=== PATIENT | male | born 1935 | race Caucasian/White ===

== ENCOUNTER → 2016-11-24 | Outpatient (CLI) | payer MEDICARE, OTHER ==
[2016-11-24 12:36] LABS: MEAN CORPUSCULAR HEMOGLOBIN 31.9 pg (27.0-33.0); PLATELET COUNT, AUTOMATED 213 k/mm3 (150-450); RED CELL DISTRIBUTION WIDTH 13.9 % (11.5-14.5); WHITE BLOOD COUNT 7.6 K/mm3 (4.0-10.0)
[2016-11-24 13:13] LABS: ALBUMIN 3.6 GM/DL (3.2-5.2); ALKALINE PHOSPHATASE 105 U/L (45-117); ALT/SGPT 24 U/L (12-78); ANION GAP 8 MEQ/L (8-16); AST/SGOT 23 U/L (15-37); BLOOD UREA NITROGEN 17 MG/DL (7-18); CARBON DIOXIDE LEVEL 30 MEQ/L (21-32); CHLORIDE LEVEL 105 MEQ/L (98-107); CHOLESTEROL LEVEL 143 MG/DL (<200); CREATININE FOR GFR 1.12 MG/DL (0.70-1.30); GLOMERULAR FILTRATION RATE > 60.0 (>35); GLUCOSE, FASTING 115 MG/DL (83-110); POTASSIUM SERUM 4.3 MEQ/L (3.5-5.1); SODIUM LEVEL 143 MEQ/L (136-145); TOTAL PROTEIN 7.2 GM/DL (6.4-8.2); TRIGLYCERIDES LEVEL 72 MG/DL (<150)
[2016-11-24 14:25] LABS: BASOPHILS 3 % (0-4); EOSINOPHILS 1 % (0-5)
== END ==
LOC: M LAB 11:53
PROVIDERS: ATTEND Family Medicine
DX: E11.9 Type 2 diabetes mellitus without complications (principal)

== ENCOUNTER → 2017-01-13 | Outpatient (REF) | payer MEDICARE, OTHER | LOC: M LAB REF 17:12 | PROVIDERS: ATTEND Podiatrist | DX: M20.20 Hallux rigidus, unspecified foot (principal) ==

== ENCOUNTER → 2017-05-27 | Outpatient (CLI) | payer MEDICARE, OTHER ==
[2017-05-27 17:50] LABS: MEAN CORPUSCULAR HEMOGLOBIN 30.6 pg (27.0-33.0); MEAN CORPUSCULAR HGB CONC 33.2 g/dl (32.0-36.5); MEAN CORPUSCULAR VOLUME 92.4 fl (80.0-96.0); RED CELL DISTRIBUTION WIDTH 14.4 % (11.5-14.5); WHITE BLOOD COUNT 7.9 K/mm3 (4.0-10.0)
[2017-05-27 17:56] LABS: ALBUMIN 3.6 GM/DL (3.2-5.2); ALBUMIN/GLOBULIN RATIO 0.92 (1.00-1.93); ALKALINE PHOSPHATASE 89 U/L (45-117); ALT/SGPT 26 U/L (12-78); ANION GAP 6 MEQ/L (8-16); AST/SGOT 20 U/L (15-37); BILIRUBIN,TOTAL 0.7 MG/DL (0.2-1.0); BLOOD UREA NITROGEN 13 MG/DL (7-18); CALCIUM LEVEL 8.9 MG/DL (8.8-10.2); CARBON DIOXIDE LEVEL 28 MEQ/L (21-32); CHLORIDE LEVEL 106 MEQ/L (98-107); CREATININE FOR GFR 1.02 MG/DL (0.70-1.30); GLOMERULAR FILTRATION RATE > 60.0 (>35); GLUCOSE, FASTING 146 MG/DL (83-110); POTASSIUM SERUM 4.6 MEQ/L (3.5-5.1); SODIUM LEVEL 140 MEQ/L (136-145); TOTAL PROTEIN 7.5 GM/DL (6.4-8.2)
== END ==
LOC: M WUC 13:25
PROVIDERS: ATTEND Family Medicine
DX: E11.9 Type 2 diabetes mellitus without complications (principal); N40.1 Benign prostatic hyperplasia with lower urinary tract symptoms

== ENCOUNTER → 2017-11-27 | Outpatient (CLI) | payer MEDICARE, OTHER ==
[2017-11-27 15:03] LABS: HEMATOCRIT 38.6 % (42.0-52.0); HEMOGLOBIN 12.7 g/dl (14.0-18.0); MEAN CORPUSCULAR HEMOGLOBIN 29.9 pg (27.0-33.0); MEAN CORPUSCULAR HGB CONC 32.9 g/dl (32.0-36.5); MEAN CORPUSCULAR VOLUME 90.8 fl (80.0-96.0); PLATELET COUNT, AUTOMATED 179 10^3/uL (150-450); RED BLOOD COUNT 4.25 10^6/uL (4.30-6.10); RED CELL DISTRIBUTION WIDTH 14.6 % (11.5-14.5); WHITE BLOOD COUNT 7.9 10^3/uL (4.0-10.0)
[2017-11-27 15:26] LABS: ANION GAP 5 MEQ/L (8-16); BLOOD UREA NITROGEN 26 MG/DL (7-18); CARBON DIOXIDE LEVEL 29 MEQ/L (21-32); CHLORIDE LEVEL 106 MEQ/L (98-107); CREATININE FOR GFR 1.17 MG/DL (0.70-1.30); GLOMERULAR FILTRATION RATE > 60.0 (>35); GLUCOSE, FASTING 136 MG/DL (70-100); POTASSIUM SERUM 4.9 MEQ/L (3.5-5.1); SODIUM LEVEL 140 MEQ/L (136-145)
== END ==
LOC: M RAD 14:44
DX: Z01.818 Encounter for other preprocedural examination (principal); M86.68 Other chronic osteomyelitis, other site; Z95.0 Presence of cardiac pacemaker; J84.112 Idiopathic pulmonary fibrosis
CPT/HCPCS: 71046

== ENCOUNTER 2017-12-08 11:13 | Day surgery (SDC) | payer MEDICARE, OTHER ==
[~2017-12-08 11:13] MED LIST: LIDOCAINE 2% INJ 100 MG/5 ML SYRINGE As Ordered; MIDAZOLAM INJ 2 MG/2 ML VIAL (J2250) As Ordered; ONDANSETRON 4MG/2ML VIAL (J2405) As Ordered; PROPOFOL 200 MG/20 ML VIAL As Ordered; dexameTHASONE 4 MG/ML 1ML VIAL (J1100) As Ordered; fentaNYL 100 MCG/2 ML INJECTION (J3010) As Ordered
[2017-12-08] MEDS ORDERED: dexameTHASONE 4 MG/ML 1ML VIAL (J1100) As Ordered ×2 (13:13)
[2017-12-08] MEDS: LR 1,000 ML IV ×2 (13:15)
[2017-12-08] MEDS: BUPIVACAINE HCL 0.5% 10 ML VIAL As Ordered ×2 (14:02)
[2017-12-08] MEDS: LIDOCAINE 1% MDV 20ML VIAL As Ordered ×2 (14:02)
[2017-12-08] MEDS ORDERED: PERCOCET 5MG/325MG TAB PO ×2 (15:00)
[2017-12-08] MEDS ORDERED: ONDANSETRON 4MG/2ML VIAL (J2405) IV ×2 (15:00)
[2017-12-08] MEDS ORDERED: LR 1,000 ML IV ×2 (15:00)
[2017-12-08] MEDS ORDERED: fentaNYL 100 MCG/2 ML INJECTION (J3010) IV ×2 (15:00)
== END 2017-12-08 16:24 | disposition home or self-care (01) ==
LOC: M SDC 11:13
DX: L89.890 Pressure ulcer of other site, unstageable (principal); M86.8X8 Other osteomyelitis, other site; I48.0 Paroxysmal atrial fibrillation; I12.9 Hypertensive chronic kidney disease with stage 1 through stage 4 chronic kidney disease, or unspecified chronic kidney disease; E11.9 Type 2 diabetes mellitus without complications; L40.50 Arthropathic psoriasis, unspecified; H54.61 Unqualified visual loss, right eye, normal vision left eye; G62.9 Polyneuropathy, unspecified; N18.9 Chronic kidney disease, unspecified; M06.9 Rheumatoid arthritis, unspecified; Z91.012 Allergy to eggs; Z79.01 Long term (current) use of anticoagulants; Z98.1 Arthrodesis status; Z95.0 Presence of cardiac pacemaker; Z86.718 Personal history of other venous thrombosis and embolism; Z87.81 Personal history of (healed) traumatic fracture
CPT/HCPCS: 28825

== ENCOUNTER 2018-03-08 09:27 | Emergency (ER) | payer MEDICARE, OTHER ==
[2018-03-08 10:45] LABS: HEMATOCRIT 38.3 % (42.0-52.0); HEMOGLOBIN 12.5 g/dl (13.5-17.5); MEAN CORPUSCULAR HEMOGLOBIN 28.4 pg (27.0-33.0); MEAN CORPUSCULAR HGB CONC 32.6 g/dl (32.0-36.5); PLATELET COUNT, AUTOMATED 264 10^3/uL (150-450); RED CELL DISTRIBUTION WIDTH 14.3 % (11.5-14.5)
[2018-03-08 11:17] LABS: URIC ACID 3.6 MG/DL (3.5-7.2)
[2018-03-08 11:31] LABS: ERYTHROCYTE SEDIMENTATION RATE 58 mm/hr (0-20)
== END 2018-03-08 12:23 | disposition home or self-care (01) ==
LOC: M ED 09:27
DX: M25.461 Effusion, right knee (principal); M85.861 Other specified disorders of bone density and structure, right lower leg; M17.11 Unilateral primary osteoarthritis, right knee; L40.50 Arthropathic psoriasis, unspecified; I10 Essential (primary) hypertension; Z95.0 Presence of cardiac pacemaker; Z89.429 Acquired absence of other toe(s), unspecified side; Z79.899 Other long term (current) drug therapy; Z91.012 Allergy to eggs
CPT/HCPCS: 73564

== ENCOUNTER → 2018-03-08 | Outpatient (REF) | payer MEDICARE, OTHER ==
[2018-03-08 18:41] LABS: APPEARANCE, BODY FLUID CLOUDY (CLEAR); CRYSTALS, BODY FLUID NONE SEEN (NONE SEEN); SOURCE, BODY FLUID RT KNEE; SOURCE, BODY FLUID CRYSTALS RT KNEE; SYNOVIAL FLUID COLOR YELLOW (YELLOW)
[2018-03-08 18:53] LABS: BF MONONUCLEAR CELL % 11.5 % (0-0); BF POLYMORPHONUCLEAR CELL % 88.5 % (0-0); RBC BODY FLUID < 2 10^3/uL (<2); WBC BODY FLUID 17412 /uL (0-10)
[2018-03-08 18:56] LABS: BF DIFF IF INDICATED? YES (NO)
[2018-03-08 19:03] LABS: SOURCE, BODY FLUID GLUCOSE RT KNEE; SOURCE, BODY FLUID URIC ACID RT KNEE; URIC ACID, BODY FLUID 3.8 MG/DL (NOT ESTABLISHED)
[2018-03-09 07:30] LABS: MUCIN CLOT TEST 4+ (4+)
[2018-03-09 07:31] LABS: BODY FLUID RHEUMATOID SCREEN NEGATIVE (NEGATIVE)
== END ==
LOC: M LAB REF 17:22
DX: M25.461 Effusion, right knee (principal)

== ENCOUNTER 2018-05-01 07:57 | Emergency (ER) | payer MEDICARE, OTHER | END 2018-05-01 11:23 | disposition home or self-care (01) | LOC: M ED 07:57 | DX: I10 Essential (primary) hypertension (principal); L40.50 Arthropathic psoriasis, unspecified; Z95.0 Presence of cardiac pacemaker; Z91.012 Allergy to eggs; Z79.899 Other long term (current) drug therapy | CPT/HCPCS: 74018 ==

== ENCOUNTER → 2018-05-16 | Outpatient (CLI) | payer MEDICARE, OTHER | LOC: M LRY 14:26 | DX: M19.041 Primary osteoarthritis, right hand (principal); M19.042 Primary osteoarthritis, left hand; M51.36 Other intervertebral disc degeneration, lumbar region; M25.78 Osteophyte, vertebrae; L40.50 Arthropathic psoriasis, unspecified | CPT/HCPCS: 72100; 84550 ==

== ENCOUNTER → 2018-05-16 | Outpatient (REF) | payer MEDICARE, OTHER ==
[2018-05-16 18:34] LABS: ALBUMIN 3.2 GM/DL (3.2-5.2); ALBUMIN/GLOBULIN RATIO 0.62 (1.00-1.93); ALKALINE PHOSPHATASE 84 U/L (45-117); ALT/SGPT 21 U/L (12-78); ANION GAP 9 MEQ/L (8-16); AST/SGOT 17 U/L (7-37); BILIRUBIN,TOTAL 0.8 MG/DL (0.2-1.0); BLOOD UREA NITROGEN 15 MG/DL (7-18); C REACTIVE PROTEIN QUANTITATIV 7.28 MG/DL (0.00-0.30); CALCIUM LEVEL 8.7 MG/DL (8.8-10.2); CARBON DIOXIDE LEVEL 27 MEQ/L (21-32); CHLORIDE LEVEL 104 MEQ/L (98-107); CREATININE FOR GFR 0.95 MG/DL (0.70-1.30); GLOMERULAR FILTRATION RATE > 60.0 (>35); GLUCOSE, FASTING 140 MG/DL (70-100); POTASSIUM SERUM 4.5 MEQ/L (3.5-5.1); RHEUMATOID FACTOR QUANT < 10.0 IU/ML (<15.0); SODIUM LEVEL 140 MEQ/L (136-145); TOTAL PROTEIN 8.4 GM/DL (6.4-8.2); URIC ACID 2.8 MG/DL (3.5-7.2)
[2018-05-16 18:39] LABS: BASO % 0.4 % (0.0-1.0); EOS # 0.1 10^3/uL (0.0-0.50); HEMATOCRIT 38.1 % (42.0-52.0); IMMATURE GRANULOCYTE % 0.4 % (0-3.0); LYMPH # 1.5 10^3/uL (1.5-4.5); LYMPH % 19.3 % (24.0-44.0); MEAN CORPUSCULAR HEMOGLOBIN 27.7 pg (27.0-33.0); MEAN CORPUSCULAR HGB CONC 31.5 g/dl (32.0-36.5); MONO # 1.1 10^3/uL (0.0-0.8); MONO % 13.4 % (0.0-5.0); NEUTROPHILS # 5.2 10^3/uL (1.8-7.7); NEUTROPHILS % 65.5 % (36.0-66.0); PLATELET COUNT, AUTOMATED 228 10^3/uL (150-450); RED BLOOD COUNT 4.33 10^6/uL (4.30-6.10); RED CELL DISTRIBUTION WIDTH 17.1 % (11.5-14.5)
[2018-05-16 18:53] LABS: HEPATITIS B SURFACE ANTIGEN NEGATIVE (NEGATIVE)
[2018-05-16 19:20] LABS: HEPATITIS B CORE ANTIBODY IGM NEGATIVE (NEGATIVE); HEPATITIS C VIRUS ABY INDEX 0.2 INDEX (<0.8)
[2018-05-16 19:22] LABS: ERYTHROCYTE SEDIMENTATION RATE 59 mm/hr (0-20); HEPATITIS A ANTIBODY IGM NEGATIVE (NEGATIVE)
== END ==
LOC: M SFHCLERA 14:12
DX: L40.50 Arthropathic psoriasis, unspecified (principal)
CPT/HCPCS: 84550

== ENCOUNTER → 2018-07-13 | Outpatient (CLI) | payer MEDICARE, OTHER ==
[2018-07-13 11:10] LABS: BASO # 0.1 10^3/uL (0.0-0.2); BASO % 0.8 % (0.0-1.0); EOS # 0.2 10^3/uL (0.0-0.50); EOS % 2.5 % (0.0-3.0); HEMATOCRIT 39.8 % (42.0-52.0); HEMOGLOBIN 12.4 g/dl (13.5-17.5); IMMATURE GRANULOCYTE % 0.3 % (0-3.0); LYMPH # 1.4 10^3/uL (1.5-4.5); LYMPH % 17.4 % (24.0-44.0); MEAN CORPUSCULAR HEMOGLOBIN 27.5 pg (27.0-33.0); MEAN CORPUSCULAR HGB CONC 31.2 g/dl (32.0-36.5); MEAN CORPUSCULAR VOLUME 88.2 fl (80.0-96.0); MONO # 1.1 10^3/uL (0.0-0.8); MONO % 13.5 % (0.0-5.0); NEUTROPHILS # 5.2 10^3/uL (1.8-7.7); NEUTROPHILS % 65.5 % (36.0-66.0); PLATELET COUNT, AUTOMATED 195 10^3/uL (150-450); RED BLOOD COUNT 4.51 10^6/uL (4.30-6.10); RED CELL DISTRIBUTION WIDTH 17.1 % (11.5-14.5); WHITE BLOOD COUNT 7.9 10^3/uL (4.0-10.0)
[2018-07-13 11:42] LABS: ERYTHROCYTE SEDIMENTATION RATE 57 mm/hr (0-20)
[2018-07-13 11:43] LABS: ALBUMIN 3.1 GM/DL (3.2-5.2); ALBUMIN/GLOBULIN RATIO 0.67 (1.00-1.93); ALKALINE PHOSPHATASE 97 U/L (45-117); ALT/SGPT 20 U/L (12-78); ANION GAP 7 MEQ/L (8-16); AST/SGOT 19 U/L (7-37); BILIRUBIN,TOTAL 0.6 MG/DL (0.2-1.0); BLOOD UREA NITROGEN 17 MG/DL (7-18); C REACTIVE PROTEIN QUANTITATIV 3.28 MG/DL (0.00-0.30); CALCIUM LEVEL 8.5 MG/DL (8.8-10.2); CARBON DIOXIDE LEVEL 27 MEQ/L (21-32); CHLORIDE LEVEL 106 MEQ/L (98-107); CREATININE FOR GFR 1.07 MG/DL (0.70-1.30); GLOMERULAR FILTRATION RATE > 60.0 (>35); GLUCOSE, FASTING 146 MG/DL (70-100); POTASSIUM SERUM 4.5 MEQ/L (3.5-5.1); SODIUM LEVEL 140 MEQ/L (136-145); TOTAL PROTEIN 7.7 GM/DL (6.4-8.2)
== END ==
LOC: M LAB 10:42
DX: L40.50 Arthropathic psoriasis, unspecified (principal); M15.8 Other polyosteoarthritis; Z13.820 Encounter for screening for osteoporosis; M79.641 Pain in right hand; M79.642 Pain in left hand; Z51.81 Encounter for therapeutic drug level monitoring; Z79.899 Other long term (current) drug therapy
CPT/HCPCS: 80053

== ENCOUNTER → 2018-07-27 | Outpatient (CLI) | payer MEDICARE, OTHER ==
[2018-07-27 18:35] LABS: ERYTHROCYTE SEDIMENTATION RATE 67 mm/hr (0-20)
[2018-07-27 18:39] LABS: RHEUMATOID FACTOR QUANT < 10.0 IU/ML (<15.0); TOTAL PROTEIN 7.9 GM/DL (6.4-8.2)
[2018-07-27 18:47] LABS: FOLATE > 24.0 NG/ML
[2018-07-27 18:53] LABS: ESTIMATED AVERAGE GLUCOSE 134 MG/DL (60-110); HEMOGLOBIN A1c 6.3 %
[2018-07-28 11:22] LABS: ALBUMIN 3.78 GM/DL (3.29-5.55); ALBUMIN % 47.8 % (55.8-66.1); ALPHA-1-GLOBULIN % 5.3 % (2.9-4.9); ALPHA-1-GLOBULINS 0.42 GM/DL (0.17-0.41); ALPHA-2-GLOBULINS 0.85 GM/DL (0.42-0.99); ALPHA-2-GLOBULINS % 10.7 % (7.1-11.8); BETA-1-GLOBULINS 0.43 GM/DL (0.28-0.60); BETA-1-GLOBULINS % 5.5 % (4.7-7.2); BETA-2-GLOBULINS 0.61 GM/DL (0.19-0.55); BETA-2-GLOBULINS % 7.7 % (3.2-6.5); GAMMA GLOBULINS 1.82 GM/DL (0.65-1.58)
[2018-07-29 14:47] LABS: CERULOPLASMIN 28.1 mg/dL (16.0-31.0)
[2018-07-30 08:11] LABS: ANTI DOUBLE STRAND-DNA AB 1 IU/mL (0-9); ANTINUCLEAR ANTIBODIES DIRECT Positive (Negative); COPPER PLASMA 103 ug/dL (72-166); LEAD BLOOD ADULT 2 ug/dL (0-4); MERCURY LEVEL None Detected ug/L (0.0-14.9); RNP ANTIBODIES <0.2 AI (0.0-0.9); SJOGREN'S ANTI SS-A 1.2 AI (0.0-0.9); SJOGREN'S ANTI SS-B <0.2 AI (0.0-0.9); SMITH ANTIBODIES <0.2 AI (0.0-0.9)
== END ==
LOC: M LAB 17:43
DX: G62.9 Polyneuropathy, unspecified (principal); E11.9 Type 2 diabetes mellitus without complications; E61.0 Copper deficiency; D51.9 Vitamin B12 deficiency anemia, unspecified
CPT/HCPCS: 82525

== ENCOUNTER 2018-09-03 14:22 | Inpatient (IN) | payer MEDICARE, OTHER ==
[2018-09-03 15:02] LABS: BASO % 0.1 % (0.0-1.0); HEMOGLOBIN 11.1 g/dl (13.5-17.5); LYMPH # 0.5 10^3/uL (1.5-4.5); LYMPH % 3.5 % (24.0-44.0); MEAN CORPUSCULAR HEMOGLOBIN 27.8 pg (27.0-33.0); MEAN CORPUSCULAR HGB CONC 31.7 g/dl (32.0-36.5); MEAN CORPUSCULAR VOLUME 87.7 fl (80.0-96.0); MONO # 0.8 10^3/uL (0.0-0.8); MONO % 6.2 % (0.0-5.0); NEUTROPHILS % 89.2 % (36.0-66.0); PLATELET COUNT, AUTOMATED 208 10^3/uL (150-450); RED BLOOD COUNT 3.99 10^6/uL (4.30-6.10); RED CELL DISTRIBUTION WIDTH 18.3 % (11.5-14.5); WHITE BLOOD COUNT 13.5 10^3/uL (4.0-10.0)
[2018-09-03 15:17] LABS: AMMONIA 31 uMOL/L (<32)
[2018-09-03 15:22] LABS: LACTIC ACID SEPSIS PROTOCOL 1.4 MMOL/L (0.4-2.0)
[2018-09-03 15:24] LABS: ABG BASE EXCESS -13.3 (-2.0-2.0); ABG HCO3 12.2 MEQ/L (22.0-26.0); ABG O2 SATURATION 92.7 % (95.0-99.0); ABG PARTIAL PRESSURE CO2 27.7 mmHg (35.0-45.0); ABG PARTIAL PRESSURE O2 76.3 mmHg (75.0-100.0); ABG STANDARD HCO3 14.1 MEQ/L (22.0-26.0); ABG TOTAL CO2 13.1 MEQ/L (23.0-31.0); ABG pH (ARTERIAL) 7.263 UNITS (7.350-7.450)
[2018-09-03 15:44] LABS: KETONE, URINE AUTO RFX NEGATIVE (NEGATIVE); LEUKOCYTE ESTERASE UR AUTO RFX NEGATIVE (NEGATIVE); MUCUS, URINE RFX SMALL (NEGATIVE); NITRITE, URINE AUTO RFX NEGATIVE (NEGATIVE); RBC, URINE AUTO RFX 51 /HPF (0-3); SQUAM EPITHELIAL CELL UR AURFX 0 /HPF (0-6); WBC, URINE AUTO RFX 0 /HPF (0-3)
[2018-09-03 15:52] LABS: ALBUMIN 2.5 GM/DL (3.2-5.2); ALBUMIN/GLOBULIN RATIO 0.58 (1.00-1.93); ALKALINE PHOSPHATASE 77 U/L (45-117); ALT/SGPT 25 U/L (12-78); ANION GAP 18 MEQ/L (8-16); AST/SGOT 31 U/L (7-37); BILIRUBIN,DIRECT 0.2 MG/DL (0.0-0.2); BILIRUBIN,TOTAL 0.5 MG/DL (0.2-1.0); BLOOD UREA NITROGEN 186 MG/DL (7-18); CALCIUM LEVEL 7.5 MG/DL (8.8-10.2); CARBON DIOXIDE LEVEL 14 MEQ/L (21-32); CHLORIDE LEVEL 105 MEQ/L (98-107); CPK CREATINE PHOSPHOKINASE 193 U/L (39-308); GLOMERULAR FILTRATION RATE 3.8 (>35); GLUCOSE, FASTING 122 MG/DL (70-100); MB/CK RELATIVE INDEX 2.23 (< OR =4); POTASSIUM SERUM 8.6 MEQ/L (3.5-5.1); SODIUM LEVEL 137 MEQ/L (136-145); TOTAL PROTEIN 6.8 GM/DL (6.4-8.2)
[2018-09-03] MEDS: NS 1,000 ML IV ×3 (16:00→18:15)
[2018-09-03] MEDS: HumuLIN R (REGULAR) INSULIN (NovoLIN R) **100U/ML** PER UNIT IV (16:01)
[2018-09-03] MEDS: DEXTROSE 50% 50 ML SYRINGE IV (16:01)
[2018-09-03] MEDS: CALCIUM CHLORIDE 10% 1 GM in D5W 100 ML IV (16:02)
[2018-09-03] MEDS: VANCOMYCIN HCL 1,000 MG, VIAL MATE ADAPTER 1 EACH in D5W 250 ML IV (17:00)
[2018-09-03] MEDS: cefTRIAXone SOD 1 GM in D5W MINI-BAG PLUS 50 ML IV (18:15)
[2018-09-03] MEDS: SODIUM BICARBONATE 75 MEQ in NS 0.45% 1,000 ML IV (20:14)
[2018-09-03 21:41] LABS: ANION GAP 13 MEQ/L (8-16); BLOOD UREA NITROGEN 140 MG/DL (7-18); CALCIUM LEVEL 8.3 MG/DL (8.8-10.2); CARBON DIOXIDE LEVEL 18 MEQ/L (21-32); CHLORIDE LEVEL 115 MEQ/L (98-107); CREATININE FOR GFR 9.04 MG/DL (0.70-1.30); GLUCOSE, FASTING 142 MG/DL (70-100); POTASSIUM SERUM 6.3 MEQ/L (3.5-5.1); SODIUM LEVEL 146 MEQ/L (136-145)
[2018-09-04] MEDS: SODIUM BICARBONATE 75 MEQ in NS 0.45% 1,000 ML IV (04:22)
[2018-09-04 06:34] LABS: ANION GAP 8 MEQ/L (8-16); BLOOD UREA NITROGEN 100 MG/DL (7-18); CALCIUM LEVEL 8.1 MG/DL (8.8-10.2); CARBON DIOXIDE LEVEL 23 MEQ/L (21-32); CHLORIDE LEVEL 120 MEQ/L (98-107); CREATININE FOR GFR 5.47 MG/DL (0.70-1.30); GLOMERULAR FILTRATION RATE 10.7 (>35); GLUCOSE, FASTING 86 MG/DL (70-100); POTASSIUM SERUM 5.1 MEQ/L (3.5-5.1); SODIUM LEVEL 151 MEQ/L (136-145)
[2018-09-04] MEDS: D5W 1000ML IV (11:00)
[2018-09-04] MEDS: D5W/0.2% SODIUM CHLORIDE 1,000 ML IV ×2 (11:12→18:11)
[2018-09-04 11:58] LABS: BASO % 0.3 % (0.0-1.0); EOS % 0.4 % (0.0-3.0); HEMOGLOBIN 10.1 g/dl (13.5-17.5); IMMATURE GRANULOCYTE % 0.3 % (0-3.0); LYMPH # 0.7 10^3/uL (1.5-4.5); LYMPH % 9.5 % (24.0-44.0); MEAN CORPUSCULAR HEMOGLOBIN 27.7 pg (27.0-33.0); MEAN CORPUSCULAR HGB CONC 31.6 g/dl (32.0-36.5); MEAN CORPUSCULAR VOLUME 87.7 fl (80.0-96.0); MONO # 0.7 10^3/uL (0.0-0.8); MONO % 9.1 % (0.0-5.0); NEUTROPHILS # 6.2 10^3/uL (1.8-7.7); NEUTROPHILS % 80.4 % (36.0-66.0); PLATELET COUNT, AUTOMATED 149 10^3/uL (150-450); RED BLOOD COUNT 3.65 10^6/uL (4.30-6.10); RED CELL DISTRIBUTION WIDTH 18.7 % (11.5-14.5); WHITE BLOOD COUNT 7.7 10^3/uL (4.0-10.0)
[2018-09-04 12:19] LABS: ANION GAP 8 MEQ/L (8-16); BLOOD UREA NITROGEN 74 MG/DL (7-18); CALCIUM LEVEL 7.9 MG/DL (8.8-10.2); CARBON DIOXIDE LEVEL 22 MEQ/L (21-32); CHLORIDE LEVEL 119 MEQ/L (98-107); CREATININE FOR GFR 3.91 MG/DL (0.70-1.30); GLOMERULAR FILTRATION RATE 15.8 (>35); GLUCOSE, FASTING 223 MG/DL (70-100); SODIUM LEVEL 149 MEQ/L (136-145)
[2018-09-04] MEDS: cefTRIAXone SOD 1 GM in D5W MINI-BAG PLUS 50 ML IV (17:22)
[2018-09-04 18:28] LABS: ANION GAP 5 MEQ/L (8-16); BLOOD UREA NITROGEN 55 MG/DL (7-18); CALCIUM LEVEL 7.8 MG/DL (8.8-10.2); CARBON DIOXIDE LEVEL 26 MEQ/L (21-32); CHLORIDE LEVEL 115 MEQ/L (98-107); CREATININE FOR GFR 2.75 MG/DL (0.70-1.30); GLOMERULAR FILTRATION RATE 23.7 (>35); GLUCOSE, FASTING 139 MG/DL (70-100); SODIUM LEVEL 146 MEQ/L (136-145)
[2018-09-05 00:41] LABS: ANION GAP 6 MEQ/L (8-16); BLOOD UREA NITROGEN 43 MG/DL (7-18); CALCIUM LEVEL 7.8 MG/DL (8.8-10.2); CARBON DIOXIDE LEVEL 24 MEQ/L (21-32); CHLORIDE LEVEL 115 MEQ/L (98-107); CREATININE FOR GFR 2.23 MG/DL (0.70-1.30); GLOMERULAR FILTRATION RATE 30.2 (>35); GLUCOSE, FASTING 175 MG/DL (70-100); SODIUM LEVEL 145 MEQ/L (136-145)
[2018-09-05] MEDS: D5W/0.2% SODIUM CHLORIDE 1,000 ML IV (01:09)
[2018-09-05 05:09] LABS: BASO % 0.3 % (0.0-1.0); EOS # 0.1 10^3/uL (0.0-0.50); EOS % 0.7 % (0.0-3.0); HEMATOCRIT 32.8 % (42.0-52.0); HEMOGLOBIN 10.4 g/dl (13.5-17.5); IMMATURE GRANULOCYTE % 0.4 % (0-3.0); LYMPH # 0.9 10^3/uL (1.5-4.5); LYMPH % 9.7 % (24.0-44.0); MEAN CORPUSCULAR HEMOGLOBIN 27.7 pg (27.0-33.0); MEAN CORPUSCULAR HGB CONC 31.7 g/dl (32.0-36.5); MEAN CORPUSCULAR VOLUME 87.2 fl (80.0-96.0); MONO # 1.1 10^3/uL (0.0-0.8); NEUTROPHILS # 7.5 10^3/uL (1.8-7.7); NEUTROPHILS % 77.9 % (36.0-66.0); PLATELET COUNT, AUTOMATED 162 10^3/uL (150-450); RED BLOOD COUNT 3.76 10^6/uL (4.30-6.10); RED CELL DISTRIBUTION WIDTH 18.6 % (11.5-14.5); WHITE BLOOD COUNT 9.6 10^3/uL (4.0-10.0)
[2018-09-05 05:20] LABS: ANION GAP 8 MEQ/L (8-16); BLOOD UREA NITROGEN 34 MG/DL (7-18); CALCIUM LEVEL 7.8 MG/DL (8.8-10.2); CARBON DIOXIDE LEVEL 23 MEQ/L (21-32); CHLORIDE LEVEL 115 MEQ/L (98-107); CREATININE FOR GFR 1.84 MG/DL (0.70-1.30); GLOMERULAR FILTRATION RATE 37.7 (>35); GLUCOSE, FASTING 162 MG/DL (70-100); POTASSIUM SERUM 4.6 MEQ/L (3.5-5.1); SODIUM LEVEL 146 MEQ/L (136-145)
[2018-09-05] MEDS ORDERED: SLF 3 ML SYR IV (08:15)
[2018-09-05 12:45] LABS: ANION GAP 4 MEQ/L (8-16); BLOOD UREA NITROGEN 28 MG/DL (7-18); CARBON DIOXIDE LEVEL 26 MEQ/L (21-32); CHLORIDE LEVEL 114 MEQ/L (98-107); CREATININE FOR GFR 1.47 MG/DL (0.70-1.30); GLOMERULAR FILTRATION RATE 48.8 (>35); GLUCOSE, FASTING 164 MG/DL (70-100); POTASSIUM SERUM 4.5 MEQ/L (3.5-5.1); SODIUM LEVEL 144 MEQ/L (136-145)
[2018-09-05] MEDS: SLF 3 ML SYR IV ×3 (18:01→22:00)
[2018-09-05] MEDS: cefTRIAXone SOD 1 GM in D5W MINI-BAG PLUS 50 ML IV (18:04)
[2018-09-05 18:33] LABS: ANION GAP 6 MEQ/L (8-16); BLOOD UREA NITROGEN 20 MG/DL (7-18); CALCIUM LEVEL 8.1 MG/DL (8.8-10.2); CARBON DIOXIDE LEVEL 25 MEQ/L (21-32); CHLORIDE LEVEL 113 MEQ/L (98-107); CREATININE FOR GFR 1.24 MG/DL (0.70-1.30); GLOMERULAR FILTRATION RATE 59.4 (>35); GLUCOSE, FASTING 131 MG/DL (70-100); POTASSIUM SERUM 4.2 MEQ/L (3.5-5.1); SODIUM LEVEL 144 MEQ/L (136-145)
[2018-09-05] MEDS: APIXABAN 2.5 MG TAB (ELIQUIS) PO (22:39)
[2018-09-05] MEDS: METOPROLOL TART 25 MG TABLET PO (22:39)
[2018-09-06 05:36] LABS: BASO % 0.3 % (0.0-1.0); EOS # 0.2 10^3/uL (0.0-0.50); EOS % 1.5 % (0.0-3.0); HEMATOCRIT 34.8 % (42.0-52.0); HEMOGLOBIN 10.8 g/dl (13.5-17.5); IMMATURE GRANULOCYTE % 0.4 % (0-3.0); LYMPH # 1.2 10^3/uL (1.5-4.5); LYMPH % 11.9 % (24.0-44.0); MEAN CORPUSCULAR HEMOGLOBIN 27.4 pg (27.0-33.0); MEAN CORPUSCULAR VOLUME 88.3 fl (80.0-96.0); MONO % 9.8 % (0.0-5.0); NEUTROPHILS # 7.7 10^3/uL (1.8-7.7); NEUTROPHILS % 76.1 % (36.0-66.0); PLATELET COUNT, AUTOMATED 158 10^3/uL (150-450); RED BLOOD COUNT 3.94 10^6/uL (4.30-6.10); RED CELL DISTRIBUTION WIDTH 17.5 % (11.5-14.5)
[2018-09-06 05:58] LABS: ALBUMIN 2.3 GM/DL (3.2-5.2); ANION GAP 4 MEQ/L (8-16); BLOOD UREA NITROGEN 15 MG/DL (7-18); CALCIUM LEVEL 7.8 MG/DL (8.8-10.2); CARBON DIOXIDE LEVEL 26 MEQ/L (21-32); CHLORIDE LEVEL 112 MEQ/L (98-107); CREATININE FOR GFR 1.05 MG/DL (0.70-1.30); GLOMERULAR FILTRATION RATE > 60.0 (>35); GLUCOSE, FASTING 101 MG/DL (70-100); PHOSPHORUS LEVEL 2.2 MG/DL (2.5-4.9); POTASSIUM SERUM 4.1 MEQ/L (3.5-5.1); SODIUM LEVEL 142 MEQ/L (136-145)
[2018-09-06] MEDS: SLF 3 ML SYR IV ×3 (06:00→22:00)
[2018-09-06 08:19] LABS: MAGNESIUM LEVEL 1.6 MG/DL (1.8-2.4)
[2018-09-06] MEDS: APIXABAN 2.5 MG TAB (ELIQUIS) PO ×2 (08:44→20:51)
[2018-09-06] MEDS: NEUTRA-PHOS 1.25 GM PACKET PO (08:45)
[2018-09-06] MEDS: METOPROLOL TART 25 MG TABLET PO ×2 (08:45→20:51)
[2018-09-06] MEDS: DULoxetine 20 MG CAP (CYMBALTA) PO (13:01)
[2018-09-06] MEDS: MAG SULF 1GM/100ML (MAG RUN) 1 GM in APPROPRIATE DILUENT 1 EA IV (18:07)
[2018-09-06] MEDS: PREGABALIN 75 MG CAP(LYRICA) PO (20:51)
[2018-09-06] MEDS: D5W/0.45% SODIUM CHLORIDE 1,000 ML IV (20:51)
[2018-09-06] MEDS: SODIUM CHLORIDE 5% OPHTH OINT 3.5 GM OD (21:00)
[2018-09-06] MEDS: COMBIGAN EYE DROPS (PATIENT'S OWN MED) OD (21:00)
[2018-09-06] MEDS: LATANOPROST 0.005% OPHTH SOLN 2.5 ML OD (21:00)
[2018-09-07 05:34] LABS: BASO % 0.4 % (0.0-1.0); EOS # 0.2 10^3/uL (0.0-0.50); EOS % 2.8 % (0.0-3.0); HEMOGLOBIN 11.4 g/dl (13.5-17.5); IMMATURE GRANULOCYTE % 0.6 % (0-3.0); LYMPH # 1.6 10^3/uL (1.5-4.5); LYMPH % 19.7 % (24.0-44.0); MEAN CORPUSCULAR HEMOGLOBIN 27.8 pg (27.0-33.0); MEAN CORPUSCULAR HGB CONC 31.7 g/dl (32.0-36.5); MEAN CORPUSCULAR VOLUME 87.8 fl (80.0-96.0); MONO # 0.8 10^3/uL (0.0-0.8); NEUTROPHILS # 5.6 10^3/uL (1.8-7.7); NEUTROPHILS % 67.5 % (36.0-66.0); PLATELET COUNT, AUTOMATED 166 10^3/uL (150-450); RED CELL DISTRIBUTION WIDTH 17.1 % (11.5-14.5); WHITE BLOOD COUNT 8.3 10^3/uL (4.0-10.0)
[2018-09-07] MEDS: SLF 3 ML SYR IV ×4 (05:34→21:51)
[2018-09-07 05:56] LABS: ALBUMIN 2.3 GM/DL (3.2-5.2); ANION GAP 7 MEQ/L (8-16); BLOOD UREA NITROGEN 14 MG/DL (7-18); CARBON DIOXIDE LEVEL 24 MEQ/L (21-32); CHLORIDE LEVEL 111 MEQ/L (98-107); CREATININE FOR GFR 0.95 MG/DL (0.70-1.30); GLOMERULAR FILTRATION RATE > 60.0 (>35); GLUCOSE, FASTING 108 MG/DL (70-100); PHOSPHORUS LEVEL 2.2 MG/DL (2.5-4.9); POTASSIUM SERUM 4.2 MEQ/L (3.5-5.1); SODIUM LEVEL 142 MEQ/L (136-145)
[2018-09-07] MEDS: DULoxetine 20 MG CAP (CYMBALTA) PO (08:38)
[2018-09-07] MEDS: COMBIGAN EYE DROPS (PATIENT'S OWN MED) OD ×2 (08:39→21:48)
[2018-09-07] MEDS: PREGABALIN 75 MG CAP(LYRICA) PO ×2 (08:39→21:48)
[2018-09-07] MEDS: APIXABAN 2.5 MG TAB (ELIQUIS) PO ×2 (08:39→21:48)
[2018-09-07] MEDS: METOPROLOL TART 25 MG TABLET PO ×2 (08:39→21:50)
[2018-09-07] MEDS: D5W/0.45% SODIUM CHLORIDE 1,000 ML IV (10:21)
[2018-09-07] MEDS: SODIUM CHLORIDE 5% OPHTH OINT 3.5 GM OD (21:00)
[2018-09-07] MEDS: LATANOPROST 0.005% OPHTH SOLN 2.5 ML OD (21:48)
[2018-09-08] MEDS: D5W/0.45% SODIUM CHLORIDE 1,000 ML IV (02:35)
[2018-09-08] MEDS: SLF 3 ML SYR IV ×3 (05:15→20:33)
[2018-09-08 05:50] LABS: BASO # 0.1 10^3/uL (0.0-0.2); BASO % 0.6 % (0.0-1.0); EOS # 0.2 10^3/uL (0.0-0.50); EOS % 2.2 % (0.0-3.0); HEMOGLOBIN 10.8 g/dl (13.5-17.5); IMMATURE GRANULOCYTE % 0.8 % (0-3.0); LYMPH # 1.8 10^3/uL (1.5-4.5); LYMPH % 21.4 % (24.0-44.0); MEAN CORPUSCULAR HEMOGLOBIN 27.6 pg (27.0-33.0); MEAN CORPUSCULAR HGB CONC 31.8 g/dl (32.0-36.5); MONO # 0.9 10^3/uL (0.0-0.8); MONO % 10.9 % (0.0-5.0); NEUTROPHILS # 5.3 10^3/uL (1.8-7.7); NEUTROPHILS % 64.1 % (36.0-66.0); PLATELET COUNT, AUTOMATED 182 10^3/uL (150-450); RED BLOOD COUNT 3.91 10^6/uL (4.30-6.10); RED CELL DISTRIBUTION WIDTH 17.2 % (11.5-14.5); WHITE BLOOD COUNT 8.3 10^3/uL (4.0-10.0)
[2018-09-08 06:18] LABS: ALBUMIN 2.2 GM/DL (3.2-5.2); ANION GAP 6 MEQ/L (8-16); BLOOD UREA NITROGEN 17 MG/DL (7-18); CALCIUM LEVEL 7.5 MG/DL (8.8-10.2); CARBON DIOXIDE LEVEL 25 MEQ/L (21-32); CHLORIDE LEVEL 111 MEQ/L (98-107); CREATININE FOR GFR 1.15 MG/DL (0.70-1.30); GLOMERULAR FILTRATION RATE > 60.0 (>35); GLUCOSE, FASTING 110 MG/DL (70-100); PHOSPHORUS LEVEL 2.6 MG/DL (2.5-4.9); POTASSIUM SERUM 4.2 MEQ/L (3.5-5.1); SODIUM LEVEL 142 MEQ/L (136-145)
[2018-09-08] MEDS: DULoxetine 20 MG CAP (CYMBALTA) PO (08:51)
[2018-09-08] MEDS: PREGABALIN 75 MG CAP(LYRICA) PO ×2 (08:51→20:33)
[2018-09-08] MEDS: APIXABAN 2.5 MG TAB (ELIQUIS) PO ×2 (08:51→20:33)
[2018-09-08] MEDS: COMBIGAN EYE DROPS (PATIENT'S OWN MED) OD ×2 (08:52→20:33)
[2018-09-08] MEDS: METOPROLOL TART 25 MG TABLET PO ×2 (08:52→20:33)
[2018-09-08] MEDS: LATANOPROST 0.005% OPHTH SOLN 2.5 ML OD (20:33)
[2018-09-08] MEDS: SODIUM CHLORIDE 5% OPHTH OINT 3.5 GM OD (21:05)
[2018-09-09 05:36] LABS: BASO % 0.5 % (0.0-1.0); EOS # 0.2 10^3/uL (0.0-0.50); EOS % 2.4 % (0.0-3.0); HEMATOCRIT 33.4 % (42.0-52.0); HEMOGLOBIN 10.4 g/dl (13.5-17.5); IMMATURE GRANULOCYTE % 0.5 % (0-3.0); LYMPH # 1.8 10^3/uL (1.5-4.5); LYMPH % 23.2 % (24.0-44.0); MEAN CORPUSCULAR HEMOGLOBIN 27.5 pg (27.0-33.0); MEAN CORPUSCULAR HGB CONC 31.1 g/dl (32.0-36.5); MEAN CORPUSCULAR VOLUME 88.4 fl (80.0-96.0); MONO # 0.7 10^3/uL (0.0-0.8); MONO % 9.2 % (0.0-5.0); NEUTROPHILS # 4.9 10^3/uL (1.8-7.7); NEUTROPHILS % 64.2 % (36.0-66.0); PLATELET COUNT, AUTOMATED 167 10^3/uL (150-450); RED BLOOD COUNT 3.78 10^6/uL (4.30-6.10); RED CELL DISTRIBUTION WIDTH 17.3 % (11.5-14.5); WHITE BLOOD COUNT 7.6 10^3/uL (4.0-10.0)
[2018-09-09 05:57] LABS: ALBUMIN 2.3 GM/DL (3.2-5.2); ANION GAP 6 MEQ/L (8-16); BLOOD UREA NITROGEN 23 MG/DL (7-18); CALCIUM LEVEL 7.8 MG/DL (8.8-10.2); CARBON DIOXIDE LEVEL 26 MEQ/L (21-32); CHLORIDE LEVEL 110 MEQ/L (98-107); CREATININE FOR GFR 1.18 MG/DL (0.70-1.30); GLOMERULAR FILTRATION RATE > 60.0 (>35); GLUCOSE, FASTING 87 MG/DL (70-100); PHOSPHORUS LEVEL 2.6 MG/DL (2.5-4.9); SODIUM LEVEL 142 MEQ/L (136-145)
[2018-09-09] MEDS: SLF 3 ML SYR IV ×3 (06:00→22:00)
[2018-09-09] MEDS: DULoxetine 20 MG CAP (CYMBALTA) PO (08:25)
[2018-09-09] MEDS: APIXABAN 2.5 MG TAB (ELIQUIS) PO ×2 (08:25→21:50)
[2018-09-09] MEDS: PREGABALIN 75 MG CAP(LYRICA) PO ×2 (08:25→21:49)
[2018-09-09] MEDS: COMBIGAN EYE DROPS (PATIENT'S OWN MED) OD ×2 (08:26→21:49)
[2018-09-09] MEDS: METOPROLOL TART 25 MG TABLET PO ×2 (08:26→21:00)
[2018-09-09] MEDS: LATANOPROST 0.005% OPHTH SOLN 2.5 ML OD (21:48)
[2018-09-09] MEDS: SODIUM CHLORIDE 5% OPHTH OINT 3.5 GM OD (21:48)
[2018-09-10 05:35] LABS: ALBUMIN 2.3 GM/DL (3.2-5.2); ANION GAP 9 MEQ/L (8-16); BLOOD UREA NITROGEN 19 MG/DL (7-18); CALCIUM LEVEL 7.7 MG/DL (8.8-10.2); CARBON DIOXIDE LEVEL 25 MEQ/L (21-32); CHLORIDE LEVEL 111 MEQ/L (98-107); GLOMERULAR FILTRATION RATE > 60.0 (>35); GLUCOSE, FASTING 140 MG/DL (70-100); POTASSIUM SERUM 3.9 MEQ/L (3.5-5.1); SODIUM LEVEL 145 MEQ/L (136-145)
[2018-09-10] MEDS: SLF 3 ML SYR IV ×3 (06:00→22:00)
[2018-09-10] MEDS: DULoxetine 20 MG CAP (CYMBALTA) PO (10:02)
[2018-09-10] MEDS: APIXABAN 2.5 MG TAB (ELIQUIS) PO ×2 (10:02→21:14)
[2018-09-10] MEDS: PREGABALIN 75 MG CAP(LYRICA) PO ×2 (10:03→21:14)
[2018-09-10] MEDS: COMBIGAN EYE DROPS (PATIENT'S OWN MED) OD ×2 (10:03→21:12)
[2018-09-10] MEDS: METOPROLOL TART 25 MG TABLET PO ×2 (10:04→21:14)
[2018-09-10] MEDS: LATANOPROST 0.005% OPHTH SOLN 2.5 ML OD (21:00)
[2018-09-10] MEDS: SODIUM CHLORIDE 5% OPHTH OINT 3.5 GM OD (21:13)
[2018-09-11 05:18] LABS: ALBUMIN 2.5 GM/DL (3.2-5.2); ANION GAP 5 MEQ/L (8-16); BLOOD UREA NITROGEN 19 MG/DL (7-18); CALCIUM LEVEL 8.2 MG/DL (8.8-10.2); CARBON DIOXIDE LEVEL 30 MEQ/L (21-32); CHLORIDE LEVEL 107 MEQ/L (98-107); CREATININE FOR GFR 1.03 MG/DL (0.70-1.30); GLOMERULAR FILTRATION RATE > 60.0 (>35); GLUCOSE, FASTING 100 MG/DL (70-100); PHOSPHORUS LEVEL 1.9 MG/DL (2.5-4.9); POTASSIUM SERUM 3.8 MEQ/L (3.5-5.1); SODIUM LEVEL 142 MEQ/L (136-145)
[2018-09-11] MEDS: SLF 3 ML SYR IV ×3 (06:00→21:15)
[2018-09-11] MEDS: NEUTRA-PHOS 1.25 GM PACKET PO ×3 (10:00→20:06)
[2018-09-11] MEDS: DULoxetine 20 MG CAP (CYMBALTA) PO (10:01)
[2018-09-11] MEDS: METOPROLOL TART 25 MG TABLET PO ×2 (10:01→20:56)
[2018-09-11] MEDS: APIXABAN 2.5 MG TAB (ELIQUIS) PO ×2 (10:01→20:56)
[2018-09-11] MEDS: PREGABALIN 75 MG CAP(LYRICA) PO ×2 (10:02→20:55)
[2018-09-11] MEDS: COMBIGAN EYE DROPS (PATIENT'S OWN MED) OD ×2 (10:03→21:14)
[2018-09-11] MEDS: SODIUM CHLORIDE 5% OPHTH OINT 3.5 GM OD (21:14)
[2018-09-11] MEDS: LATANOPROST 0.005% OPHTH SOLN 2.5 ML OD (21:14)
[2018-09-12] MEDS: SLF 3 ML SYR IV ×2 (05:00→14:07)
[2018-09-12 07:19] LABS: BASO % 0.6 % (0.0-1.0); EOS # 0.1 10^3/uL (0.0-0.50); HEMATOCRIT 36.5 % (42.0-52.0); HEMOGLOBIN 11.4 g/dl (13.5-17.5); IMMATURE GRANULOCYTE % 0.4 % (0-3.0); LYMPH # 2.1 10^3/uL (1.5-4.5); LYMPH % 29.9 % (24.0-44.0); MEAN CORPUSCULAR HEMOGLOBIN 27.9 pg (27.0-33.0); MEAN CORPUSCULAR HGB CONC 31.2 g/dl (32.0-36.5); MEAN CORPUSCULAR VOLUME 89.5 fl (80.0-96.0); MONO % 13.8 % (0.0-5.0); NEUTROPHILS # 3.7 10^3/uL (1.8-7.7); NEUTROPHILS % 53.3 % (36.0-66.0); PLATELET COUNT, AUTOMATED 208 10^3/uL (150-450); RED BLOOD COUNT 4.08 10^6/uL (4.30-6.10); RED CELL DISTRIBUTION WIDTH 16.8 % (11.5-14.5); WHITE BLOOD COUNT 6.9 10^3/uL (4.0-10.0)
[2018-09-12 07:33] LABS: ALBUMIN 2.6 GM/DL (3.2-5.2); ANION GAP 6 MEQ/L (8-16); BLOOD UREA NITROGEN 22 MG/DL (7-18); CALCIUM LEVEL 8.5 MG/DL (8.8-10.2); CARBON DIOXIDE LEVEL 29 MEQ/L (21-32); CHLORIDE LEVEL 105 MEQ/L (98-107); CREATININE FOR GFR 0.91 MG/DL (0.70-1.30); GLOMERULAR FILTRATION RATE > 60.0 (>35); GLUCOSE, FASTING 91 MG/DL (70-100); PHOSPHORUS LEVEL 1.6 MG/DL (2.5-4.9); SODIUM LEVEL 140 MEQ/L (136-145)
[2018-09-12] MEDS: DULoxetine 20 MG CAP (CYMBALTA) PO (08:21)
[2018-09-12] MEDS: APIXABAN 2.5 MG TAB (ELIQUIS) PO (08:21)
[2018-09-12] MEDS: PREGABALIN 75 MG CAP(LYRICA) PO (08:22)
[2018-09-12] MEDS: NEUTRA-PHOS 1.25 GM PACKET PO (08:22)
[2018-09-12] MEDS: COMBIGAN EYE DROPS (PATIENT'S OWN MED) OD (08:23)
[2018-09-12] MEDS: METOPROLOL TART 25 MG TABLET PO (08:23)
== END 2018-09-12 15:23 | disposition home health service (06) | DRG 682 ==
LOC: M MS4PR 09-11 15:14 → M ED 14:22 → M ED INP 17:10 → M PCU 20:00
DX: N17.9 Acute kidney failure, unspecified (principal); G93.41 Metabolic encephalopathy; E87.2 Acidosis; E87.0 Hyperosmolality and hypernatremia; I12.9 Hypertensive chronic kidney disease with stage 1 through stage 4 chronic kidney disease, or unspecified chronic kidney disease; I48.91 Unspecified atrial fibrillation; L40.9 Psoriasis, unspecified; N18.2 Chronic kidney disease, stage 2 (mild); N13.9 Obstructive and reflux uropathy, unspecified; E83.39 Other disorders of phosphorus metabolism; E83.42 Hypomagnesemia; N40.1 Benign prostatic hyperplasia with lower urinary tract symptoms; E86.0 Dehydration; F03.90 Unspecified dementia, unspecified severity, without behavioral disturbance, psychotic disturbance, mood disturbance, and anxiety; E87.5 Hyperkalemia; Z95.0 Presence of cardiac pacemaker; Z79.899 Other long term (current) drug therapy; Z79.01 Long term (current) use of anticoagulants; Z91.012 Allergy to eggs; Z98.42 Cataract extraction status, left eye

== ENCOUNTER → 2018-10-10 | Outpatient (CLI) | payer MEDICARE, OTHER ==
[~2018-10-10] MED LIST changes: +COLA100C5 PO; +COMB0.2S OD; +CYMB1CAP4 PO; +ELIQ5TAB PO; +ENBR50IN4; +FOLI400T PO; +HUMI40IN2 SC; +LATA5OPD OD; +LEG1TAB PO; -LIDOCAINE 2% INJ 100 MG/5 ML SYRINGE As Ordered; +LISI-542 PO; +LYRI150C PO; +LYRI75CA PO; +METO25TA4 PO; -MIDAZOLAM INJ 2 MG/2 ML VIAL (J2250) As Ordered; +MIRA3350 PO; +MUPI2OI TOP; +MURO5OIN OD; +NEUTPW PO; +NORCOTAB PO; -ONDANSETRON 4MG/2ML VIAL (J2405) As Ordered; +OXYC1TAB23 PO; -PROPOFOL 200 MG/20 ML VIAL As Ordered; +SENN8.6T17 PO; +SODI2OPD OD; +SULF1TAB72; +SULF1TAB93 PO; +TRAM50TA2 PO; +TYLE500T78 PO; +VITA100067 PO; +VITA500T PO; +VITA50TA43 PO; +XALA0.007 OD; -dexameTHASONE 4 MG/ML 1ML VIAL (J1100) As Ordered; -fentaNYL 100 MCG/2 ML INJECTION (J3010) As Ordered
[2018-10-10 13:26] LABS: BASO % 0.5 % (0.0-1.0); EOS # 0.2 10^3/uL (0.0-0.50); EOS % 2.1 % (0.0-3.0); HEMATOCRIT 39.8 % (42.0-52.0); HEMOGLOBIN 12.6 g/dl (13.5-17.5); LYMPH # 1.2 10^3/uL (1.5-4.5); LYMPH % 13.6 % (24.0-44.0); MEAN CORPUSCULAR HEMOGLOBIN 28.8 pg (27.0-33.0); MEAN CORPUSCULAR HGB CONC 31.7 g/dl (32.0-36.5); MEAN CORPUSCULAR VOLUME 91.1 fl (80.0-96.0); MONO # 0.9 10^3/uL (0.0-0.8); MONO % 9.8 % (0.0-5.0); NEUTROPHILS # 6.5 10^3/uL (1.8-7.7); NEUTROPHILS % 73.4 % (36.0-66.0); PLATELET COUNT, AUTOMATED 185 10^3/uL (150-450); RED BLOOD COUNT 4.37 10^6/uL (4.30-6.10); WHITE BLOOD COUNT 8.9 10^3/uL (4.0-10.0)
[2018-10-10 13:41] LABS: BLOOD UREA NITROGEN 18 MG/DL (7-18); CALCIUM LEVEL 8.5 MG/DL (8.8-10.2); CARBON DIOXIDE LEVEL 27 MEQ/L (21-32); CHLORIDE LEVEL 107 MEQ/L (98-107); CREATININE FOR GFR 1.06 MG/DL (0.70-1.30); GLOMERULAR FILTRATION RATE > 60.0 (>35); GLUCOSE, FASTING 105 MG/DL (70-100); POTASSIUM SERUM 4.5 MEQ/L (3.5-5.1); SODIUM LEVEL 140 MEQ/L (136-145)
== END ==
LOC: M LAB 11:47
PROVIDERS: ATTEND Family Medicine
DX: N18.9 Chronic kidney disease, unspecified (principal)

== ENCOUNTER 2018-11-18 09:12 | Emergency (ER) | payer MEDICARE, OTHER ==
[~2018-11-18] VITALS: Ht 175.3 cm; Wt 70.5 kg
[2018-11-18] MEDS ORDERED: FLOM0.4C39 PO (09:26)
[2018-11-18] MEDS ORDERED: NS 500 ML IV ONE (10:00)
[2018-11-18] MEDS ORDERED: NS 1,000 ML IV SCH (10:00)
[2018-11-18 10:23] LABS: BASO % 0.2 % (0.0-1.0); EOS # 0.1 10^3/uL (0.0-0.50); EOS % 0.5 % (0.0-3.0); HEMATOCRIT 35.1 % (42.0-52.0); HEMOGLOBIN 11.2 g/dl (13.5-17.5); LYMPH # 0.8 10^3/uL (1.5-4.5); LYMPH % 7.5 % (24.0-44.0); MEAN CORPUSCULAR HEMOGLOBIN 28.4 pg (27.0-33.0); MEAN CORPUSCULAR HGB CONC 31.9 g/dl (32.0-36.5); MEAN CORPUSCULAR VOLUME 89.1 fl (80.0-96.0); MONO # 1.1 10^3/uL (0.0-0.8); MONO % 9.8 % (0.0-5.0); NEUTROPHILS # 9.1 10^3/uL (1.8-7.7); NEUTROPHILS % 81.7 % (36.0-66.0); PLATELET COUNT, AUTOMATED 239 10^3/uL (150-450); RED BLOOD COUNT 3.94 10^6/uL (4.30-6.10); WHITE BLOOD COUNT 11.1 10^3/uL (4.0-10.0)
[2018-11-18 10:52] LABS: BLOOD UREA NITROGEN 20 MG/DL (7-18); CALCIUM LEVEL 8.7 MG/DL (8.8-10.2); CARBON DIOXIDE LEVEL 27 MEQ/L (21-32); CHLORIDE LEVEL 105 MEQ/L (98-107); CREATININE FOR GFR 1.21 MG/DL (0.70-1.30); GLOMERULAR FILTRATION RATE > 60.0 (>35); GLUCOSE, FASTING 160 MG/DL (70-100); POTASSIUM SERUM 4.3 MEQ/L (3.5-5.1); SODIUM LEVEL 140 MEQ/L (136-145)
[2018-11-18] MEDS ORDERED: KEFL500C17 PO (11:49)
[2018-11-18 12:02] VITALS: BP 122/65
== END 2018-11-18 12:24 | disposition home or self-care (01) ==
LOC: M ED 09:12
DX: N30.01 Acute cystitis with hematuria (principal); I10 Essential (primary) hypertension; N40.0 Benign prostatic hyperplasia without lower urinary tract symptoms; Z95.5 Presence of coronary angioplasty implant and graft; Z86.39 Personal history of other endocrine, nutritional and metabolic disease; Z88.1 Allergy status to other antibiotic agents; Z91.012 Allergy to eggs; Z79.899 Other long term (current) drug therapy; Z79.01 Long term (current) use of anticoagulants

== ENCOUNTER → 2018-12-06 | Outpatient (CLI) | payer MEDICARE, OTHER ==
[~2018-12-06] MED LIST changes: +FLOM0.4C39 PO; +KEFL500C17 PO
--- NOTE | 2018-12-06 20:22 | REP ---
CT of the pelvis for bladder calculi: Comparison is 11/13. There is a calculus the dome of the bladder on the right measuring 16 mm in diameter, similar to the comparison study. There is a bladder catheter. The catheter balloon is in the prostatic urethra. The catheter tip is in the bladder lumen and is radio-opaque. There is a small collection of air anteriorly in the bladder, likely from catheterization. The tip of the catheter is in the bladder lumen and is radio-opaque. Just above the catheter balloon there are three calcifications: The largest measures 13 mm, and the and the other two measure 6 mm each. There is a small volume of air anteriorly in the bladder, likely from catheterization. There is a large volume of fecal residue in the rectal ampulla, compatible with impaction. There is bilateral hip osteoarthritis. There is a left inguinal hernia containing omental fat but no bowel. The omental fat within the hernia demonstrates streaky increased density compatible with inflammation or fibrosis. This is similar to the prior study. There is no ascites or adenopathy. Impression: Bladder calculi as described. Dale catheter balloon appears to be in the prostatic urethra. Catheter tip is radio-opaque and in the bladder lumen. The left inguinal hernia containing omental fat but no bowel as described. Possible fecal impaction in the rectal ampulla. Bilateral hip osteoarthritis. Electronically Signed by Edwin Forte MD 12/06/2018 08:14 P
== END ==
LOC: M RAD 17:21
PROVIDERS: ATTEND Nurse Practitioner Women's Health
DX: M16.0 Bilateral primary osteoarthritis of hip (principal); N21.0 Calculus in bladder; L40.50 Arthropathic psoriasis, unspecified; Z96.0 Presence of urogenital implants

== ENCOUNTER → 2018-12-06 | Outpatient (CLI) | payer MEDICARE, OTHER ==
[2018-12-06 18:21] LABS: BASO % 0.3 % (0.0-1.0); EOS # 0.2 10^3/uL (0.0-0.50); EOS % 1.6 % (0.0-3.0); HEMATOCRIT 37.3 % (42.0-52.0); HEMOGLOBIN 11.7 g/dl (13.5-17.5); LYMPH # 1.3 10^3/uL (1.5-4.5); MEAN CORPUSCULAR HEMOGLOBIN 27.7 pg (27.0-33.0); MEAN CORPUSCULAR HGB CONC 31.4 g/dl (32.0-36.5); MEAN CORPUSCULAR VOLUME 88.2 fl (80.0-96.0); MONO # 1.2 10^3/uL (0.0-0.8); NEUTROPHILS # 8.9 10^3/uL (1.8-7.7); NEUTROPHILS % 76.8 % (36.0-66.0); PLATELET COUNT, AUTOMATED 367 10^3/uL (150-450); RED BLOOD COUNT 4.23 10^6/uL (4.30-6.10); WHITE BLOOD COUNT 11.6 10^3/uL (4.0-10.0)
[2018-12-06 18:53] LABS: ALBUMIN 3.2 GM/DL (3.2-5.2); BILIRUBIN,TOTAL 0.7 MG/DL (0.2-1.0); C REACTIVE PROTEIN QUANTITATIV 6.52 MG/DL (0.00-0.30); CALCIUM LEVEL 8.7 MG/DL (8.8-10.2); CREATININE FOR GFR 1.45 MG/DL (0.70-1.30); GLOMERULAR FILTRATION RATE 49.6 (>35); POTASSIUM SERUM 4.9 MEQ/L (3.5-5.1); TOTAL PROTEIN 8.7 GM/DL (6.4-8.2)
[2018-12-06 20:11] LABS: ERYTHROCYTE SEDIMENTATION RATE 79 mm/hr (0-20)
== END ==
LOC: M LAB 17:48
PROVIDERS: ATTEND Internal Medicine Rheumatology
DX: L40.50 Arthropathic psoriasis, unspecified (principal)

== ENCOUNTER 2018-12-24 14:05 | Inpatient (IN) | payer MEDICARE, OTHER ==
[~2018-12-24] VITALS: Ht 175.3 cm; Wt 71.8 kg
[~2018-12-24 14:05] MED LIST changes: +HYDR-3715 PO; +LATA0.0013 OD; -LATA5OPD OD; -NORCOTAB PO
[2018-12-24] MEDS ORDERED: NS 1,000 ML IV ONE ×3 (14:30→20:00)
[2018-12-24] MEDS ORDERED: SULF500TA PO (14:32)
[2018-12-24 14:50] LABS: HEMATOCRIT 44.7 % (42.0-52.0); HEMOGLOBIN 13.7 g/dl (13.5-17.5); MEAN CORPUSCULAR HEMOGLOBIN 27.4 pg (27.0-33.0); MEAN CORPUSCULAR HGB CONC 30.6 g/dl (32.0-36.5); MEAN CORPUSCULAR VOLUME 89.4 fl (80.0-96.0); PLATELET COUNT, AUTOMATED 283 10^3/uL (150-450); WHITE BLOOD COUNT 26.3 10^3/uL (4.0-10.0)
[2018-12-24 15:05] LABS: INR 1.76; PROTHROMBIN TIME 20.8 SECONDS (12.1-14.4)
[2018-12-24 15:15] LABS: ALBUMIN 2.9 GM/DL (3.2-5.2); ALT/SGPT 18 U/L (12-78); BILIRUBIN,DIRECT 0.6 MG/DL (0.0-0.2); BILIRUBIN,TOTAL 1.1 MG/DL (0.2-1.0); BLOOD UREA NITROGEN 58 MG/DL (7-18); CALCIUM LEVEL 8.6 MG/DL (8.8-10.2); CARBON DIOXIDE LEVEL 22 MEQ/L (21-32); CHLORIDE LEVEL 104 MEQ/L (98-107); CPK CREATINE PHOSPHOKINASE 49 U/L (39-308); CREATININE FOR GFR 2.19 MG/DL (0.70-1.30); GLOMERULAR FILTRATION RATE 30.8 (>35); GLUCOSE, FASTING 145 MG/DL (70-100); LIPASE 45 U/L (73-393); MB/CK RELATIVE INDEX 3.47 (< OR =4); SODIUM LEVEL 137 MEQ/L (136-145); TOTAL PROTEIN 7.4 GM/DL (6.4-8.2); TROPONIN I < 0.02 NG/ML (< 0.10)
[2018-12-24 15:23] LABS: ANISOCYTOSIS 1+; ATYPICAL LYMPH 1 % (0-5); LYMPHOCYTES 8 % (16-52); MONOCYTES 9 % (0-8); NEUTROPHILS 74 % (35-75); PLATELET ESTIMATE NORMAL (NORMAL)
[2018-12-24] MEDS ORDERED: DEXTROSE 50% 50 ML SYRINGE IV STA (15:28)
[2018-12-24] MEDS ORDERED: CALCIUM GLUCONATE 1,000 MG in D5W MINI-BAG PLUS 100 ML IV ONE (15:30)
[2018-12-24] MEDS ORDERED: HumuLIN R (REGULAR) INSULIN (NovoLIN R) **100U/ML** PER UNIT IV ONE (15:30)
[2018-12-24] MEDS ORDERED: NS 500 ML IV ONE (16:00)
[2018-12-24] MEDS ORDERED: PIPERACILLIN/TAZOBACTAM SOD 2.25 GM in D5W MINI-BAG PLUS 50 ML IV ONE (16:15)
[2018-12-24] MEDS: GASTROGRAFIN SOLUTION 30ML PO SCH ×2 (16:17→16:30)
[2018-12-24 17:05] LABS: APPEARANCE, URINE CLOUDY (CLEAR); BACTERIA, URINE AUTO 1+ (NEGATIVE); BILIRUBIN, URINE AUTO 2+ (NEGATIVE); BLOOD, URINE BLOOD 3+ (NEGATIVE); CALCIUM OXALATE CRYSTALS SMALL; COLOR, URINE AMBER (YELLOW); GLUCOSE, URINE (UA) AUTO NEGATIVE (NEGATIVE); KETONE, URINE AUTO NEGATIVE (NEGATIVE); LEUKOCYTE ESTERASE, URINE AUTO 2+ (NEGATIVE); MUCUS, URINE SMALL (NEGATIVE); NITRITE, URINE AUTO NEGATIVE (NEGATIVE); PROTEIN, URINE AUTO 2+ mg/dL (NEGATIVE); RBC, URINE AUTO TNTC /HPF (0-3); SPECIFIC GRAVITY URINE AUTO 1.024 (1.002-1.035); SQUAMOUS EPITHELIAL CELL UR AU 0 /HPF (0-6); WBC, URINE AUTO 101 /HPF (0-3)
--- NOTE | 2018-12-24 18:20 | REPVR ---
EXAM: CT Abdomen and Pelvis Without Contrast EXAM DATE/TIME: 12/24/2018 5:55 PM CLINICAL HISTORY: 83 years old, male; Pain; Abdominal pain; Generalized; Prior surgery; Surgery date: 6+ months; Surgery type: Appy; Additional info: Diffuse abd pain, elev lactate TECHNIQUE: Imaging protocol: Axial computed tomography images of the abdomen and pelvis without contrast. Coronal and sagittal reformatted images were created and reviewed. Radiation optimization: All CT scans at this facility use at least one of these dose optimization techniques: automated exposure control; mA and/or kV adjustment per patient size (includes targeted exams where dose is matched to clinical indication); or iterative reconstruction. COMPARISON: CT Pelvis without contrast 12/06/2018 5:41 PM FINDINGS: Lower thorax: There is bibasilar compressive atelectasis. ABDOMEN: Liver: Normal. No mass. Gallbladder and bile ducts: Normal. No calcified stones. No ductal dilation. Pancreas: Normal. No ductal dilation. Spleen: Normal. No splenomegaly. Adrenals: Normal. No mass. Kidneys and ureters: Multiple bilateral non obstructing calculi are demonstrated measuring up to 6 millimeters on the left. Stomach and bowel: Dilated colon demonstrate diffuse thickening of the wall of the transverse left and sigmoid colon. Impacted feces in the rectal vault. Transverse colon dilated to 6.3 centimeters. Findings consistent with distal colonic obstruction. Appendix: No evidence of appendicitis. PELVIS: Bladder: Dale catheter within a collapsed urinary bladder. Reproductive: Unremarkable as visualized. ABDOMEN and PELVIS: Intraperitoneal space: Normal. No free air. No significant fluid collection. Bones/joints: The spine demonstrates moderate to severe degenerative changes. Osteoporosis. Redemonstration of compression deformities of L2, L3 and L5. Soft tissues: Unremarkable. Vasculature: The aorta demonstrates mild atherosclerotic calcification. Lymph nodes: Normal. No enlarged lymph nodes. IMPRESSION: 1. Multiple bilateral non obstructing calculi are demonstrated measuring up to 6 millimeters on the left. 2. Dilated colon demonstrate diffuse thickening of the wall of the transverse left and sigmoid colon. Impacted feces in the rectal vault. Transverse colon dilated to 6.3 centimeters. Findings consistent with distal colonic obstruction. 3. Dale catheter within a collapsed urinary bladder. Electronically signed by: Juan Manuel Michelle On 12/24/2018 18:19:24 PM
--- NOTE | 2018-12-24 19:21 | ECGEPIP ---
Stationary ECG Study [facility] - ED Test Date: 2018-12-24 Pat Name: ADEN GRISSOM Department: Room: - Gender: M [employer] Cl[employer] Tester: formerly [facility] : 1935 Requested By: RAIZA Kc Order Number: [id number] Reading MD: Edilson Stockton Measurements Intervals Jay Rate: 60 P: ME: 0 QRS: -55 QRSD: 154 T: 76 QT: 484 QTc: 484 Interpretive Statements ELECTRONIC VENTRICULAR PACEMAKER SIMILAR TO 09/03/18 Electronically Signed On 12-24-2018 19:21:05 EDT by Edilson Stockton
[2018-12-24] MEDS ORDERED: ONDANSETRON 4 MG TAB (S0181) PO PRN (20:15)
[2018-12-24] MEDS ORDERED: BISACODYL 5 MG TAB PO PRN (20:15)
[2018-12-24] MEDS ORDERED: PENI1TAB17 PO (20:15)
[2018-12-24] MEDS ORDERED: BACT800T5 PO (20:17)
--- NOTE | 2018-12-24 20:22 | HPEPDOC ---
[facility] Medical History & Physical Date of Admission Dec 24, 2018 History and Physical CHIEF COMPLAINT: [abd pain] HISTORY OF PRESENT ILLNESS: This is an 83 yo male with pmhx listed below who presented to the ED for diffused abd pain 4/10 which has been intermittent for the past few days. Per patient's at bedside, he has also been having intermittent confusion. Patient wasn't able to give much hx so most of the history was taken from her. She stated that he has been constipated for the few days now, he went to the bathroom multiple times but was unable to pass stool; however she noticed for the past 2 days he has been going on himself, but they couldn't say if it was diarrhea or not, but didn't seem to be much. He denied blood in his stool, fever, chills, chest pain, sob, headache , nausea, vomiting , hematuria or dysuria. ROS - all 14 point review of system is negative except for whats listed in HPI PAST MEDICAL HISTORY: Hypertension. Atrial fibrillation, status post pacemaker replacement. History of psoriasis- on Humira.. FAMILY HISTORY: noncontributory SOCIAL HISTORY: denied drug, alcohol use and smoking ALLERGIES: Please see below. Physical exam Gen: NAD, healthy appearing , HEENT: normocephalic, atraumatic, no discharge from ears or nose, no oropharyngeal erythema or exudate, neck is supple, no lymphadenopathy, trachea midline CVS: RRR, normal S1n S2, no murmur, rubs, or gallops, no edema, no jvd Resp: LCTAB, no rhonchi, wheezes or crackles Abd : soft, distended and tender abd, decreased BS, some guarding MSK: no swelling, full range of motion, strength 5/5, generalized weakness Neuro: hypoactive, drowsy, takes long to answer questions, and some answers doesn't correspond to the question asked, Psych: confused LABORATORY DATA: See below. IMAGING: [CT abd and pelvis- IMPRESSION: 1. Multiple bilateral non obstructing calculi are demonstrated measuring up to 6 millimeters on the left. 2. Dilated colon demonstrate diffuse thickening of the wall of the transverse left and sigmoid colon. Impacted feces in the rectal vault. Transverse colon dilated to 6.3 centimeters. Findings consistent with distal colonic obstruction. 3. Dale catheter within a collapsed urinary bladder. CXR - official read not in - but looks likely left lower lobe infiltrate, and dilated intestinal loops with stool ] MICROBIOLOGY: Please see below. ASSESSMENT and plan -sepsis - could be 2/2 uti or abd ischemia (given high lactic acid level and abd pain) -guaiac positive per ED, but pt denied hemotochezia -surgeon was contacted for possible bowel ischemia due to very high lactic acid level -c/w ivf -repeat lactic acid level and blood work with vbg -c/w broad spectrum abx - vanc and zosyn for now -f/u blood cx -f/u urine cx -f/u Gi panel and resp panel -bowel regimen -pain meds prn afib - c/w eliquis and metoprolol - monitor hbg htn- hold bp meds dvt ppx - on eliquis full code , from home , no svc Vital Signs Vital Signs Date Time Temp Pulse Resp B/P (MAP) Pulse Ox O2 Delivery O2 Flow Rate FiO2 12/24/18 20:11 107/55 (72) 12/24/18 20:06 60 94 12/24/18 14:38 96.9 16 Room Air Laboratory Data Labs 24H Laboratory Tests 2 12/24/18 14:26: White Blood Count 26.3H, Red Blood Count 5.00, Hemoglobin 13.7, Hematocrit 44.7, Mean Corpuscular Volume 89.4, Mean Corpuscular Hemoglobin 27.4, Mean Corpuscular Hemoglobin Concent 30.6L, Red Cell Distribution Width 17.2H, Platelet Count 283, Monocytes # (Auto) , Nucleated Red Blood Cells % (auto) 0.0, Neutrophils 74, Band Neutrophils 8, Lymphocytes (Manual) 8L, Monocytes (Manual) 9H, Atypical Lymphocytes 1, Platelet Estimate NORMAL, Poikilocytosis , Anisocytosis 1+, Prothrombin Time 20.8H, Prothromb Time International Ratio 1.76, Activated Partial Thromboplast Time 66.0H, Anion Gap 11, Glomerular Filtration Rate 30.8L, Lactic Acid Level 6.2*H, Calcium Level 8.6L, Aspartate Amino Transf (AST/SGOT) 20, Alanine Aminotransferase (ALT/SGPT) 18, Alkaline Phosphatase 83, Total Bilirubin 1.1H, Direct Bilirubin 0.6H, Total Creatine Kinase 49, Creatine Kinase MB 2.0, Creatine Kinase MB Relative Index 3.47, Troponin I < 0.02, Total Protein 7.4, Albumin 2.9L, Albumin/Globulin Ratio 0.64L, Lipase 45L, Thyroid Stimulating Hormone (TSH) 8.640H, Free Thyroxine 1.10 12/24/18 16:43: Urine Appearance CLOUDYH, Urine Color BETHANY, Urine pH 5.0, Urine Specific Alva 1.024, Urine Protein 2+H, Urine Glucose (UA) NEGATIVE, Urine Ketones NEGATIVE, Urine Urobilinogen 4.0H, Urine Bilirubin 2+H, Urine Leukocyte Esterase 2+H, Urine Blood 3+H, Urine Nitrite NEGATIVE, Urine WBC (Auto) 101H, Urine RBC (Auto) TNTCH, Urine Hyaline Casts (Auto) 0, Urine Bacteria (Auto) 1+H, Urine Squamous Epithelial Cells 0, Urine Calcium Oxalate Cryst (Auto) SMALL, Urine Mucus (Auto) SMALL, Urine Sperm (Auto) CBC/BMP Laboratory Tests 12/24/18 14:26 Red Blood Count 5.00, Mean Corpuscular Volume 89.4, Mean Corpuscular Hemoglobin 27.4, Mean Corpuscular Hemoglobin Concent 30.6 L, Red Cell Distribution Width 17 .2 H, Monocytes # (Auto) Microbiology Microbiology 12/24/18 Blood Culture, Received Pending 12/24/18 Blood Culture, Received Pending 12/24/18 Urine Culture, Received Pending Home Medications Scheduled (Leg Cramp Relief) 1 Tab Tab, 1 TAB PO QWEEK (Combigan 0.2-0.5 %) 1 Lora Lora, 1 DROP OD BID Apixaban Base (Eliquis) 5 Mg Tab, 5 MG PO BID Ascorbic Acid (Vitamin C) 500 Mg Tab, 500 MG PO DAILY Duloxetine HCl (Cymbalta) 20 Mg Cap, 20 MG PO BID Folic Acid (Folic Acid) 400 Mcg Tab, 400 MCG PO DAILY Latanoprost (Xalatan) 0.005 % Lora, 1 DROP OD QHS Metoprolol Tartrate (Metoprolol Tartrate) 25 Mg Tab, 25 MG PO BID Penicillin V Potassium (Penicillin V Potassium) 250 Mg Tab, 250 MG PO DAILY STARTED 12/09/2018 Pregabalin (Lyrica) 150 Mg Cap, 150 MG PO BID Pyridoxine HCl (Vitamin B 6) 50 Mg Tab, 100 MG PO DAILY Senna (Senna Laxative) 8.6 Mg Tab, 1 TAB PO QHS Sodium Chloride (Gladis 128 Opth Lora 2%) 300 Drop/15 Ml Soln, 1 DROP OD QHS Sodium Chloride (Gladis 128 Opth Oint 5%) 5 % Oin, 1 DOSE OD QHS Sulfadiazine (Sulfadiazine) 500 Mg Tab, 500 MG PO BID Tamsulosin Hydrochloride (Flomax) 0.4 Mg Cap, 0.4 MG PO QPM Trimethoprim/Sulfamethoxazole (Bactrim Ds 800-160 mg) 1 Tab Tab, 1 TAB PO DAILY RX FILLED 12/07/2018 Vitamin D (Vitamin D) 1,000 Unit Cap, 1,000 UNITS PO DAILY Scheduled PRN Acetaminophen (Tylenol Extra Strength) 500 Mg Tab, 500 MG PO Q4H PRN for PAIN Mupirocin (Mupirocin) 2 % Oin, 1 DOSE TOP BID PRN for INFECTION APPLY TO LEFT TOE Polyethylene Glycol (Miralax) 1 Pow Pow, 17 GM PO DAILY PRN for CONSTIPATION Allergies Coded Allergies: Eggs or Egg-derived Products (Verified Allergy, Intermediate, skin reaction, 07/05/18) Ciprofloxacin (Unverified Adverse Reaction, Mild, HALLUCINATIONS, 09/03/18) JOSE RAUL LOGAN MD Dec 24, 2018 20:22
[2018-12-24] MEDS: NS 1,000 ML IV SCH (20:59)
[2018-12-24] MEDS: ACETAMINOPHEN TAB 650MG DOSE (2X325MG) PO PRN (21:00)
[2018-12-25] VITALS (7 sets, daily range): BP systolic 95–108; BP diastolic 49–67
[2018-12-25 04:21] LABS: BASO % 0.2 % (0.0-1.0); HEMATOCRIT 35.8 % (42.0-52.0); LYMPH # 0.9 10^3/uL (1.5-4.5); LYMPH % 4.6 % (24.0-44.0); MEAN CORPUSCULAR HEMOGLOBIN 27.9 pg (27.0-33.0); MEAN CORPUSCULAR HGB CONC 31.3 g/dl (32.0-36.5); MEAN CORPUSCULAR VOLUME 89.1 fl (80.0-96.0); MONO # 1.8 10^3/uL (0.0-0.8); MONO % 9.4 % (0.0-5.0); NEUTROPHILS # 16.4 10^3/uL (1.8-7.7); NEUTROPHILS % 85.3 % (36.0-66.0); PLATELET COUNT, AUTOMATED 187 10^3/uL (150-450); RED BLOOD COUNT 4.02 10^6/uL (4.30-6.10); WHITE BLOOD COUNT 19.2 10^3/uL (4.0-10.0)
[2018-12-25 04:23] LABS: HEMOGLOBIN 11.2 g/dl (13.5-17.5)
[2018-12-25] MEDS ORDERED: VANCOMYCIN HCL 750 MG, VIAL MATE ADAPTER 1 EACH in D5W 250 ML IV SCH (05:15)
[2018-12-25 05:20] LABS: CALCIUM LEVEL 7.4 MG/DL (8.8-10.2); CREATININE FOR GFR 1.66 MG/DL (0.70-1.30); GLOMERULAR FILTRATION RATE 42.4 (>35); MAGNESIUM LEVEL 2.7 MG/DL (1.8-2.4); POTASSIUM SERUM 4.2 MEQ/L (3.5-5.1); THYROID STIMULATING HORMONE 2.7 uIU/ML (0.358-3.740)
[2018-12-25] MEDS: PIPERACILLIN/TAZOBACTAM SOD 2.25 GM in D5W MINI-BAG PLUS 50 ML IV SCH ×3 (05:33→22:12)
[2018-12-25 05:44] LABS: VENOUS BASE EXCESS -8.6 (-2.0-2.0); VENOUS HCO3 16.2 MEQ/L (23.0-27.0); VENOUS O2 SATURATION 98.4 % (60.0-80.0); VENOUS PARTIAL PRESSURE CO2 31.2 mmHg (38.0-50.0); VENOUS PARTIAL PRESSURE O2 155.9 mmHg (30.0-50.0); VENOUS PH 7.332 UNITS (7.330-7.430); VENOUS STANDARD HCO3 17.6 MEQ/L; VENOUS TOTAL CO2 17.1 MEQ/L (24.0-28.0)
[2018-12-25] MEDS ORDERED: VANCOMYCIN HCL 1,000 MG, VIAL MATE ADAPTER 1 EACH in D5W 250 ML IV ONE (06:00)
--- NOTE | 2018-12-25 06:29 | PHACANCOPD ---
PHARMACY VANCOMYCIN DOSING Pt Demographics Demographics Patient Age:83 , Weight:71.700 , Gender: male Adjusted Body Weight Date: 12/25/18, Adjusted Body Weight: [71.7] Kg-ACTUAL WT Vancomycin Vancomycin indication: SEPSIS Vancomycin Target Ranges: 10-20 mcg/ml Vancomycin Load Y/N: No Load Dose Date Time Vancomycin Load Dose: Date: Time: Vancomycin Dose Date: 12/25/18. Current Vancomycin Dose: [1 GM Q24H] Intermittent Dosing?: No Labs Labs Laboratory Tests 12/24/18 14:26 Red Blood Count 5.00, Mean Corpuscular Volume 89.4, Mean Corpuscular Hemoglobin 27.4, Mean Corpuscular Hemoglobin Concent 30.6 L, Red Cell Distribution Width 17.2 H, Monocytes # (Auto) 12/25/18 04:15 Calcium Level 7.4 L 12/25/18 04:16 Red Blood Count 4.02 L, Mean Corpuscular Volume 89.1, Mean Corpuscular Hemoglob in 27.9, Mean Corpuscular Hemoglobin Concent 31.3 L, Red Cell Distribution Width 16.9 H, Monocytes # (Auto) 1.8 H, Neutrophils (%) (Auto) 85.3 H, Lymphocytes (%) (Auto) 4.6 L, Monocytes (%) (Auto) 9.4 H, Eosinophils (%) (Auto) 0.0, Basophils (%) (Auto) 0.2, Neutrophils # (Auto) 16.4 H, Lymphocytes # (Auto) 0.9 L, Eosinophils # (Auto) 0.0, Basophils # (Auto) 0.0 Micro Microbiology 12/24/18 Blood Culture, Received Pending 12/24/18 Blood Culture, Received Pending 12/25/18 Respiratory Virus Panel (PCR) (GARY), Received Pending 12/24/18 Urine Culture, Received Pending Creatinine Clearance Date:12/25/18. Creatinine Clearance: [34.8]CALCULATED. Pending Labs Vancomycin trough due 12/27@0500 Assessment and Plan Maintaining Current Dose?: Yes Reason for dose change: No Dose Change Pharmacist Note Pharmacist Note Date: 12/25/18. Pharmacist note:83YOM w/sepsis, SCR=1.66,CRCL = 34.8 calcula sara.Receiving Pip/Tazo 2.25grams Q8H plus Vancomycin per Pharmacy consult.Vancomycin 1 gram IV ordered for today @0600, will continue w/1 gram dose until first trough is drawm 12/27@0500(prior to the 3rd dose-will continue to follow patient [facility] Dec 25, 2018 06:29
--- NOTE | 2018-12-25 06:43 | REP ---
CHEST, PORTABLE: AP portable view of the chest is performed and compared to a prior study of 09/03/2018. There is fibrotic change in the left lung base which is stable. There is mild elevation of the right hemidiaphragm unchanged. Bowel loops are seen beneath both hemidiaphragms. No new infiltrates are seen. The heart is upper limits of normal in size. Mediastinal silhouette is unchanged. Left pacemaker is again noted. IMPRESSION: No acute pulmonary disease. Electronically Signed by Edwin Plaza MD 12/25/2018 10:19 A
[2018-12-25] MEDS ORDERED: SULF500T2 PO (07:19)
[2018-12-25] MEDS ORDERED: sulfaSALAzine 500 MG TABEC PO SCH (09:00)
[2018-12-25] MEDS: METOPROLOL TART 25 MG TABLET PO SCH ×2 (09:00→21:00)
[2018-12-25] MEDS ORDERED: APIXABAN 2.5 MG TAB (ELIQUIS) PO SCH (09:00)
[2018-12-25] MEDS ORDERED: APIXABAN 5 MG TAB (ELIQUIS) PO SCH (09:00)
[2018-12-25] MEDS: VITAMIN D 1,000 INTERNATIONAL UNITS TABLET PO SCH (10:59)
[2018-12-25] MEDS: NS 1,000 ML IV SCH ×3 (10:59→16:28)
[2018-12-25] MEDS: PANTOPRAZOLE 40MG TAB (PROTONIX) PO SCH (10:59)
[2018-12-25] MEDS: DULoxetine 20 MG CAP (CYMBALTA) PO SCH ×2 (10:59→22:17)
[2018-12-25] MEDS: PREGABALIN 75 MG CAP(LYRICA) PO SCH ×2 (11:00→22:13)
[2018-12-25] MEDS: PYRIDOXINE 50 MG TAB PO SCH (11:00)
[2018-12-25] MEDS: FLEET ENEMA PR PRN (12:00)
--- NOTE | 2018-12-25 12:34 | ER ---
DATE OF CONSULTATION: 12/24/2018 REASON FOR CONSULTATION: Fecal impaction with abdominal pain and hypotension. HISTORY OF THE PRESENT ILLNESS: The patient is a pleasant 83-year-old man who was brought to the emergency department after suffering a fall at home. The patient has some underlying medical issues. In particular, he has had an indwelling Dale catheter since 09/03/2018. He has had a previous urinary tract infection as recently as a month ago. The patient has had issues with constipation with some recent tenesmus and also reports having had some diarrhea. He has a pacemaker in place and remains on anticoagulation, apparently for atrial fibrillation. His dietary intake has been poor for the last couple of days. He reports he has been having some diarrhea but feels the urge to have a bowel movement, particularly when standing. Today, his was trying to help him to the shower with the patient using his walker, but he became weak and fell, striking his shoulder area on the bedside table. She called her son, and they were able to help him back to bed, but then they called an ambulance to bring him to the emergency department. In the emergency department, he was found to be hypotensive. A CT scan was obtained, which shows some changes in the colon with perhaps some thickening and a fecal impaction in the rectum. He has some abdominal pain and tenderness, and I was consulted to evaluate the patient. ALLERGIES: Are reported to CIPROFLOXACIN and also to EGGS or EGG-DERIVED PRODUCTS. MEDICATIONS: At time of his presentation are multiple and include Tylenol, Eliquis, vitamin C, Combigan eyedrops, Cymbalta, folic acid, Xalatan eyedrops, metoprolol, mupirocin to his left toe, penicillin, MiraLAX as needed, Lyrica, vitamin B6, senna every evening, sulfadiazine, Flomax, Bactrim, and vitamin D. PAST SURGICAL HISTORY: Is significant for a pacemaker implant. He has undergone cataract surgery on one side. He had an appendectomy over 50 years ago. MEDICAL HISTORY: Is significant for hypertension. He has atrial fibrillation and is on Eliquis for this. He has a pacemaker in place. He has a history of some chronic constipation. He was admitted to the hospital with acute kidney injury in September of 2018. He has had an indwelling Dale since then because of urinary retention. He does have a history of arthritis. FAMILY HISTORY: Is noncontributory. REVIEW OF SYSTEMS: Shows nothing other than what was outlined in the history of the present illness. SOCIAL HISTORY: The patient is and accompanied to the hospital by his spouse. He also has two sons, who accompany him here, as well. PHYSICAL EXAMINATION: Reveals a somewhat pale elderly man sitting up quietly in the stretcher in the emergency department. He is alert and appropriate. His blood pressure currently is approximately 105 systolic by monitor. Sclerae are anicteric. Skin turgor is fair. Neck is supple without apparent mass. Heart examination shows a regular rhythm by examination. He has a pacemaker palpable in the left infraclavicular fossa. The lungs show bilateral breath sounds. The abdomen is mildly protuberant and fairly firm diffusely. He has some bowel sounds present, though they are fairly faint. He has diffuse mild tenderness to palpation, perhaps slightly worse low in the left lower quadrant. There is no evident hernia. He has an old scar obliquely in the right lower quadrant, presumably from his appendectomy. He does have palpable radial pulses, though these are perhaps somewhat weak. LABORATORY STUDIES: In the emergency department reveal a white blood cell count of 26,000 with 74% neutrophils, 8% bands, 8 lymphocytes, and 9 monocytes. His hemoglobin is 14 with a hematocrit of 45, and his platelet count is 283,000. His coagulation panel (coags) show a PT of 20.8, INR of 1.76, and a PTT of 66. His chemistry profile shows a sodium of 137, potassium 6.0, chloride 104, CO2 of 22, BUN of 58, creatinine of 2.2, and a glucose of 145. Lactic acid is 6.2. Total bilirubin is 1.1, direct is 0.6, and his other liver function tests are normal. Troponin is less than 0.02. Total protein is 7.4 with an albumin of 2.9. Lipase is low at 45. Urinalysis shows a specific gravity of 1.024. Urine protein is 2+, and the urine blood is 3+. Leukocyte esterase is 2+. There are 101 white cells and too numerous to count red cells in the urine. Urine bacteria is 1+. The CT scan of the abdomen and the pelvis, I reviewed personally. He appears to have a large bolus of stool in the rectum consistent with fecal impaction. There is some stool in the cecum and right colon, as well, as well as some extending into the proximal transverse colon. The sigmoid colon is moderately dilated by air, and there is air throughout the remainder of the colon, as well. There is no sign of small-bowel obstruction. There is no evidence of perforation. The radiologist interpreted the study as showing bilateral nonobstructing renal calculi. There was some thickening in the wall of the transverse, descending, and sigmoid colon. Dale catheter was noted in the urinary bladder. IMPRESSION: I believe the patient has perhaps two issues ongoing currently. He has an indwelling Dale catheter and quite possibly has an acute urinary tract infection secondary to this. This may account for his elevated white count and his relative hypotension. However, he also appears to have a fecal impaction. He has reported some diarrhea, but this presumably is just leakage around the fecal bolus. This certainly would put off his appetite, and I suspect that his poor oral intake over the last 2 days has contributed to his status. He was certainly somewhat hypotensive on presentation, and this is slightly improved. He does have some mild diffuse abdominal tenderness. There is a concern that he could with hypotension develop ischemic colon, but I do not believe this is the case currently. At this point, I believe it would be most appropriate for him to be admitted by the medicine service for treatment of his presumed sepsis and hypotension with hydration and antibiotics. His fecal impaction should be addressed by either manual disimpaction or enemas as necessary to try to break up his impaction. I will be happy to follow along for any evidence of colonic ischemia. In the worst circumstances, this could bring us to a point of having to consider a resection of colon. Again, I do not believe that we are at that point now, and I believe his other issues should be recoverable. JUAN
[2018-12-25] MEDS ORDERED: BISACODYL 10 MG SUPP PR ONE (14:45)
[2018-12-25] MEDS ORDERED: HEPARIN SOD (PORCINE) 5000 UNITS/ML VIAL IV PRN (16:00)
--- NOTE | 2018-12-25 17:07 | IPNPDOC ---
Subjective Date Seen The patient was seen on 12/25/18. Subjective Chief Complaint/HPI Patient seen and examined at the bedside. He reports that he is feeling better today and notes that his abdominal pain is improved. He also states that he has had several bowel movements since being admitted. He is requesting something to drink this afternoon. Otherwise, no acute overnight events noted. Objective Physical Examination General Exam: Positive: Alert, Cooperative, No Acute Distress ENT Exam: Positive: Atraumatic, Mucous membr. moist/pink Chest Exam: Positive: Clear to auscultation, Normal air movement Heart Exam: Positive: Rate Normal, Normal S1, Normal S2 Abdomen Exam: Positive: Soft, Tenderness (mild tenderness to deep palpation in all quadrants. No rebound tenderness, guarding, or rigidity noted.), Other (tympanic sounds noted on percussion) Extremity Exam: Negative: Tenderness, Swelling Psych Exam: Positive: Oriented x 3 Assessment /Plan Plan/VTE VTE Prophylaxis Ordered?: Yes Plan Sepsis possibly 2/2 Underlying UTI in a patient with a Chronic Dale Catheter and recurrent UTI's UA noted, Urine culture pending Urine Culture history notable for Pseudomonas and E Faecalis in the past Cont Vanco and Zosyn as ordered Blood pressure improved following IVF Hydration Patient with improved mentation this afternoon, AAO x 4 We will cont to monitor Abd Pain likely 2/2 Fecal Impaction, less likely Ischemic Colon Abdominal exam notable for mild diffuse pain on deep palpation--no rebound tenderness, guarding, or rigidity noted. CT scan of the abdomen/pelvis notable for findings consistent with distal colonic obstruction due to impacted feces in the rectal vault Senokot, Dulcolax suppository, and Enema ordered Patient reports improvement of his abdominal symptoms today, and notes that he has had several bowel movements since admission which have been mostly loose. He also reports an improvement of his appetite and is requesting something to drink--we will start the patient on a clear liquid diet at this time Surgical input noted, we will continue to follow with their recommendations We will continue supportive care at this time and monitor the patient Lactic acidosis likely 2/2 Above, resolved Improved following IV fluid hydration Acute kidney injury superimposed on chronic kidney disease stage III Likely 2/2 dehydration, hypotension from above Baseline Serum Cr ~1.2-1.4 Serum Cr improved following IVF Hydration 2.19-->1.6 Cont gentle IVF Hydration, this can be discontinued if the patient is tolerating a liquid diet. Hold nephrotoxins We will continue to monitor the patient's kidney status History of atrial fibrillation s/p PPM Metoprolol ordered with holding parameters We will hold the patient's eliquis at this time, should he possibly require surgical intervention during this hospitalization Heparin gtt ordered Metabolic encephalopathy 2/2 UTI, improved Patient's family states that he is close to his baseline at this time BPH Continue Flomax GERD Continue PPI Anxiety/depression Continue duloxetine, Lyrica DVT prophylaxis Heparin gtt CODE STATUS discussed with the patient's and son at the bedside. The patient is to remain a full code at this time, as they will take the MOLST form home to review and discuss it with the patient's other son. Disposition-pending clinical improvement. VS, I&O, 24H, Fishbone Vital Signs/I&O Vital Signs Date Time Temp Pulse Resp B/P (MAP) Pulse Ox O2 Delivery O2 Flow Rate FiO2 12/25/18 16:00 97.1 61 20 96/54 (68) 97 12/25/18 01:30 Room Air I&O- Last 24 Hours up to 6 AM 12/25/18 06:00 Intake Total 3160 ml Output Total 0 ml Balance 3160 ml Laboratory Data 24H LABS Laboratory Tests 2 12/25/18 04:15: Anion Gap 11, Glomerular Filtration Rate 42.4, Blood Urea Nitrogen 66H, Creatinine 1.66H, Sodium Level 140, Potassium Level 4.2#, Chloride Level 111H, Carbon Dioxide Level 18L, Calcium Level 7.4L, Magnesium Level 2.7H, Troponin I < 0.02, Thyroid Stimulating Hormone (TSH) 2.700 12/25/18 04:16: Immature Granulocyte % (Auto) 0.5, White Blood Count 19.2H, Red Blood Count 4.02L, Hemoglobin 11.2#L, Hematocrit 35.8L, Mean Corpuscular Volume 89.1, Mean Corpuscular Hemoglobin 27.9, Mean Corpuscular Hemoglobin Concent 31.3L, Red Cell Distribution Width 16.9H, Platelet Count 187, Neutrophils (%) (Auto) 85.3H, Lymphocytes (%) (Auto) 4.6L, Monocytes (%) (Auto) 9.4H, Eosinophils (%) (Auto) 0.0, Basophils (%) (Auto) 0.2, Neutrophils # (Auto) 16.4H, Lymphocytes # (Auto) 0.9L, Monocytes # (Auto) 1.8H, Eosinophils # (Auto) 0.0, Basophils # (Auto) 0.0, Nucleated Red Blood Cells % (auto) 0.0 12/25/18 05:32: Blood Gas Puncture Site UNKNOWN, Blood Gas Bicarbonate Standard 17.6, Venous B lood pH 7.332, Venous Blood Partial Pressure CO2 31.2L, Venous Blood Partial Pressure O2 155.9H, Venous Blood Total Carbon Dioxide 17.1L, Venous Blood HCO3 16.2L, Venous Blood Oxygen Saturation 98.4H, Venous Blood Base Excess -8.6L, Lactic Acid Level 2.0 12/25/18 12:05: Troponin I < 0.02 12/25/18 16:48: CBC/BMP Laboratory Tests 12/25/18 04:15 Calcium Level 7.4 L 12/25/18 04:16 Red Blood Count 4.02 L, Mean Corpuscular Volume 89.1, Mean Corpuscular Hemoglobin 27.9, Mean Corpuscular Hemoglobin Concent 31.3 L, Red Cell Distribution Width 16.9 H, Neutrophils (%) (Auto) 85.3 H, Lymphocytes (%) (Auto) 4.6 L, Monocytes (%) (Auto) 9.4 H, Eosinophils (%) (Auto) 0.0, Basophils (%) (Auto) 0.2, Neutrophils # (Auto) 16.4 H, Lymphocytes # (Auto) 0.9 L, Monocytes # (Auto) 1.8 H, Eosinophils # (Auto) 0.0, Basophils # (Auto) 0.0 Microbiology Microbiology 12/24/18 Blood Culture - Preliminary, Resulted No growth after 24 hours . All specim... 12/24/18 Blood Culture - Preliminary, Resulted No growth after 24 hours . All specim... 12/25/18 Respiratory Virus Panel (PCR) ([facility]ARY) - Final, Complete 12/24/18 Urine Culture, Received Pending DANY GAMING MD Dec 25, 2018 17:07
[2018-12-25] MEDS: HEPARIN DRIP 25,000 UNITS in APPROPRIATE DILUENT 1 EA IV SCH (18:21)
[2018-12-25] MEDS ORDERED: SENNA 8.6 MG TAB (SENOKOT) PO SCH (21:00)
[2018-12-25] MEDS: TAMSULOSIN 0.4 MG CAP PO SCH (21:00)
[2018-12-25] MEDS: SODIUM CHLORIDE 5% OPHTH OINT 3.5 GM OD SCH (22:12)
[2018-12-25] MEDS: SENNA 8.6 MG TAB (SENOKOT) PO SCH (22:13)
[2018-12-25] MEDS: LATANOPROST 0.005% OPHTH SOLN 2.5 ML OD SCH (22:15)
[2018-12-25] MEDS: SOD CHLORIDE OD SCH (22:16)
[2018-12-26 04:00] VITALS: BP 105/67
--- NOTE | 2018-12-26 04:51 | IPN ---
DATE: 12/25/2018 HISTORY: The patient was admitted yesterday with some hypotension, dehydration and fecal impaction with a markedly elevated white count and possible colon thickening by CT scan. He did have some mild diffuse abdominal pain and tenderness. I thought his clinical picture was most consistent with a urinary tract infection from his indwelling Dale catheter and possible some contribution to the dehydration by his fecal impaction. The patient was admitted by the hospitalist and hydrated and received antibiotics. His lactic acid had fallen to normal following hydration. VITAL SIGNS: The patient has been afebrile since admission. His pulse is in the 60s. Blood pressure today is in the mid 90s to low 100 systolic. INTAKE AND OUTPUT: He had 2600 recorded in yesterday. He has had several smaller bowel movements recorded today. There is no measured urine output noted, though does have a Dale catheter and there is fluid in his catheter bag. PHYSICAL EXAMINATION: The patient appears a little bit more alert and comfortable today. He remains slightly pale. ABDOMEN: The abdomen is a little softer. He does have some bowel sounds present. LABORATORIES: Laboratory studies this morning showed a white count of 19,000 down from 26. His hemoglobin was 11 with a hematocrit of 36 and a platelet count is 187,000. Differential count is improved with 85% neutrophils, 5% lymphocytes and 9% monocytes. Chemistry profile today shows a sodium of 140, potassium 4.2, chloride 111, CO2 of 18, BUN of 66, creatinine 1.66 and glucose of 129. His troponin remains less than 0.02. IMPRESSION: The patient appears somewhat more comfortable today. His abdomen is a little softer and seems less tender. His laboratory studies are improved in a number of ways. RECOMMENDATIONS: I would recommend continuing the intravenous (IV) antibiotics and any efforts to resolve completely his fecal impaction. I will continue to visit the patient for the next day or two to ensure that things continue to improve. JUAN
[2018-12-26] MEDS: PIPERACILLIN/TAZOBACTAM SOD 2.25 GM in D5W MINI-BAG PLUS 50 ML IV SCH ×3 (05:32→20:34)
[2018-12-26] MEDS ORDERED: VANCOMYCIN HCL 1,000 MG, VIAL MATE ADAPTER 1 EACH in D5W 250 ML IV SCH (06:00)
[2018-12-26 08:00] VITALS: BP 95/54
[2018-12-26 08:29] LABS: HEMOGLOBIN 9.4 g/dl (13.5-17.5); MEAN CORPUSCULAR HEMOGLOBIN 27.3 pg (27.0-33.0); MEAN CORPUSCULAR HGB CONC 31.3 g/dl (32.0-36.5); MEAN CORPUSCULAR VOLUME 87.2 fl (80.0-96.0); PLATELET COUNT, AUTOMATED 156 10^3/uL (150-450); RED BLOOD COUNT 3.44 10^6/uL (4.30-6.10); WHITE BLOOD COUNT 9.8 10^3/uL (4.0-10.0)
[2018-12-26 08:44] LABS: BLOOD UREA NITROGEN 40 MG/DL (7-18); CALCIUM LEVEL 6.8 MG/DL (8.8-10.2); CARBON DIOXIDE LEVEL 23 MEQ/L (21-32); CHLORIDE LEVEL 112 MEQ/L (98-107); CREATININE FOR GFR 0.98 MG/DL (0.70-1.30); GLOMERULAR FILTRATION RATE > 60.0 (>35); GLUCOSE, FASTING 115 MG/DL (70-100); MAGNESIUM LEVEL 2.4 MG/DL (1.8-2.4); POTASSIUM SERUM 3.3 MEQ/L (3.5-5.1); SODIUM LEVEL 142 MEQ/L (136-145)
[2018-12-26] MEDS: METOPROLOL TART 25 MG TABLET PO SCH ×2 (09:00→20:35)
[2018-12-26] MEDS: VITAMIN D 1,000 INTERNATIONAL UNITS TABLET PO SCH (09:28)
[2018-12-26] MEDS: DULoxetine 20 MG CAP (CYMBALTA) PO SCH ×2 (09:28→20:35)
[2018-12-26] MEDS: PANTOPRAZOLE 40MG TAB (PROTONIX) PO SCH (09:28)
[2018-12-26] MEDS: PREGABALIN 75 MG CAP(LYRICA) PO SCH ×2 (09:28→20:35)
[2018-12-26] MEDS: PYRIDOXINE 50 MG TAB PO SCH (09:28)
[2018-12-26] MEDS: NS 1,000 ML IV SCH (10:03)
[2018-12-26] MEDS ORDERED: POTASSIUM CHLORIDE 10 MEQ SR TABLET PO ONE (11:00)
[2018-12-26 12:00] VITALS: BP 96/54
--- NOTE | 2018-12-26 14:48 | IPNPDOC ---
Subjective Date Seen The patient was seen on 12/26/18. Subjective Chief Complaint/HPI Patient seen and examined at bedside. Patient reports that his abdominal pain has resolved. He is tolerating a clear liquid diet without any acute complaints, this will be advanced. Otherwise, the patient's white blood cell count has normalized. He continues to pass bowel movements with the current bowel care regimen. Objective Physical Examination General Exam: Positive: Alert, Cooperative, No Acute Distress ENT Exam: Positive: Atraumatic, Mucous membr. moist/pink Chest Exam: Positive: Clear to auscultation, Normal air movement Heart Exam: Positive: Rate Normal, Normal S1, Normal S2 Abdomen Exam: Positive: Soft; Negative: Tenderness Extremity Exam: Negative: Tenderness, Swelling Psych Exam: Positive: Oriented x 3 Assessment /Plan Plan/VTE VTE Prophylaxis Ordered?: Yes Plan Sepsis possibly 2/2 Underlying UTI in a patient with a Chronic Dale Catheter and recurrent UTI's UA noted, Urine culture positive for pseudomonas Vanco D/C'd and Zosyn continued (fluoroquinolone allergy) Blood pressure improved following IVF Hydration We will cont to monitor Abd Pain likely 2/2 Fecal Impaction, less likely Ischemic Colon Improved today following IVF Hydration, and bowel care regimen which has helped the patient have multiple BMs since admission Tolerating diet, abd resolved Advance diet as tolerated Lactic acidosis likely 2/2 Above, resolved Improved following IV fluid hydration Acute kidney injury superimposed on chronic kidney disease stage III, resolved History of atrial fibrillation s/p PPM Metoprolol ordered with holding parameters We will hold the patient's eliquis at this time, should he possibly require surgical intervention during this hospitalization Heparin gtt ordered--We will transition back to PO NOAC if the patient remains stable in the next 24-48hrs Metabolic encephalopathy 2/2 UTI, resolved BPH Continue Flomax GERD Continue PPI Anxiety/depression Continue duloxetine, Lyrica DVT prophylaxis Heparin gtt Dispo--pending clinical improvement. PT ordered for functional optimization. VS, I&O, 24H, Fishbone Vital Signs/I&O Vital Signs Date Time Temp Pulse Resp B/P (MAP) Pulse Ox O2 Delivery O2 Flow Rate FiO2 12/26/18 09:00 63 95/54 12/26/18 08:00 96.3 18 97 12/25/18 01:30 Room Air I&O- Last 24 Hours up to 6 AM 12/26/18 06:00 Intake Total 2670 ml Output Total 1850 ml Balance 820 ml Laboratory Data 24H LABS Laboratory Tests 2 12/25/18 16:48: Activated Partial Thromboplast Time 54.8H 12/26/18 00:16: Activated Partial Thromboplast Time 94.7H 12/26/18 06:17: Nucleated Red Blood Cells % (auto) 0.0, Anion Gap 7L, Glomerular Filtration Rate > 60.0, Blood Urea Nitrogen 40H, Creatinine 0.98, Sodium Level 142, Potassium Level 3.3#L, Chloride Level 112H, Carbon Dioxide Level 23, Calcium Level 6.8L, Magnesium Level 2.4 12/26/18 06:20: Activated Partial Thromboplast Time 117.2H 12/26/18 13:53: Activated Partial Thromboplast Time 74.5H CBC/BMP Laboratory Tests 12/26/18 06:17 Red Blood Count 3.44 L, Mean Corpuscular Volume 87.2, Mean Corpuscular Hemoglobin 27.3, Mean Corpuscular Hemoglobin Concent 31.3 L, Red Cell Distribution Width 17.2 H, Calcium Level 6.8 L Microbiology Microbiology 12/24/18 Blood Culture - Preliminary, Resulted No growth after 24 hours . All specim... 12/24/18 Blood Culture - Preliminary, Resulted No Growth after 48 hours. All Specime... 12/25/18 Stool Occult Blood ([facility]) - Final, Complete 12/25/18 Gastrointestinal Tract Panel (PCR) - Final, Complete 12/25/18 Respiratory Virus Panel (PCR) ([facility]) - Final, Complete 12/24/18 Urine Culture - Final, Complete Pseudomonas Aeruginosa DANY GAMING MD Dec 26, 2018 14:48
[2018-12-26] MEDS: FLEET ENEMA PR PRN (14:58)
[2018-12-26 16:00] VITALS: BP 98/51
[2018-12-26] MEDS: HEPARIN DRIP 25,000 UNITS in APPROPRIATE DILUENT 1 EA IV SCH (17:10)
--- NOTE | 2018-12-26 19:52 | IPN ---
DATE: 12/26/2018 HISTORY: The patient was admitted on the with some hypotension and dehydration and fecal impaction. His white count was elevated and there was a suggestion of some possible colon thickening. He has improved with hydration and further medical treatment. He has been undergoing attempts at resolution of his fecal impaction using a variety of laxatives. He reports that he was given a enema earlier today. Vital signs: Show that his systolic blood pressure is running in the mid 90s to 105. His pulses in the low 60s to 70s. He has been afebrile. Intake and output shows that he has been taking some oral intake. His urine output yesterday was 1850. He has one bowel movement recorded early this morning which was reported to be soft and a moderate quantity. PHYSICAL EXAMINATION: The patient is lying quietly in the hospital bed. He is alert and oriented and greets me warmly. He reports he still has some mild abdominal discomfort. He reports that physical therapy will be in tomorrow to work with him as he feels quite weak. Abdomen is still full and he has some mild tenderness in the right side of the abdomen in particular. Laboratory studies show that his white count is down to 10 today with a hemoglobin of 9 and hematocrit and a platelet count of 156,000. His chemistry profile is further improved. The potassium is slightly low at 3.3 but the BUN is down to 40 with a creatinine of one. His PTT is 74.5 early this afternoon. The patient's urine culture from the is growing Pseudomonas aeruginosa. His GI panel from the is negative. IMPRESSION: The patient appears to be making appropriate progress. His white count has returned to normal. He is on appropriate antibiotic therapy. His fecal impaction is being addressed with laxatives and enemas. RECOMMENDATIONS: The patient still has no indications for any surgical intervention. I will follow at a distance at this point and plan on checking in the next couple of days to see how things have transpired. JUAN
[2018-12-26 20:00] VITALS: BP 100/56
[2018-12-26] MEDS: SENNA 8.6 MG TAB (SENOKOT) PO SCH (20:34)
[2018-12-26] MEDS: TAMSULOSIN 0.4 MG CAP PO SCH (20:35)
[2018-12-26] MEDS: SODIUM CHLORIDE 5% OPHTH OINT 3.5 GM OD SCH (20:36)
[2018-12-26] MEDS: SOD CHLORIDE OD SCH (20:36)
[2018-12-26] MEDS: LATANOPROST 0.005% OPHTH SOLN 2.5 ML OD SCH (20:36)
[2018-12-26 23:42] VITALS: BP 110/64
[2018-12-27 03:46] VITALS: BP 111/64
[2018-12-27] MEDS: PIPERACILLIN/TAZOBACTAM SOD 2.25 GM in D5W MINI-BAG PLUS 50 ML IV SCH ×3 (05:02→21:41)
[2018-12-27 05:14] LABS: HEMATOCRIT 30.5 % (42.0-52.0); HEMOGLOBIN 9.6 g/dl (13.5-17.5); MEAN CORPUSCULAR HEMOGLOBIN 27.7 pg (27.0-33.0); MEAN CORPUSCULAR HGB CONC 31.5 g/dl (32.0-36.5); MEAN CORPUSCULAR VOLUME 87.9 fl (80.0-96.0); PLATELET COUNT, AUTOMATED 137 10^3/uL (150-450); RED BLOOD COUNT 3.47 10^6/uL (4.30-6.10)
[2018-12-27 05:26] LABS: INR 1.23; PROTHROMBIN TIME 15.7 SECONDS (12.1-14.4)
[2018-12-27 05:27] LABS: PARTIAL THROMBOPLASTIN TIME 68.3 SECONDS (25.4-37.6)
[2018-12-27 05:40] LABS: BLOOD UREA NITROGEN 24 MG/DL (7-18); CALCIUM LEVEL 7.1 MG/DL (8.8-10.2); CARBON DIOXIDE LEVEL 24 MEQ/L (21-32); CHLORIDE LEVEL 112 MEQ/L (98-107); CREATININE FOR GFR 0.75 MG/DL (0.70-1.30); GLOMERULAR FILTRATION RATE > 60.0 (>35); GLUCOSE, FASTING 110 MG/DL (70-100); POTASSIUM SERUM 3.6 MEQ/L (3.5-5.1); SODIUM LEVEL 142 MEQ/L (136-145)
[2018-12-27] MEDS: HEPARIN DRIP 25,000 UNITS in APPROPRIATE DILUENT 1 EA IV SCH ×2 (06:23→20:18)
[2018-12-27 08:00] VITALS: BP 113/66
[2018-12-27] MEDS: METOPROLOL TART 25 MG TABLET PO SCH ×2 (09:00→21:00)
[2018-12-27] MEDS: VITAMIN D 1,000 INTERNATIONAL UNITS TABLET PO SCH (09:19)
[2018-12-27] MEDS: DULoxetine 20 MG CAP (CYMBALTA) PO SCH ×2 (09:19→21:37)
[2018-12-27] MEDS: PANTOPRAZOLE 40MG TAB (PROTONIX) PO SCH (09:20)
[2018-12-27] MEDS: PYRIDOXINE 50 MG TAB PO SCH (09:20)
[2018-12-27] MEDS: PREGABALIN 75 MG CAP(LYRICA) PO SCH ×2 (09:20→21:37)
[2018-12-27 12:00] VITALS: BP 112/68
--- NOTE | 2018-12-27 15:10 | IPNPDOC ---
Subjective Date Seen The patient was seen on 12/27/18. Subjective Chief Complaint/HPI Patient seen and examined at the bedside. Reports that he has been tolerating a by mouth diet without any acute complaint. Reports that his nause a/vomiting/abdominal pain have resolved. He has yet to work with physical therapy but states that he will do so today. Objective Physical Examination General Exam: Positive: Alert, Cooperative, No Acute Distress ENT Exam: Positive: Atraumatic, Mucous membr. moist/pink Chest Exam: Positive: Clear to auscultation, Normal air movement Heart Exam: Positive: Rate Normal, Normal S1, Normal S2 Abdomen Exam: Positive: Soft; Negative: Tenderness Extremity Exam: Negative: Tenderness, Swelling Psych Exam: Positive: Oriented x 3 Assessment /Plan Plan/VTE VTE Prophylaxis Ordered?: Yes Plan Sepsis possibly 2/2 Underlying UTI in a patient with a Chronic Dale Catheter and recurrent UTI's UA noted, Urine culture positive for pseudomonas Vanco D/C'd and Zosyn continued (fluoroquinolone allergy) Blood pressure improved following IVF Hydration We will cont to monitor Abd Pain likely 2/2 Fecal Impaction, less likely Ischemic Colon Cont bowel care regimen which has helped the patient have multiple BMs since admission Tolerating diet, abd resolved Advance diet as tolerated Lactic acidosis likely 2/2 Above, resolved Improved following IV fluid hydration Acute kidney injury superimposed on chronic kidney disease stage III, resolved History of atrial fibrillation s/p PPM Metoprolol ordered with holding parameters We will hold the patient's eliquis at this time, should he possibly require surgical intervention during this hospitalization Heparin gtt ordered--We will transition back to PO NOAC if the patient remains stable in the next 24-48hrs Metabolic encephalopathy 2/2 UTI, resolved BPH Continue Flomax GERD Continue PPI Anxiety/depression Continue duloxetine, Lyrica DVT prophylaxis Heparin gtt Dispo--pending clinical improvement. PT ordered for functional optimization. VS, I&O, 24H, Fishbone Vital Signs/I&O Vital Signs Date Time Temp Pulse Resp B/P (MAP) Pulse Ox O2 Delivery O2 Flow Rate FiO2 12/27/18 12:00 98.0 60 20 112/68 (83) 94 12/25/18 01:30 Room Air I&O- Last 24 Hours up to 6 AM 12/27/18 06:00 Intake Total 1070 ml Output Total 1900 ml Balance -830 ml Laboratory Data 24H LABS Laboratory Tests 2 12/26/18 19:54: Activated Partial Thromboplast Time 98.0H 12/27/18 04:56: Activated Partial Thromboplast Time 68.3H, Nucleated Red Blood Cells % (auto) 0.0, Prothrombin Time 15.7H, Prothromb Time International Ratio 1.23, Anion Gap 6L, Glomerular Filtration Rate > 60.0, Blood Urea Nitrogen 24H, Creatinine 0.75, Sodium Level 142, Potassium Level 3.6, Chloride Level 112H, Carbon Dioxide Level 24, Calcium Level 7.1L, Magnesium Level 2.0 12/27/18 12:18: Activated Partial Thromboplast Time 81.0H CBC/BMP Laboratory Tests 12/27/18 04:56 Red Blood Count 3.47 L, Mean Corpuscular Volume 87.9, Mean Corpuscular Hemoglobin 27.7, Mean Corpuscular Hemoglobin Concent 31.5 L, Red Cell Distribution Width 17.3 H, Calcium Level 7.1 L Microbiology Microbiology 12/24/18 Blood Culture - Preliminary, Resulted No Growth after 48 hours. All Specime... 12/24/18 Blood Culture - Preliminary, Resulted No Growth after 72 hours. All specime... 12/27/18 Stool Occult Blood ([facility]) - Final, Complete 12/25/18 Stool Occult Blood (GARY) - Final, Complete 12/25/18 Gastrointestinal Tract Panel (PCR) - Final, Complete 12/25/18 Respiratory Virus Panel (PCR) ([facility]) - Final, Complete 12/24/18 Urine Culture - Final, Complete Pseudomonas Aeruginosa DANY GAMING MD Dec 27, 2018 15:10
[2018-12-27 16:00] VITALS: BP 122/66
[2018-12-27 20:00] VITALS: BP 129/63
[2018-12-27] MEDS: SENNA 8.6 MG TAB (SENOKOT) PO SCH (21:37)
[2018-12-27] MEDS: TAMSULOSIN 0.4 MG CAP PO SCH (21:37)
[2018-12-27] MEDS: SOD CHLORIDE OD SCH (21:41)
[2018-12-27] MEDS: LATANOPROST 0.005% OPHTH SOLN 2.5 ML OD SCH (21:41)
[2018-12-27] MEDS: SODIUM CHLORIDE 5% OPHTH OINT 3.5 GM OD SCH (21:41)
[2018-12-27 23:59] VITALS: BP 107/60
[2018-12-28 04:00] VITALS: BP 103/59
[2018-12-28] MEDS: PIPERACILLIN/TAZOBACTAM SOD 2.25 GM in D5W MINI-BAG PLUS 50 ML IV SCH ×3 (04:36→20:20)
[2018-12-28 06:38] LABS: HEMATOCRIT 30.1 % (42.0-52.0); HEMOGLOBIN 9.4 g/dl (13.5-17.5); MEAN CORPUSCULAR HEMOGLOBIN 27.5 pg (27.0-33.0); MEAN CORPUSCULAR HGB CONC 31.2 g/dl (32.0-36.5); PLATELET COUNT, AUTOMATED 131 10^3/uL (150-450); RED BLOOD COUNT 3.42 10^6/uL (4.30-6.10); WHITE BLOOD COUNT 6.9 10^3/uL (4.0-10.0)
[2018-12-28 06:48] LABS: INR 1.25; PROTHROMBIN TIME 15.9 SECONDS (12.1-14.4)
[2018-12-28 06:55] LABS: BLOOD UREA NITROGEN 17 MG/DL (7-18); CALCIUM LEVEL 7.6 MG/DL (8.8-10.2); CARBON DIOXIDE LEVEL 26 MEQ/L (21-32); CHLORIDE LEVEL 109 MEQ/L (98-107); GLOMERULAR FILTRATION RATE > 60.0 (>35); GLUCOSE, FASTING 123 MG/DL (70-100); POTASSIUM SERUM 3.5 MEQ/L (3.5-5.1); SODIUM LEVEL 142 MEQ/L (136-145)
[2018-12-28 08:00] VITALS: BP 114/65
[2018-12-28] MEDS: VITAMIN D 1,000 INTERNATIONAL UNITS TABLET PO SCH (09:15)
[2018-12-28] MEDS: DULoxetine 20 MG CAP (CYMBALTA) PO SCH ×2 (09:16→20:20)
[2018-12-28] MEDS: PANTOPRAZOLE 40MG TAB (PROTONIX) PO SCH (09:16)
[2018-12-28] MEDS: PREGABALIN 75 MG CAP(LYRICA) PO SCH ×2 (09:16→20:21)
[2018-12-28] MEDS: PYRIDOXINE 50 MG TAB PO SCH (09:16)
[2018-12-28] MEDS: METOPROLOL TART 25 MG TABLET PO SCH ×2 (09:19→20:23)
[2018-12-28 12:00] VITALS: BP 114/63
--- NOTE | 2018-12-28 14:01 | IPNPDOC ---
Subjective Date Seen The patient was seen on 12/28/18. Subjective Chief Complaint/HPI Patient seen and examined at the bedside. No acute overnight events noted. Objective Physical Examination General Exam: Positive: Alert, Cooperative, No Acute Distress ENT Exam: Positive: Atraumatic, Mucous membr. moist/pink Chest Exam: Positive: Clear to auscultation, Normal air movement Heart Exam: Positive: Rate Normal, Normal S1, Normal S2 Abdomen Exam: Positive: Soft; Negative: Tenderness Extremity Exam: Negative: Tenderness, Swelling Psych Exam: Positive: Oriented x 3 Assessment /Plan Plan/VTE VTE Prophylaxis Ordered?: Yes Plan Sepsis possibly 2/2 Underlying UTI in a patient with a Chronic Dale Catheter and recurrent UTI's UA noted, Urine culture positive for pseudomonas Vanco D/C'd and Zosyn continued (fluoroquinolone allergy) Blood pressure improved following IVF Hydration We will cont to monitor Abd Pain likely 2/2 Fecal Impaction, less likely Ischemic Colon Cont bowel care regimen which has helped the patient have multiple BMs since admission Tolerating diet, abd resolved Advance diet as tolerated Lactic acidosis likely 2/2 Above, resolved Improved following IV fluid hydration Acute kidney injury superimposed on chronic kidney disease stage III, resolved History of atrial fibrillation s/p PPM Metoprolol ordered with holding parameters We will hold the patient's eliquis at this time, should he possibly require surgical intervention during this hospitalization Heparin gtt ordered--We will transition back to PO NOAC if the patient remains stable in the next 24hrs Metabolic encephalopathy 2/2 UTI, resolved BPH Continue Flomax GERD Continue PPI Anxiety/depression Continue duloxetine, Lyrica DVT prophylaxis Heparin gtt Dispo--pending clinical improvement. PT ordered for functional optimization. VS, I&O, 24H, [facility] Vital Signs/I&O Vital Signs Date Time Temp Pulse Resp B/P (MAP) Pulse Ox O2 Delivery O2 Flow Rate FiO2 12/28/18 09:19 72 114/65 12/28/18 08:00 97.9 18 97 12/25/18 01:30 Room Air I&O- Last 24 Hours up to 6 AM 12/28/18 05:59 Intake Total 530 ml Output Total 850 ml Balance -320 ml Laboratory Data 24H LABS Laboratory Tests 2 12/27/18 18:51: Activated Partial Thromboplast Time 83.1H 12/28/18 06:08: Activated Partial Thromboplast Time 93.0H, Nucleated Red Blood Cells % (auto) 0.0, Prothrombin Time 15.9H, Prothromb Time International Ratio 1.25, Anion Gap 7L, Glomerular Filtration Rate > 60.0, Blood Urea Nitrogen 17, Creatinine 0.80, Sodium Level 142, Potassium Level 3.5, Chloride Level 109H, Carbon Dioxide Level 26, Calcium Level 7.6L, Magnesium Level 2.0 CBC/BMP Laboratory Tests 12/28/18 06:08 Red Blood Count 3.42 L, Mean Corpuscular Volume 88.0, Mean Corpuscular Hemoglobin 27.5, Mean Corpuscular Hemoglobin Concent 31.2 L, Red Cell Distribution Width 17.4 H, Calcium Level 7.6 L Microbiology Microbiology 12/24/18 Blood Culture - Preliminary, Resulted No Growth after 72 hours. All specime... 12/24/18 Blood Culture - Preliminary, Resulted No Growth after 72 hours. All specime... 12/27/18 Stool Occult Blood (GARY) - Final, Complete 12/25/18 Stool Occult Blood (GARY) - Final, Complete 12/25/18 Gastrointestinal Tract Panel (PCR) - Final, Complete 12/25/18 Respiratory Virus Panel (PCR) ([facility]) - Final, Complete 12/24/18 Urine Culture - Final, Complete Pseudomonas Aeruginosa DANY GAMING MD Dec 28, 2018 14:01
[2018-12-28 16:00] VITALS: BP 118/65
[2018-12-28] MEDS: HEPARIN DRIP 25,000 UNITS in APPROPRIATE DILUENT 1 EA IV SCH (17:38)
[2018-12-28 20:00] VITALS: BP 108/59
[2018-12-28] MEDS: SENNA 8.6 MG TAB (SENOKOT) PO SCH (20:21)
[2018-12-28] MEDS: TAMSULOSIN 0.4 MG CAP PO SCH (20:21)
[2018-12-28] MEDS: SOD CHLORIDE OD SCH (20:24)
[2018-12-28] MEDS: LATANOPROST 0.005% OPHTH SOLN 2.5 ML OD SCH (20:25)
[2018-12-28] MEDS: SODIUM CHLORIDE 5% OPHTH OINT 3.5 GM OD SCH (20:27)
[2018-12-29] VITALS: BP 102/58
[2018-12-29 04:00] VITALS: BP 106/58
[2018-12-29] MEDS: PIPERACILLIN/TAZOBACTAM SOD 2.25 GM in D5W MINI-BAG PLUS 50 ML IV SCH ×3 (05:59→20:35)
[2018-12-29 06:09] LABS: HEMATOCRIT 30.1 % (42.0-52.0); HEMOGLOBIN 9.2 g/dl (13.5-17.5); MEAN CORPUSCULAR HEMOGLOBIN 27.3 pg (27.0-33.0); MEAN CORPUSCULAR HGB CONC 30.6 g/dl (32.0-36.5); MEAN CORPUSCULAR VOLUME 89.3 fl (80.0-96.0); PLATELET COUNT, AUTOMATED 127 10^3/uL (150-450); RED BLOOD COUNT 3.37 10^6/uL (4.30-6.10); WHITE BLOOD COUNT 6.8 10^3/uL (4.0-10.0)
[2018-12-29 06:16] LABS: INR 1.15; PROTHROMBIN TIME 14.9 SECONDS (12.1-14.4)
[2018-12-29 06:18] LABS: PARTIAL THROMBOPLASTIN TIME 97.7 SECONDS (25.4-37.6)
[2018-12-29 06:26] LABS: BLOOD UREA NITROGEN 13 MG/DL (7-18); CALCIUM LEVEL 7.4 MG/DL (8.8-10.2); CARBON DIOXIDE LEVEL 28 MEQ/L (21-32); CHLORIDE LEVEL 108 MEQ/L (98-107); CREATININE FOR GFR 0.83 MG/DL (0.70-1.30); GLOMERULAR FILTRATION RATE > 60.0 (>35); GLUCOSE, FASTING 107 MG/DL (70-100); MAGNESIUM LEVEL 1.8 MG/DL (1.8-2.4); POTASSIUM SERUM 3.6 MEQ/L (3.5-5.1); SODIUM LEVEL 142 MEQ/L (136-145)
[2018-12-29 08:00] VITALS: BP 102/59
[2018-12-29] MEDS: METOPROLOL TART 25 MG TABLET PO SCH ×2 (09:00→20:05)
[2018-12-29] MEDS: PREGABALIN 75 MG CAP(LYRICA) PO SCH ×2 (09:02→20:36)
[2018-12-29] MEDS: PYRIDOXINE 50 MG TAB PO SCH (09:02)
[2018-12-29] MEDS: APIXABAN 5 MG TAB (ELIQUIS) PO SCH ×2 (09:02→20:36)
[2018-12-29] MEDS: VITAMIN D 1,000 INTERNATIONAL UNITS TABLET PO SCH (09:02)
[2018-12-29] MEDS: PANTOPRAZOLE 40MG TAB (PROTONIX) PO SCH (09:03)
[2018-12-29] MEDS: DULoxetine 20 MG CAP (CYMBALTA) PO SCH ×2 (09:03→20:36)
[2018-12-29 09:36] LABS: PERCENT SATURATION 26.7 % (19.7-50.0)
[2018-12-29 10:25] LABS: FOLATE 14.4 NG/ML (>5.4)
[2018-12-29 12:00] VITALS: BP 126/62
[2018-12-29 16:00] VITALS: BP 112/55
[2018-12-29 20:00] VITALS: BP 120/57
[2018-12-29] MEDS: COMBIGAN EYE DROPS (PATIENT'S OWN MED) OD SCH (20:36)
[2018-12-29] MEDS: TAMSULOSIN 0.4 MG CAP PO SCH (20:36)
[2018-12-29] MEDS: SENNA 8.6 MG TAB (SENOKOT) PO SCH (20:36)
[2018-12-29] MEDS: SOD CHLORIDE OD SCH (20:37)
[2018-12-29] MEDS: LATANOPROST 0.005% OPHTH SOLN 2.5 ML OD SCH (20:37)
[2018-12-29] MEDS: SODIUM CHLORIDE 5% OPHTH OINT 3.5 GM OD SCH (20:38)
[2018-12-30] VITALS: BP 113/71
--- NOTE | 2018-12-30 00:41 | IPNPDOC ---
Subjective Date Seen The patient was seen on 12/29/18. Subjective Chief Complaint/HPI Continues to have diarrhea , with negative GI panel . This is probably resolving fecal impaction and related to antibiotics. Has been working with PT. Mobility has been improving. Objective Physical Examination General Exam: Positive: Alert, Cooperative, No Acute Distress ENT Exam: Positive: Atraumatic, Mucous membr. moist/pink Chest Exam: Positive: Clear to auscultation, Normal air movement Heart Exam: Positive: Rate Normal, Normal S1, Normal S2 Abdomen Exam: Positive: Soft; Negative: Tenderness Extremity Exam: Negative: Tenderness, Swelling Psych Exam: Positive: Oriented x 3 Assessment /Plan Assessment Sepsis possibly 2/2 Underlying UTI in a patient with a Chronic Dale Catheter and recurrent UTI's UA noted, Urine culture positive for pseudomonas Vanco D/C'd and Zosyn continued (fluoroquinolone allergy) Blood pressure improved following IVF Hydration We will cont to monitor Abd Pain 2/2 Fecal Impaction Cont bowel care regimen which has helped the patient have multiple BMs since admission No surgical intervension needed. Tolerating diet, abd resolved Lactic acidosis likely 2/2 Above, resolved Improved following IV fluid hydration Acute kidney injury superimposed on chronic kidney disease stage III, resolved History of atrial fibrillation s/p PPM Metoprolol ordered with holding parameters No surgical intenvention will be needed this admission restarted eliquis, heparin gtt stoppedl Metabolic encephalopathy 2/2 UTI, resolved BPH Continue Flomax GERD Continue PPI Anxiety/depression Continue duloxetine, Lyrica DVT prophylaxis Heparin gtt Dispo--pending clinical improvement. PT ordered for functional optimization. Plan/VTE VTE Prophylaxis Ordered?: Yes VS, I&O, 24H, [facility] Vital Signs/I&O Vital Signs Date Time Temp Pulse Resp B/P (MAP) Pulse Ox O2 Delivery O2 Flow Rate FiO2 12/29/18 20:05 60 120/57 12/29/18 20:00 97.2 16 99 12/25/18 01:30 Room Air I&O- Last 24 Hours up to 6 AM 12/30/18 06:00 Intake Total 485 ml Output Total 200 ml Balance 285 ml Laboratory Data 24H LABS Laboratory Tests 2 12/29/18 05:44: Nucleated Red Blood Cells % (auto) 0.0, Prothrombin Time 14.9H, Prothromb Time International Ratio 1.15, Activated Partial Thromboplast Time 97.7H, Anion Gap 6L, Glomerular Filtration Rate > 60.0, Blood Urea Nitrogen 13, Creatinine 0.83, Sodium Level 142, Potassium Level 3.6, Chloride Level 108H, Carbon Dioxide Level 28, Calcium Level 7.4L, Magnesium Level 1.8 12/29/18 08:04: Iron Level 36L, Total Iron Binding Capacity 135L, Transferrin % Saturation 26.7, Ferritin 407H, Vitamin B12 Level 674, Folate 14.4 CBC/BMP Laboratory Tests 12/29/18 05:44 Red Blood Count 3.37 L, Mean Corpuscular Volume 89.3, Mean Corpuscular He moglobin 27.3, Mean Corpuscular Hemoglobin Concent 30.6 L, Red Cell Distribution Width 17.9 H, Calcium Level 7.4 L Microbiology Microbiology 12/24/18 Blood Culture - Final, Complete NO GROWTH AFTER 5 DAYS 12/24/18 Blood Culture - Final, Complete NO GROWTH AFTER 5 DAYS 12/27/18 Stool Occult Blood (GARY) - Final, Complete 12/25/18 Stool Occult Blood (GARY) - Final, Complete 12/25/18 Gastrointestinal Tract Panel (PCR) - Final, Complete 12/25/18 Respiratory Virus Panel (PCR) (GARY) - Final, Complete 12/24/18 Urine Culture - Final, Complete Pseudomonas Aeruginosa SAMANTHA RAMOS MD Dec 30, 2018 00:41
[2018-12-30 04:00] VITALS: BP 114/57
[2018-12-30 05:02] LABS: HEMATOCRIT 31.2 % (42.0-52.0); HEMOGLOBIN 9.7 g/dl (13.5-17.5); MEAN CORPUSCULAR HGB CONC 31.1 g/dl (32.0-36.5); MEAN CORPUSCULAR VOLUME 89.9 fl (80.0-96.0); PLATELET COUNT, AUTOMATED 128 10^3/uL (150-450); RED BLOOD COUNT 3.47 10^6/uL (4.30-6.10); WHITE BLOOD COUNT 6.8 10^3/uL (4.0-10.0)
[2018-12-30 05:32] LABS: BLOOD UREA NITROGEN 12 MG/DL (7-18); CALCIUM LEVEL 7.4 MG/DL (8.8-10.2); CARBON DIOXIDE LEVEL 29 MEQ/L (21-32); CHLORIDE LEVEL 108 MEQ/L (98-107); CREATININE FOR GFR 0.81 MG/DL (0.70-1.30); GLOMERULAR FILTRATION RATE > 60.0 (>35); GLUCOSE, FASTING 95 MG/DL (70-100); MAGNESIUM LEVEL 1.8 MG/DL (1.8-2.4); POTASSIUM SERUM 3.9 MEQ/L (3.5-5.1); SODIUM LEVEL 142 MEQ/L (136-145)
[2018-12-30] MEDS: PIPERACILLIN/TAZOBACTAM SOD 2.25 GM in D5W MINI-BAG PLUS 50 ML IV SCH ×3 (06:30→21:22)
[2018-12-30 08:00] VITALS: BP 104/55
[2018-12-30] MEDS: METOPROLOL TART 25 MG TABLET PO SCH ×2 (08:31→21:21)
[2018-12-30] MEDS: PANTOPRAZOLE 40MG TAB (PROTONIX) PO SCH (08:39)
[2018-12-30] MEDS: DULoxetine 20 MG CAP (CYMBALTA) PO SCH ×2 (08:39→21:21)
[2018-12-30] MEDS: PYRIDOXINE 50 MG TAB PO SCH (08:39)
[2018-12-30] MEDS: VITAMIN D 1,000 INTERNATIONAL UNITS TABLET PO SCH (08:39)
[2018-12-30] MEDS: PREGABALIN 75 MG CAP(LYRICA) PO SCH ×2 (08:39→21:21)
[2018-12-30] MEDS: APIXABAN 5 MG TAB (ELIQUIS) PO SCH ×2 (08:39→21:21)
[2018-12-30] MEDS: COMBIGAN EYE DROPS (PATIENT'S OWN MED) OD SCH ×2 (08:40→21:22)
[2018-12-30 12:00] VITALS: BP 110/58
--- NOTE | 2018-12-30 18:40 | IPNPDOC ---
Subjective Date Seen The patient was seen on 12/30/18. Subjective Chief Complaint/HPI Does not have any complaints today. Has been cleared by PT. No fever or chills, no abdominal pain , nausea or vomiting or diarrhea. Has been having good bowel movements 2 to 3 times a day. Objective Physical Examination General Exam: Positive: Alert, Cooperative, No Acute Distress Eye Exam: Positive: PERRLA ENT Exam: Positive: Atraumatic, Mucous membr. moist/pink Chest Exam: Positive: Clear to auscultation, Normal air movement Heart Exam: Positive: Rate Normal, Normal S1, Normal S2 Abdomen Exam: Positive: Soft; Negative: Tenderness Extremity Exam: Negative: Clubbing, Tenderness, Swelling Psych Exam: Positive: Oriented x 3 Assessment /Plan Assessment This is an 83 yo male presented to the ED for diffuse abdominal pain 01/11 which has been intermittent for the past few days. Per patient's at bedside, he has also been having intermittent confusion. Patient wasn't able to give much hx so most of the history was taken from her. She stated that he has been constipated for the few days now, he went to the bathroom multiple times but was unable to pass stool; however she noticed for the past 2 days he has been going on himself, but they couldn't say if it was diarrhea or not, but didn't seem to be much. Fecal Impaction and colonic obstruction. managed conservatively. Cont bowel care regimen which has helped the patient have multiple BMs since admission No surgical intervention needed. Tolerating diet, abd resolved Sepsis possibly 2/2 Underlying UTI in a patient with a Chronic Dale Catheter and recurrent UTI's UA noted, Urine culture positive for pseudomonas Vanco D/C'd and Zosyn continued (fluoroquinolone allergy) Blood pressure improved following IVF Hydration We will cont to monitor Lactic acidosis likely 2/2 Above, resolved Improved following IV fluid hydration Acute kidney injury superimposed on chronic kidney disease stage III, resolved History of atrial fibrillation s/p PPM Metoprolol ordered with holding parameters No surgical intenvention will be needed this admission restarted eliquis, heparin gtt stoppedl Metabolic encephalopathy 2/2 UTI, resolved BPH Continue Flomax GERD Continue PPI Anxiety/depression Continue duloxetine, Lyrica DVT prophylaxis Heparin gtt Dispo--pending clinical improvement. PT ordered for functional optimization. Plan/VTE VTE Prophylaxis Ordered?: Yes VS, I&O, 24H, [place] Vital Signs/I&O Vital Signs Date Time Temp Pulse Resp B/P (MAP) Pulse Ox O2 Delivery O2 Flow Rate FiO2 12/30/18 12:00 97.9 62 16 110/58 (75) 99 12/25/18 01:30 Room Air I&O- Last 24 Hours up to 6 AM 12/30/18 06:00 Intake Total 485 ml Output Total 450 ml Balance 35 ml Laboratory Data 24H LABS Laboratory Tests 2 12/30/18 04:50: Nucleated Red Blood Cells % (auto) 0.0, Anion Gap 5L, Glomerular Filtration Rate > 60.0, Blood Urea Nitrogen 12, Creatinine 0.81, Sodium Level 142, Potassium Level 3.9, Chloride Level 108H, Carbon Dioxide Level 29, Calcium Level 7.4L, Magnesium Level 1.8 CBC/BMP Laboratory Tests 12/30/18 04:50 Red Blood Count 3.47 L, Mean Corpuscular Volume 89.9, Mean Corpuscular Hemoglobin 28.0, Mean Corpuscular Hemoglobin Concent 31.1 L, Red Cell Distribution Width 18.4 H, Calcium Level 7.4 L Microbiology Microbiology 12/24/18 Blood Culture - Final, Complete NO GROWTH AFTER 5 DAYS 12/24/18 Blood Culture - Final, Complete NO GROWTH AFTER 5 DAYS 12/27/18 Stool Occult Blood (GARY) - Final, Complete 12/25/18 Stool Occult Blood (GARY) - Final, Complete 12/25/18 Gastrointestinal Tract Panel (PCR) - Final, Complete 12/25/18 Respiratory Virus Panel (PCR) (GARY) - Final, Complete 12/24/18 Urine Culture - Final, Complete Pseudomonas Aeruginosa SAMANTHA RAMOS MD Dec 30, 2018 18:40
[2018-12-30 18:45] VITALS: BP 138/63
[2018-12-30] MEDS: SOD CHLORIDE OD SCH (21:00)
[2018-12-30] MEDS: SENNA 8.6 MG TAB (SENOKOT) PO SCH (21:21)
[2018-12-30] MEDS: TAMSULOSIN 0.4 MG CAP PO SCH (21:21)
[2018-12-30] MEDS: SODIUM CHLORIDE 5% OPHTH OINT 3.5 GM OD SCH (21:22)
[2018-12-30] MEDS: LATANOPROST 0.005% OPHTH SOLN 2.5 ML OD SCH (21:22)
[2018-12-30 22:00] VITALS: BP 109/63
[2018-12-31 06:00] VITALS: BP 106/59
[2018-12-31] MEDS: PIPERACILLIN/TAZOBACTAM SOD 2.25 GM in D5W MINI-BAG PLUS 50 ML IV SCH ×3 (06:25→20:34)
[2018-12-31 07:23] LABS: HEMATOCRIT 31.7 % (42.0-52.0); HEMOGLOBIN 9.7 g/dl (13.5-17.5); MEAN CORPUSCULAR HEMOGLOBIN 27.6 pg (27.0-33.0); MEAN CORPUSCULAR HGB CONC 30.6 g/dl (32.0-36.5); MEAN CORPUSCULAR VOLUME 90.3 fl (80.0-96.0); PLATELET COUNT, AUTOMATED 149 10^3/uL (150-450); RED BLOOD COUNT 3.51 10^6/uL (4.30-6.10); WHITE BLOOD COUNT 8.3 10^3/uL (4.0-10.0)
[2018-12-31 07:45] LABS: BLOOD UREA NITROGEN 13 MG/DL (7-18); CALCIUM LEVEL 7.5 MG/DL (8.8-10.2); CARBON DIOXIDE LEVEL 30 MEQ/L (21-32); CHLORIDE LEVEL 106 MEQ/L (98-107); CREATININE FOR GFR 0.78 MG/DL (0.70-1.30); GLOMERULAR FILTRATION RATE > 60.0 (>35); GLUCOSE, FASTING 82 MG/DL (70-100); POTASSIUM SERUM 4.2 MEQ/L (3.5-5.1); SODIUM LEVEL 140 MEQ/L (136-145)
[2018-12-31] MEDS: PREGABALIN 75 MG CAP(LYRICA) PO SCH ×2 (08:46→20:34)
[2018-12-31] MEDS: DULoxetine 20 MG CAP (CYMBALTA) PO SCH ×2 (08:47→20:34)
[2018-12-31] MEDS: PANTOPRAZOLE 40MG TAB (PROTONIX) PO SCH (08:47)
[2018-12-31] MEDS: METOPROLOL TART 25 MG TABLET PO SCH ×2 (08:47→20:35)
[2018-12-31] MEDS: VITAMIN D 1,000 INTERNATIONAL UNITS TABLET PO SCH (08:47)
[2018-12-31] MEDS: PYRIDOXINE 50 MG TAB PO SCH (08:47)
[2018-12-31] MEDS: APIXABAN 5 MG TAB (ELIQUIS) PO SCH ×2 (08:47→20:34)
[2018-12-31] MEDS: COMBIGAN EYE DROPS (PATIENT'S OWN MED) OD SCH ×2 (08:50→20:36)
[2018-12-31] MEDS: ACETAMINOPHEN TAB 650MG DOSE (2X325MG) PO PRN (10:48)
[2018-12-31 14:00] VITALS: BP 94/55
--- NOTE | 2018-12-31 14:38 | IPNPDOC ---
Subjective Date Seen The patient was seen on 12/31/18. Subjective Chief Complaint/HPI Complaining of abdominal cramps this morning. Says feels very weak today and has been having trouble walking. Objective Physical Examination General Exam: Positive: Alert, Cooperative, No Acute Distress Eye Exam: Positive: PERRLA ENT Exam: Positive: Atraumatic, Mucous membr. moist/pink Chest Exam: Positive: Clear to auscultation, Normal air movement Heart Exam: Positive: Rate Normal, Normal S1, Normal S2 Abdomen Exam: Positive: Soft; Negative: Tenderness Extremity Exam: Negative: Clubbing, Tenderness, Swelling Psych Exam: Positive: Oriented x 3 Assessment /Plan Assessment This is an 83 yo male presented to the ED for diffuse abdominal pain 01/11 which has been intermittent for the past few days. Per patient's at bedside, he has also been having intermittent confusion. Patient wasn't able to give much hx so most of the history was taken from her. She stated that he has been constipated for the few days now, he went to the bathroom multiple times but was unable to pass stool; however she noticed for the past 2 days he has been going on himself, but they couldn't say if it was diarrhea or not, but didn't seem to be much. Fecal Impaction and colonic obstruction. managed conservatively. Cont bowel care regimen which has helped the patient have multiple BMs since admission No surgical intervention needed. Tolerating diet, abd resolved Sepsis possibly 2/2 Underlying UTI in a patient with a Chronic Dale Catheter and recurrent UTI's UA noted, Urine culture positive for pseudomonas Vanco D/C'd and Zosyn continued (fluoroquinolone allergy) Blood pressure improved following IVF Hydration We will cont to monitor Lactic acidosis likely 2/2 Above, resolved Improved following IV fluid hydration Acute kidney injury superimposed on chronic kidney disease stage III, resolved History of atrial fibrillation s/p PPM Metoprolol ordered with holding parameters No surgical intenvention will be needed this admission restarted eliquis, heparin gtt stoppedl Metabolic encephalopathy 2/2 UTI, resolved BPH Continue Flomax GERD Continue PPI Anxiety/depression Continue duloxetine, Lyrica DVT prophylaxis Heparin gtt Dispo--pending clinical improvement. PT ordered for functional optimization. Plan/VTE VTE Prophylaxis Ordered?: Yes VS, I&O, 24H, [facility] Vital Signs/I&O Vital Signs Date Time Temp Pulse Resp B/P (MAP) Pulse Ox O2 Delivery O2 Flow Rate FiO2 12/31/18 08:47 60 109/62 12/31/18 06:00 98.2 18 98 12/25/18 01:30 Room Air I&O- Last 24 Hours up to 6 AM 12/31/18 06:00 Intake Total 1360 ml Output Total 1600 ml Balance -240 ml Laboratory Data 24H LABS Laboratory Tests 2 12/31/18 06:18: Nucleated Red Blood Cells % (auto) 0.0, Anion Gap 4L, Glomerular Filtration Rate > 60.0, Blood Urea Nitrogen 13, Creatinine 0.78, Sodium Level 140, Potassium Level 4.2, Chloride Level 106, Carbon Dioxide Level 30, Calcium Level 7.5L, Magnesium Level 2.0 CBC/BMP Laboratory Tests 12/31/18 06:18 Red Blood Count 3.51 L, Mean Corpuscular Volume 90.3, Mean Corpuscular Hemoglobin 27.6, Mean Corpuscular Hemoglobin Concent 30.6 L, Red Cell Distribution Width 18.7 H, Calcium Level 7.5 L Microbiology Microbiology 12/24/18 Blood Culture - Final, Complete NO GROWTH AFTER 5 DAYS 12/24/18 Blood Culture - Final, Complete NO GROWTH AFTER 5 DAYS 12/27/18 Stool Occult Blood (GARY) - Final, Complete 12/25/18 Stool Occult Blood (GARY) - Final, Complete 12/25/18 Gastrointestinal Tract Panel (PCR) - Final, Complete 12/25/18 Respiratory Virus Panel (PCR) (GARY) - Final, Complete 12/24/18 Urine Culture - Final, Complete Pseudomonas Aeruginosa SAMANTHA RAMOS MD Dec 31, 2018 14:38
[2018-12-31] MEDS: TAMSULOSIN 0.4 MG CAP PO SCH (20:34)
[2018-12-31] MEDS: SODIUM CHLORIDE 5% OPHTH OINT 3.5 GM OD SCH (20:35)
[2018-12-31] MEDS: LATANOPROST 0.005% OPHTH SOLN 2.5 ML OD SCH (20:35)
[2018-12-31] MEDS: SENNA 8.6 MG TAB (SENOKOT) PO SCH (20:43)
[2018-12-31] MEDS: SOD CHLORIDE OD SCH (21:25)
[2018-12-31 22:00] VITALS: BP 126/67
[2019-01-01] MEDS: PIPERACILLIN/TAZOBACTAM SOD 2.25 GM in D5W MINI-BAG PLUS 50 ML IV SCH ×2 (04:44→13:04)
[2019-01-01 06:00] VITALS: BP 107/63
[2019-01-01 06:41] LABS: HEMOGLOBIN 10.2 g/dl (13.5-17.5); MEAN CORPUSCULAR HEMOGLOBIN 27.9 pg (27.0-33.0); MEAN CORPUSCULAR HGB CONC 30.9 g/dl (32.0-36.5); MEAN CORPUSCULAR VOLUME 90.2 fl (80.0-96.0); PLATELET COUNT, AUTOMATED 164 10^3/uL (150-450); RED BLOOD COUNT 3.66 10^6/uL (4.30-6.10); WHITE BLOOD COUNT 8.7 10^3/uL (4.0-10.0)
[2019-01-01 07:10] LABS: BLOOD UREA NITROGEN 15 MG/DL (7-18); CALCIUM LEVEL 7.3 MG/DL (8.8-10.2); CARBON DIOXIDE LEVEL 28 MEQ/L (21-32); CHLORIDE LEVEL 106 MEQ/L (98-107); CREATININE FOR GFR 0.84 MG/DL (0.70-1.30); GLOMERULAR FILTRATION RATE > 60.0 (>35); GLUCOSE, FASTING 89 MG/DL (70-100); MAGNESIUM LEVEL 1.9 MG/DL (1.8-2.4); SODIUM LEVEL 141 MEQ/L (136-145)
[2019-01-01] MEDS: DULoxetine 20 MG CAP (CYMBALTA) PO SCH ×2 (08:50→21:12)
[2019-01-01] MEDS: PANTOPRAZOLE 40MG TAB (PROTONIX) PO SCH (08:50)
[2019-01-01] MEDS: APIXABAN 5 MG TAB (ELIQUIS) PO SCH ×2 (08:50→21:12)
[2019-01-01] MEDS: PYRIDOXINE 50 MG TAB PO SCH (08:51)
[2019-01-01] MEDS: VITAMIN D 1,000 INTERNATIONAL UNITS TABLET PO SCH (08:51)
[2019-01-01] MEDS: PREGABALIN 75 MG CAP(LYRICA) PO SCH ×2 (08:52→21:12)
[2019-01-01] MEDS: METOPROLOL TART 25 MG TABLET PO SCH ×2 (08:52→21:13)
[2019-01-01] MEDS: COMBIGAN EYE DROPS (PATIENT'S OWN MED) OD SCH ×2 (08:53→21:13)
[2019-01-01 14:00] VITALS: BP 99/58
--- NOTE | 2019-01-01 14:18 | IPNPDOC ---
Subjective Date Seen The patient was seen on 01/01/19. Subjective Chief Complaint/HPI Pateint seen at bedside sitting up in a chair. Says has been having difficulty in getting up from chair and this morning need 2 person assist. He also feels his abdomen is still not right. Continues to have cramps and about 3 times a day of liquid foul smelling stools. His abdomen is making lots of noise which his can also hear . He also has fecal incontinence in between and his underpants are always soiled. Objective Physical Examination General Exam: Positive: Alert, Cooperative, No Acute Distress Eye Exam: Positive: PERRLA ENT Exam: Positive: Atraumatic, Mucous membr. moist/pink Chest Exam: Positive: Clear to auscultation, Normal air movement Heart Exam: Positive: Rate Normal, Normal S1, Normal S2 Abdomen Exam: Positive: Soft; Negative: Tenderness Extremity Exam: Negative: Clubbing, Tenderness, Swelling Psych Exam: Positive: Oriented x 3 Assessment /Plan Assessment This is an 83 yo male presented to the ED for diffuse abdominal pain 10 which has been intermittent for the past few days. Per patient's at bedside, he has also been having intermittent confusion. Patient wasn't able to give much hx so most of the history was taken from her. She stated that he has been constipat ed for the few days now, he went to the bathroom multiple times but was unable to pass stool; however she noticed for the past 2 days he has been going on himself, but they couldn't say if it was diarrhea or not, but didn't seem to be much. Fecal Impaction and colonic obstruction. managed conservatively. Cont bowel care regimen which has helped the patient have multiple BMs since admission However he continues to have abdominal cramps and liquid stools about 3 to 4 times a day. Tolerating diet Sepsis possibly 2/2 Underlying UTI in a patient with a Chronic Dale Catheter and recurrent UTI's UA noted, Urine culture positive for pseudomonas finished 7 days of Zosyn. 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 Metabolic encephalopathy 2/2 UTI, resolved BPH Continue Flomax GERD Continue PPI Anxiety/depression Continue duloxetine, Lyrica Bladder calculi seen in pelvic CT of 12/16/18 and also in 2018 however not seen in the CT from this admission DVT prophylaxis Heparin gtt Dispo--pending clinical improvement. PT ordered for functional optimization. Plan/VTE VTE Prophylaxis Ordered?: Yes VS, I&O, 24H, Fishbone Vital Signs/I&O Vital Signs Date Time Temp Pulse Resp B/P (MAP) Pulse Ox O2 Delivery O2 Flow Rate FiO2 01/01/19 08:52 65 107/63 01/01/19 06:00 97.4 18 96 I&O- Last 24 Hours up to 6 AM 01/01/19 06:00 Intake Total 880 ml Output Total 1450 ml Balance -570 ml Laboratory Data 24H LABS Laboratory Tests 2 01/01/19 06:25: Nucleated Red Blood Cells % (auto) 0.0, Anion Gap 7L, Glomerular Filtration Rate > 60.0, Blood Urea Nitrogen 15, Creatinine 0.84, Sodium Level 141, Potassium Level 4.0, Chloride Level 106, Carbon Dioxide Level 28, Calcium Level 7.3L, Magnesium Level 1.9 CBC/BMP Laboratory Tests 01/01/19 06:25 Red Blood Count 3.66 L, Mean Corpuscular Volume 90.2, Mean Corpuscular Hemoglobin 27.9, Mean Corpuscular Hemoglobin Concent 30.9 L, Red Cell Distribution Width 18.6 H, Calcium Level 7.3 L Microbiology Microbiology 12/24/18 Blood Culture - Final, Complete NO GROWTH AFTER 5 DAYS 12/24/18 Blood Culture - Final, Complete NO GROWTH AFTER 5 DAYS 12/27/18 Stool Occult Blood (GARY) - Final, Complete 12/25/18 Stool Occult Blood (GARY) - Final, Complete 12/25/18 Gastrointestinal Tract Panel (PCR) - Final, Complete 12/25/18 Respiratory Virus Panel (PCR) (GARY) - Final, Complete 12/24/18 Urine Culture - Final, Complete Pseudomonas Aeruginosa SAMANTHA RAMOS MD Jan 01, 2019 14:18
[2019-01-01] MEDS: GASTROGRAFIN SOLUTION 30ML PO SCH ×2 (14:42→15:17)
--- NOTE | 2019-01-01 16:33 | REP ---
Clinical: Follow up fecal impaction and colonic obstruction. Technique: Axial images from the lung bases to the pubic symphysis using oral contrast material with coronal and sagittal re-formations. Comparison: 12/24/2018. Findings: Moderate fecal stasis and constipation is again suggested but improved when compared to prior examination. Mucosal thickening of the rectosigmoid colon cannot be excluded and may warrant colonoscopy evaluation to evaluate for the possibility of underlying pathology. No bowel obstruction. The small bowel is unremarkable. Liver, spleen, pancreas and gallbladder are normal for noncontrast evaluation. Kidneys demonstrate stable bilateral nonobstructing calculi and small hypodensities suggesting cysts. Pelvis demonstrates multiple bladder calculi and Dale catheter in satisfactory position within the bladder. Prostate gland is upper limits of normal in size. No ascites. No adenopathy. Abdominal aorta without aneurysm. Surrounding musculoskeletal structures demonstrate extensive degenerative changes including multilevel compression deformities which appear relatively stable when compared to 09/12/2018. Lung bases demonstrate moderate right pleural effusion, small left pleural effusion and bibasilar atelectasis which are increased when compared to prior examination. Impression: 1. Continued moderate fecal stasis and constipation which is mildly improved when compared to prior examination. No bowel obstruction is appreciated. 2. Irregular mural thickening involving the rectosigmoid colon warrants followup colonoscopy evaluation to exclude pathology. 3. Pleural effusions and bibasilar atelectasis (right greater than left) which represent new findings as compared to 12/24/2018. 4. Further chronic changes as described above. Electronically Signed by Rommel Eli MD 01/01/2019 04:25 P
[2019-01-01] MEDS: TAMSULOSIN 0.4 MG CAP PO SCH (21:12)
[2019-01-01] MEDS: SENNA 8.6 MG TAB (SENOKOT) PO SCH (21:12)
[2019-01-01] MEDS: SODIUM CHLORIDE 5% OPHTH OINT 3.5 GM OD SCH (21:13)
[2019-01-01] MEDS: SOD CHLORIDE OD SCH (21:13)
[2019-01-01] MEDS: LATANOPROST 0.005% OPHTH SOLN 2.5 ML OD SCH (21:14)
[2019-01-01 22:00] VITALS: BP 111/68
[2019-01-02 06:00] VITALS: BP 108/61
[2019-01-02 06:35] LABS: HEMATOCRIT 31.3 % (42.0-52.0); HEMOGLOBIN 9.7 g/dl (13.5-17.5); MEAN CORPUSCULAR HEMOGLOBIN 27.7 pg (27.0-33.0); MEAN CORPUSCULAR VOLUME 89.4 fl (80.0-96.0); PLATELET COUNT, AUTOMATED 171 10^3/uL (150-450); WHITE BLOOD COUNT 8.3 10^3/uL (4.0-10.0)
[2019-01-02 07:00] LABS: BLOOD UREA NITROGEN 17 MG/DL (7-18); CALCIUM LEVEL 7.6 MG/DL (8.8-10.2); CARBON DIOXIDE LEVEL 31 MEQ/L (21-32); CHLORIDE LEVEL 106 MEQ/L (98-107); CREATININE FOR GFR 0.94 MG/DL (0.70-1.30); GLOMERULAR FILTRATION RATE > 60.0 (>35); GLUCOSE, FASTING 100 MG/DL (70-100); MAGNESIUM LEVEL 2.1 MG/DL (1.8-2.4); POTASSIUM SERUM 4.2 MEQ/L (3.5-5.1); SODIUM LEVEL 140 MEQ/L (136-145)
[2019-01-02] MEDS: PREGABALIN 75 MG CAP(LYRICA) PO SCH ×2 (08:24→20:50)
[2019-01-02] MEDS: PYRIDOXINE 50 MG TAB PO SCH (08:24)
[2019-01-02] MEDS: DULoxetine 20 MG CAP (CYMBALTA) PO SCH ×2 (08:24→20:50)
[2019-01-02] MEDS: APIXABAN 5 MG TAB (ELIQUIS) PO SCH (08:24)
[2019-01-02] MEDS: VITAMIN D 1,000 INTERNATIONAL UNITS TABLET PO SCH (08:24)
[2019-01-02] MEDS: PANTOPRAZOLE 40MG TAB (PROTONIX) PO SCH (08:24)
[2019-01-02] MEDS: METOPROLOL TART 25 MG TABLET PO SCH ×2 (08:28→20:51)
[2019-01-02] MEDS: COMBIGAN EYE DROPS (PATIENT'S OWN MED) OD SCH ×2 (08:29→20:51)
[2019-01-02] MEDS ORDERED: MOM 30ML SUSPENSION UDC PO ONE (13:30)
--- NOTE | 2019-01-02 13:30 | IPNPDOC ---
Subjective Date Seen The patient was seen on 01/02/19. Subjective Chief Complaint/HPI continues to have crampy abdominal pain and liquid stools several times a day. the stools are very foul smelling. No fever or chills, no chest pain or SOB. Today he feels stronger and is able to stand up by himself from the bed or chair. Objective Physical Examination General Exam: Positive: Alert, Cooperative, No Acute Distress Eye Exam: Positive: PERRLA ENT Exam: Positive: Atraumatic, Mucous membr. moist/pink Chest Exam: Positive: Clear to auscultation, Normal air movement Heart Exam: Positive: Rate Normal, Normal S1, Normal S2 Abdomen Exam: Positive: Soft; Negative: Tenderness Extremity Exam: Negative: Clubbing, Tenderness, Swelling Psych Exam: Positive: Oriented x 3 Assessment /Plan Assessment This is an 83 yo male presented to the ED for diffuse abdominal pain 01/11 which has been intermittent for the past few days. Per patient's at bedside, he has also been having intermittent confusion. Patient wasn't able to give much hx so most of the history was taken from her. She stated that he has been constipated for the few days now, he went to the bathroom multiple times but was unable to pass stool; however she noticed for the past 2 days he has been going on himself, but they couldn't say if it was diarrhea or not, but didn't seem to be much. Fecal Impaction and distal colonic obstruction. managed conservatively. Cont bowel care regimen which has helped the patient have multiple BMs since admission However he continues to have abdominal cramps and liquid stools about 3 to 4 gregoria es a day. Repeat CT abdomen an pelvis shows persistence of fecal statsis though less than before. there is an area of thickening at the recto-sigmoid junction. will consult Dr Morelos for possible colonoscopy. Sepsis possibly 2/2 Underlying UTI in a patient with a Chronic Dale Catheter and recurrent UTI's treated. UA noted, Urine culture positive for pseudomonas finished 7 days of Zosyn. 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 Metabolic encephalopathy 2/2 UTI, resolved BPH Continue Flomax GERD Continue PPI Anxiety/depression Continue duloxetine, Lyrica Bladder calculi seen in pelvic CT of 12/16/18 and also in 2018 however not seen in the CT from this admission DVT prophylaxis Heparin gtt Dispo--pending clinical improvement. PT ordered for functional optimization. Plan/VTE VTE Prophylaxis Ordered?: Yes VS, I&O, 24H, Fishbone Vital Signs/I&O Vital Signs Date Time Temp Pulse Resp B/P (MAP) Pulse Ox O2 Delivery O2 Flow Rate FiO2 01/02/19 08:28 62 105/55 01/02/19 06:00 97.3 18 97 I&O- Last 24 Hours up to 6 AM 01/02/19 05:59 Intake Total 1130 ml Output Total 1500 ml Balance -370 ml Laboratory Data 24H LABS Laboratory Tests 2 01/02/19 06:10: Nucleated Red Blood Cells % (auto) 0.0, Anion Gap 3L, Glomerular Filtration Rate > 60.0, Blood Urea Nitrogen 17, Creatinine 0.94, Sodium Level 140, Potassium Level 4.2, Chloride Level 106, Carbon Dioxide Level 31, Calcium Level 7.6L, Magnesium Level 2.1 CBC/BMP Laboratory Tests 01/02/19 06:10 Red Blood Count 3.50 L, Mean Corpuscular Volume 89.4, Mean Corpuscular Hemoglobin 27.7, Mean Corpuscular Hemoglobin Concent 31.0 L, Red Cell Distribution Width 18.9 H, Calcium Level 7.6 L Microbiology Microbiology 12/24/18 Blood Culture - Final, Complete NO GROWTH AFTER 5 DAYS 12/24/18 Blood Culture - Final, Complete NO GROWTH AFTER 5 DAYS 12/27/18 Stool Occult Blood (GARY) - Final, Complete 12/25/18 Stool Occult Blood (GARY) - Final, Complete 12/25/18 Gastrointestinal Tract Panel (PCR) - Final, Complete 12/25/18 Respiratory Virus Panel (PCR) (GARY) - Final, Complete 12/24/18 Urine Culture - Final, Complete Pseudomonas Aeruginosa SAMANTHA RAMOS MD Jan 02, 2019 13:30
[2019-01-02 14:00] VITALS: BP 110/61
[2019-01-02] MEDS: BISACODYL 5 MG TAB PO SCH (15:30)
[2019-01-02] MEDS: TAMSULOSIN 0.4 MG CAP PO SCH (20:50)
[2019-01-02] MEDS: SENNA 8.6 MG TAB (SENOKOT) PO SCH (20:50)
[2019-01-02] MEDS: SODIUM CHLORIDE 5% OPHTH OINT 3.5 GM OD SCH (20:51)
[2019-01-02] MEDS: SOD CHLORIDE OD SCH (20:51)
[2019-01-02] MEDS: LATANOPROST 0.005% OPHTH SOLN 2.5 ML OD SCH (20:51)
[2019-01-02 22:00] VITALS: BP 128/55
[2019-01-03 06:00] VITALS: BP 122/59
[2019-01-03] MEDS ORDERED: GOLYTELY SOLN 4000 ML BTL PO ONE (06:00)
--- NOTE | 2019-01-03 08:38 | IPNPDOC ---
Date Seen The patient was seen on 01/03/19. Progress Note Chief Complaint/HPI Due to sigmoid thickening, colonoscopy planned by Dr. Morelos today. not passed home safety evaluation. no fever or chills, no blood per rectum, improved abdominal discomfort. no nausea of vomiting. requesting his golytely shaken. Objective Physical Examination General Exam: Positive: Alert, Cooperative, No Acute Distress Eye Exam: Positive: PERRLA ENT Exam: Positive: Atraumatic, Mucous membr. moist/pink Chest Exam: Positive: Clear to auscultation, Normal air movement Heart Exam: Positive: Rate Normal, Normal S1, Normal S2 Abdomen Exam: Positive: Soft; Negative: Tenderness Extremity Exam: Negative: Clubbing, Tenderness, Swelling Psych Exam: Positive: Oriented x 3 Assessment /Plan Assessment This is an 83 yo male presented to the ED for diffuse abdominal pain 01/11 which has been intermittent for the past few days. Per patient's at bedside, he has also been having intermittent confusion. Patient wasn't able to give much hx so most of the history was taken from her. She stated that he has been c onstipated for the few days now, he went to the bathroom multiple times but was unable to pass stool; however she noticed for the past 2 days he has been going on himself, but they couldn't say if it was diarrhea or not, but didn't seem to be much. Fecal Impaction and distal colonic obstruction. managed conservatively. Cont bowel care regimen which has helped the patient have multiple BMs since admission However he continues to have abdominal cramps and liquid stools about 3 to 4 times a day. Repeat CT abdomen an pelvis shows persistence of fecal statsis though less than before. there is an area of thickening at the recto-sigmoid junction. consulted Dr Morelos for colonoscopy. Sepsis possibly 2/2 Underlying UTI in a patient with a Chronic Dale Catheter and recurrent UTI's treated. UA noted, Urine culture positive for pseudomonas finished 7 days of Zosyn. 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 Metabolic encephalopathy 2/2 UTI, resolved BPH Continue Flomax GERD Continue PPI Anxiety/depression Continue duloxetine, Lyrica Bladder calculi seen in pelvic CT of 3/15/19 and also in 2018 however not seen in the CT from this admission DVT prophylaxis Heparin gtt Dispo--pending clinical improvement. not safe for discharge per physical therapy. VS, I&O, 24H, Fishbone Vital Signs/I&O Vital Signs Date Time Temp Pulse Resp B/P (MAP) Pulse Ox O2 Delivery O2 Flow Rate FiO2 01/03/19 06:00 96.3 60 20 122/59 (80) 96 I&O- Last 24 Hours up to 6 AM 01/03/19 06:00 Intake Total 1500 ml Output Total 1150 ml Balance 350 ml Laboratory Data Microbiology Microbiology 12/24/18 Blood Culture - Final, Complete NO GROWTH AFTER 5 DAYS 12/24/18 Blood Culture - Final, Complete NO GROWTH AFTER 5 DAYS 12/27/18 Stool Occult Blood (GARY) - Final, Complete 12/25/18 Stool Occult Blood (GARY) - Final, Complete 12/25/18 Gastrointestinal Tract Panel (PCR) - Final, Complete 12/25/18 Respiratory Virus Panel (PCR) (GARY) - Final, Complete 12/24/18 Urine Culture - Final, Complete Pseudomonas Aeruginosa MARY HUBBARD MD Jan 03, 2019 08:34
[2019-01-03] MEDS: PREGABALIN 75 MG CAP(LYRICA) PO SCH ×2 (08:54→21:51)
[2019-01-03] MEDS: METOPROLOL TART 25 MG TABLET PO SCH ×2 (08:54→21:00)
[2019-01-03] MEDS: DULoxetine 20 MG CAP (CYMBALTA) PO SCH ×2 (08:55→21:51)
[2019-01-03] MEDS: PANTOPRAZOLE 40MG TAB (PROTONIX) PO SCH (08:55)
[2019-01-03] MEDS: BISACODYL 5 MG TAB PO SCH (08:55)
[2019-01-03] MEDS: PYRIDOXINE 50 MG TAB PO SCH (08:56)
[2019-01-03] MEDS: MOM 30ML SUSPENSION UDC PO SCH (08:57)
[2019-01-03] MEDS: VITAMIN D 1,000 INTERNATIONAL UNITS TABLET PO SCH (08:58)
[2019-01-03] MEDS: COMBIGAN EYE DROPS (PATIENT'S OWN MED) OD SCH ×2 (08:59→21:51)
--- NOTE | 2019-01-03 10:20 | CR ---
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 The patient presented with abdominal pain and apparent hypotension. He had suffered a fall at home. He has had an indwelling Dale catheter since 09/03/2018. He has had issues of constipation and some recent . He has had a pacemaker in place and is on Eliquis for atrial fibrillation. The patient has had dilatation of his colon and CT suggested some irregular thickening in the rectosigmoid colon. The patient denies any complaints of melena, hematochezia or bright blood per rectum. The patient has been seen previously in the office in which he had a positive Cologuard . Colonoscopy was offered but the patient refused at that time based on his age and no apparent symptoms at that time. The patient is feeling better now since lots of liquids and laxatives have helped to evacuate a significant amount of his stool. He is being seen by GI for colonoscopy for further evaluation of the abnormal CT. Current medications that he is on include vitamin D, vitamin D, Eliquis, which has been stopped. He is also on Lopressor and have given him Milk of Magnesia for the evacuation of his colon. He is pantoprazole, and we have started him on GoLYTELY bowel prep. PAST MEDICAL HISTORY: 1. Hypertension. 2. Atrial fibrillation. 3. Status post pacemaker placement. 4. The patient has a history of psoriasis and is apparently on Humira. No family history for colon cancer. SOCIAL HISTORY: Cigarettes, alcohol, drugs negative. In general, he is a well-developed, well-nourished 83-year-old gentleman. He does not appear in any acute distress. Chest is clear to auscultation and percussion. Cardiovascular exam showed regular rhythm. No murmurs or gallops. Normal physiological split, S1, S2. Abdomen is soft, nontender. No masses, guarding, rebound, hepatosplenomegaly. Bowel sounds positive. Extremities: No cyanosis, clubbing or edema. Liz's negative. IMAGING STUDIES: Include two CAT scans. The first one was on 12/24/2018, which the impression was that the patient had multiple nonobstructing calculi bilaterally, dilated colon with diffuse thickening of the ponce of the left transverse colon and sigmoid colon. In fact, there is feces in the rectal vault. The transverse colon was dilated 6.3 cm. It was felt the patient had some kind of a distal colonic obstruction. The patient had a repeat CAT scan of 01/01/2019, which apparently showed improvement. The patient has some moderate fecal stasis, which was mildly improved. No bowel obstruction was appreciated. He apparently had some irregular mural thickening involving the rectosigmoid colon, which warranted colonoscopy to followup. The patient's last colonoscopy according to records was 2004. The patient has had some mild pleural effusions and baseline basilar atelectasis. LABORATORY STUDIES: On admission shows a white count of 26,300, hemoglobin and hematocrit of 13.7 and 44.7. The patient was given IV fluids and his labs as of 01/02/2019 showed a white count of 8300, hemoglobin and hematocrit of 9.7 and 31.3, platelets were 131,000. The patient's coagulation showed an INR of 1.15 on 12/29/2018. The patient's chemistry on admission shows potassium 6.0, BUN was 58, creatinine 2.19. He had a lactic acid of 6.2. The liver functions were essentially normal. ANALYSIS: Abnormal imaging of the colon with distal colonic obstruction, possible fecal impaction versus the need to exclude rectosigmoid colon cancer. Plan will be to set the patient up for a colonoscopy. Bowel prep will be ordered. The patient will have to be off his Eliquis for at least 3 days. PLAN: 1. Set up colonoscopy. 2. Stop Eliquis. 3. Bowel prep orders have been written,.
[2019-01-03 14:00] VITALS: BP 89/47
[2019-01-03] MEDS: LATANOPROST 0.005% OPHTH SOLN 2.5 ML OD SCH (21:51)
[2019-01-03] MEDS: TAMSULOSIN 0.4 MG CAP PO SCH (21:51)
[2019-01-03] MEDS: SENNA 8.6 MG TAB (SENOKOT) PO SCH (21:51)
[2019-01-03] MEDS: SOD CHLORIDE OD SCH (21:52)
[2019-01-03] MEDS: SODIUM CHLORIDE 5% OPHTH OINT 3.5 GM OD SCH (21:52)
[2019-01-03 22:00] VITALS: BP 100/53
[2019-01-04 06:00] VITALS: BP 135/63
--- NOTE | 2019-01-04 08:03 | IPNPDOC ---
Date Seen The patient was seen on 01/04/19. Progress Note Chief Complaint/HPI Due to sigmoid thickening, colonoscopy planned by Dr. Morelos01/04/19. not passed home safety evaluation. no fever or chills, no blood per rectum, had solid bowel movements yesterday and liquid stools since midnight. no c/o abd pain, nausea or vomiting. Objective Physical Examination General Exam: Positive: Alert, Cooperative, No Acute Distress Eye Exam: Positive: PERRLA ENT Exam: Positive: Atraumatic, Mucous membr. moist/pink Chest Exam: Positive: Clear to auscultation, Normal air movement Heart Exam: Positive: Rate Normal, Normal S1, Normal S2 Abdomen Exam: Positive: Soft; Negative: Tenderness Extremity Exam: Negative: Clubbing, Tenderness, Swelling Psych Exam: Positive: Oriented x 3 Assessment /Plan Assessment This is an 83 yo male presented to the ED for diffuse abdominal pain 01/11 which has been intermittent for the past few days. Per patient's at bedside, he has also been having intermittent confusion. Patient wasn't able to give much hx so most of the history was taken from her. She stated that he has been constipated for the few days now, he went to the bathroom multiple times but was unable to pass stool; however she noticed for the past 2 days he has been going on himself, but they couldn't say if it was diarrhea or not, but didn't seem to be much. Fecal Impaction and distal colonic obstruction. managed conservatively. Cont bowel care regimen which has helped the patient have multiple BMs since admission However he continues to have abdominal cramps and liquid stools about 3 to 4 times a day. Repeat CT abdomen an pelvis shows persistence of fecal statsis though less than before. there is an area of thickening at the recto-sigmoid junction. consulted Dr Morelos for colonoscopy. Sepsis possibly 2/2 Underlying UTI in a patient with a Chronic Dale Catheter and recurrent UTI's treated. UA noted, Urine culture positive for pseudomonas finished 7 days of Zosyn. 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 Metabolic encephalopathy 2/2 UTI, resolved BPH Continue Flomax GERD Continue PPI Anxiety/depression Continue duloxetine, Lyrica Bladder calculi seen in pelvic CT of 12/16/18 and also in 2018 however not seen in the CT from this admission DVT prophylaxis Heparin gtt Dispo-awaiting colonoscopy. not safe for discharge per physical therapy. VS, I&O, 24H, Fishbone Vital Signs/I&O Vital Signs Date Time Temp Pulse Resp B/P (MAP) Pulse Ox O2 Delivery O2 Flow Rate FiO2 01/04/19 06:00 97.4 76 19 135/63 (87) 99 I&O- Last 24 Hours up to 6 AM 01/04/19 06:00 Intake Total 3380 ml Output Total 2850 ml Balance 530 ml Laboratory Data Microbiology Microbiology 12/27/18 Stool Occult Blood (GARY) - Final, Complete 12/25/18 Stool Occult Blood (GARY) - Final, Complete 12/25/18 Gastrointestinal Tract Panel (PCR) - Final, Complete 12/25/18 Respiratory Virus Panel (PCR) (GARY) - Final, Complete MARY HUBBARD MD Jan 04, 2019 07:09
[2019-01-04] MEDS: DULoxetine 20 MG CAP (CYMBALTA) PO SCH ×2 (09:00→22:18)
[2019-01-04] MEDS: PREGABALIN 75 MG CAP(LYRICA) PO SCH ×2 (09:00→22:17)
[2019-01-04] MEDS: COMBIGAN EYE DROPS (PATIENT'S OWN MED) OD SCH ×2 (09:00→22:20)
[2019-01-04] MEDS: PANTOPRAZOLE 40MG TAB (PROTONIX) PO SCH (09:00)
[2019-01-04] MEDS: MOM 30ML SUSPENSION UDC PO SCH (09:00)
[2019-01-04] MEDS: VITAMIN D 1,000 INTERNATIONAL UNITS TABLET PO SCH (09:00)
[2019-01-04] MEDS: PYRIDOXINE 50 MG TAB PO SCH (09:00)
[2019-01-04] MEDS: METOPROLOL TART 25 MG TABLET PO SCH ×2 (09:16→22:18)
[2019-01-04] MEDS: BISACODYL 5 MG TAB PO SCH (09:17)
[2019-01-04] MEDS ORDERED: LIDOCAINE 2% INJ 100 MG/5 ML SDV (FOR ANES.) As Ordered ONE (14:02)
[2019-01-04] MEDS ORDERED: PHENYLephrine HCL 500 MCG/5 ML (100MCG/ML) SYRINGE (J2370) As Ordered ONE (14:20)
[2019-01-04] MEDS ORDERED: ePHEDrine SULFATE 25 MG/5 ML(5MG/ML) SYRINGE As Ordered ONE (14:20)
[2019-01-04] MEDS ORDERED: PROPOFOL 200 MG/20 ML VIAL As Ordered ONE (14:21)
--- NOTE | 2019-01-04 14:40 | ROOR ---
Patient Name: Talat Herrera Procedure Date: 01/04/2019 2:08 PM Date of : 1935 Age: 83 Room: [facility] Gender: Male Note Status: Finalized Procedure: Total Colonoscopy to cecum + Bx. Indications: Abnormal CT of the GI tract, Obstipation Providers: Sabino Morelos MD Referring MD: Warner Lerma MD Requesting Provider: Medicines: Monitored Anesthesia Care Complications: No immediate complications. Procedure: Pre-Anesthesia Assessment: - The heart rate, respiratory rate, oxygen saturations, blood pressure, adequacy of pulmonary ventilation, and response to care were monitored throughout the procedure. The Colonoscope was introduced through the anus and advanced to the cecum, identified by appendiceal orifice and ileocecal valve. The colonoscopy was performed without difficulty. The patient tolerated the procedure well. The quality of the bowel preparation was fair. Findings: The perianal and digital rectal examinations were normal. Non-bleeding internal hemorrhoids were found during retroflexion. The hemorrhoids were small and Grade I (internal hemorrhoids that do not prolapse). Multiple small and large-mouthed diverticula were found in the recto-sigmoid colon, sigmoid colon and descending colon. Discontinuous areas of nonbleeding ulcerated mucosa with no stigmata of recent bleeding were present in the recto-sigmoid colon, in the sigmoid colon and in the descending colon. Biopsies were taken with a cold forceps for histology. The exam was otherwise without abnormality on direct and retroflexion views. Impression: - Preparation of the colon was fair. - Non-bleeding internal hemorrhoids. - Diverticulosis in the recto-sigmoid colon, in the sigmoid colon and in the descending colon. - Mucosal ulceration. Biopsied. - The examination was otherwise normal on direct and retroflexion views. - The exam was otherwise normal to the cecum. Recommendation: - Patient has a contact number available for emergencies. The signs and symptoms of potential delayed complications were discussed with the patient. Return to normal activities tomorrow. Written discharge instructions were provided to the patient. - Resume previous diet. - Return patient to [facility] care. - Continue present medications. - Await pathology results. - Telephone GI clinic for pathology results in 1 week. - The findings and recommendations were discussed with the referring physician. Sabino Morelos MD Sabino Morelos MD 01/04/2019 2:39:36 PM Electronically signed by Sabino Morelos MD Number of Addenda: 0 Note Initiated On: 01/04/2019 2:08 PM Estimated Blood Loss: Estimated blood loss: none.
[2019-01-04 15:35] VITALS: BP 125/67
[2019-01-04] MEDS ORDERED: CIPROFLOXACIN 200 MG in APPROPRIATE DILUENT 1 EA IV SCH (21:00)
[2019-01-04 22:00] VITALS: BP 124/68
[2019-01-04] MEDS: metroNIDAZOLE 500 MG in APPROPRIATE DILUENT 1 EA IV SCH (22:18)
[2019-01-04] MEDS: TAMSULOSIN 0.4 MG CAP PO SCH (22:18)
[2019-01-04] MEDS: SENNA 8.6 MG TAB (SENOKOT) PO SCH (22:18)
[2019-01-04] MEDS: LATANOPROST 0.005% OPHTH SOLN 2.5 ML OD SCH (22:19)
[2019-01-04] MEDS: SOD CHLORIDE OD SCH (22:19)
[2019-01-04] MEDS: SODIUM CHLORIDE 5% OPHTH OINT 3.5 GM OD SCH (22:20)
[2019-01-04] MEDS: cefTRIAXone SOD 1 GM in D5W MINI-BAG PLUS 50 ML IV SCH (23:27)
[2019-01-05] MEDS: metroNIDAZOLE 500 MG in APPROPRIATE DILUENT 1 EA IV SCH ×3 (03:46→20:02)
[2019-01-05 06:00] VITALS: BP 117/63
[2019-01-05 06:55] LABS: HEMATOCRIT 30.8 % (42.0-52.0); HEMOGLOBIN 9.7 g/dl (13.5-17.5); MEAN CORPUSCULAR HEMOGLOBIN 27.8 pg (27.0-33.0); MEAN CORPUSCULAR HGB CONC 31.5 g/dl (32.0-36.5); MEAN CORPUSCULAR VOLUME 88.3 fl (80.0-96.0); PLATELET COUNT, AUTOMATED 191 10^3/uL (150-450); RED BLOOD COUNT 3.49 10^6/uL (4.30-6.10); WHITE BLOOD COUNT 5.3 10^3/uL (4.0-10.0)
[2019-01-05 07:27] LABS: BLOOD UREA NITROGEN 8 MG/DL (7-18); CALCIUM LEVEL 7.6 MG/DL (8.8-10.2); CARBON DIOXIDE LEVEL 28 MEQ/L (21-32); CHLORIDE LEVEL 109 MEQ/L (98-107); CREATININE FOR GFR 0.82 MG/DL (0.70-1.30); GLOMERULAR FILTRATION RATE > 60.0 (>35); GLUCOSE, FASTING 77 MG/DL (70-100); POTASSIUM SERUM 3.9 MEQ/L (3.5-5.1); SODIUM LEVEL 142 MEQ/L (136-145)
--- NOTE | 2019-01-05 08:08 | IPNPDOC ---
Date Seen The patient was seen on 01/05/19. Progress Note Subjective: anxious to go home. has not passed HSE and will need 1-2 more sessions. Due to sigmoid thickening, colonoscopy Dr. Morelos01/04/19: possible ischemic colitis, started on flagyl and ceftriaxone due to allergy to cipro. no c/o abd pain, nausea or vomiting. no fever or chills. n Objective Physical Examination General Exam: Positive: Alert, Cooperative, No Acute Distress Eye Exam: Positive: PERRLA ENT Exam: Positive: Atraumatic, Mucous membr. moist/pink Chest Exam: Positive: Clear to auscultation, Normal air movement Heart Exam: Positive: Rate Normal, Normal S1, Normal S2 Abdomen Exam: Positive: Soft; Negative: Tenderness Extremity Exam: Negative: Clubbing, Tenderness, Swelling Psych Exam: Positive: Oriented x 3 Assessment /Plan Assessment This is an 83 yo male presented to the ED for diffuse abdominal pain 01/11 which has been intermittent for the past few days. Per patient's at bedside, he has also been having intermittent confusion. Patient wasn't able to give much hx so most of the history was taken from her. She stated that he has been constipated for the few days now, he went to the bathroom multiple times but was unable to pass stool; however she noticed for the past 2 days he has been going on himself, but they couldn't say if it was diarrhea or not, but didn't seem to be much. Fecal Impaction managed conservatively. Cont bowel care regimen which has helped the patient have multiple BMs since admission However he continues to have abdominal cramps and liquid stools about 3 to 4 times a day. Repeat CT abdomen an pelvis shows persistence of fecal statsis though less than before. there is an area of thickening at the recto-sigmoid junction. 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 Morelos. started on flagyl and ceftriaxone due to allergy to cipro. no c/o abd pain, nausea or vomiting. no fever or chills. no bloody stools. Sepsis possibly 2/2 Underlying UTI in a patient with a Chronic Dale Catheter and recurrent UTI's treated. UA noted, Urine culture positive for pseudomonas finished 7 days of Zosyn. 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 Metabolic encephalopathy 2/2 UTI, resolved BPH Continue Flomax GERD Continue PPI Anxiety/depression Continue duloxetine, Lyrica Bladder calculi seen in pelvic CT of 12/16/18 and also in 2018 however not seen in the CT from this admission dvt prophylaxis: eliquis held due to recent colonoscopy with biopsy to decrease risk of bleeding. hold x 3 days per GI. disposition:await pt clearance VS, I&O, 24H, Fishbone Vital Signs/I&O Vital Signs Date Time Temp Pulse Resp B/P (MAP) Pulse Ox O2 Delivery O2 Flow Rate FiO2 01/05/19 06:00 97.9 68 19 117/63 (81) 99 l I&O- Last 24 Hours up to 6 AM 01/05/19 06:00 Intake Total 1580 ml Output Total 3825 ml Balance -2245 ml Laboratory Data 24H LABS Laboratory Tests 2 01/05/19 06:36: Nucleated Red Blood Cells % (auto) 0.0, Anion Gap 5L, Glomerular Filtration Rate > 60.0, Blood Urea Nitrogen 8, Creatinine 0.82, Sodium Level 142, Potassium Level 3.9, Chloride Level 109H, Carbon Dioxide Level 28, Calcium Level 7.6L CBC/BMP Laboratory Tests 01/05/19 06:36 Red Blood Count 3.49 L, Mean Corpuscular Volume 88.3, Mean Corpuscular Hemoglobin 27.8, Mean Corpuscular Hemoglobin Concent 31.5 L, Red Cell Distribution Width 18.7 H, Calcium Level 7.6 L Microbiology Microbiology 12/27/18 Stool Occult Blood (GARY) - Final, Complete MARY HUBBARD MD Jan 05, 2019 08:08
[2019-01-05] MEDS: METOPROLOL TART 25 MG TABLET PO SCH ×2 (09:00→21:33)
[2019-01-05] MEDS: MOM 30ML SUSPENSION UDC PO SCH (09:00)
[2019-01-05] MEDS ORDERED: NS 250 ML IV ONE (09:30)
[2019-01-05 09:39] VITALS: BP 87/51
[2019-01-05] MEDS: PANTOPRAZOLE 40MG TAB (PROTONIX) PO SCH (10:19)
[2019-01-05] MEDS: PYRIDOXINE 50 MG TAB PO SCH (10:19)
[2019-01-05] MEDS: VITAMIN D 1,000 INTERNATIONAL UNITS TABLET PO SCH (10:19)
[2019-01-05] MEDS: DULoxetine 20 MG CAP (CYMBALTA) PO SCH ×2 (10:19→21:32)
[2019-01-05] MEDS: PREGABALIN 75 MG CAP(LYRICA) PO SCH ×2 (10:20→21:33)
[2019-01-05] MEDS: BISACODYL 5 MG TAB PO SCH (10:20)
[2019-01-05] MEDS: COMBIGAN EYE DROPS (PATIENT'S OWN MED) OD SCH ×2 (10:21→21:34)
[2019-01-05 13:54] VITALS: BP 94/53
[2019-01-05 14:00] VITALS: BP 94/53
--- NOTE | 2019-01-05 15:31 | NUR ---
Recommend mechanical soft solids, thin liquids, OOB for meals. Recommend esophagram barium swallow to evaluate for possible cricopharyngeal dysfunction or other upper esophageal issues. Will f/u pending results of esophagram barium swallow. Addendum: 01/05/[address] [facility] Amended: Links added.
[2019-01-05] MEDS: TAMSULOSIN 0.4 MG CAP PO SCH (21:32)
[2019-01-05] MEDS: SENNA 8.6 MG TAB (SENOKOT) PO SCH (21:33)
[2019-01-05] MEDS: cefTRIAXone SOD 1 GM in D5W MINI-BAG PLUS 50 ML IV SCH (21:33)
[2019-01-05] MEDS: LATANOPROST 0.005% OPHTH SOLN 2.5 ML OD SCH (21:34)
[2019-01-05] MEDS: SODIUM CHLORIDE 5% OPHTH OINT 3.5 GM OD SCH (21:34)
[2019-01-05] MEDS: SOD CHLORIDE OD SCH (21:34)
[2019-01-05 22:00] VITALS: BP 112/56
[2019-01-06] MEDS: metroNIDAZOLE 500 MG in APPROPRIATE DILUENT 1 EA IV SCH (03:56)
[2019-01-06 06:00] VITALS: BP 119/67
[2019-01-06 06:42] LABS: MEAN CORPUSCULAR VOLUME 90.1 fl (80.0-96.0); PLATELET COUNT, AUTOMATED 173 10^3/uL (150-450); RED BLOOD COUNT 3.22 10^6/uL (4.30-6.10); WHITE BLOOD COUNT 5.7 10^3/uL (4.0-10.0)
[2019-01-06] MEDS ORDERED: BACITAB PO (07:10)
[2019-01-06 07:13] LABS: BLOOD UREA NITROGEN 8 MG/DL (7-18); CALCIUM LEVEL 7.4 MG/DL (8.8-10.2); CARBON DIOXIDE LEVEL 28 MEQ/L (21-32); CHLORIDE LEVEL 108 MEQ/L (98-107); CREATININE FOR GFR 0.88 MG/DL (0.70-1.30); GLOMERULAR FILTRATION RATE > 60.0 (>35); GLUCOSE, FASTING 98 MG/DL (70-100); POTASSIUM SERUM 3.7 MEQ/L (3.5-5.1); SODIUM LEVEL 140 MEQ/L (136-145)
[2019-01-06] MEDS ORDERED: AUGM875T28 PO (07:14)
[2019-01-06] MEDS: PREGABALIN 75 MG CAP(LYRICA) PO SCH (08:47)
[2019-01-06] MEDS: MOM 30ML SUSPENSION UDC PO SCH (08:47)
[2019-01-06] MEDS: BISACODYL 5 MG TAB PO SCH (08:47)
[2019-01-06 08:48] VITALS: BP 119/67
[2019-01-06] MEDS: VITAMIN D 1,000 INTERNATIONAL UNITS TABLET PO SCH (08:48)
[2019-01-06] MEDS: METOPROLOL TART 25 MG TABLET PO SCH (08:48)
[2019-01-06] MEDS: PANTOPRAZOLE 40MG TAB (PROTONIX) PO SCH (08:48)
[2019-01-06] MEDS: DULoxetine 20 MG CAP (CYMBALTA) PO SCH (08:48)
[2019-01-06] MEDS: COMBIGAN EYE DROPS (PATIENT'S OWN MED) OD SCH (08:48)
--- NOTE | 2019-01-06 12:41 | DS.PDOC ---
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 Per patient's at bedside, he has also been having intermittent confusion. Patient wasn't able to give much hx so most of the history was taken from her. She stated that he has been constipated for the few days now, he went to the bathroom multiple times but was unable to pass stool; however she noticed for the past 2 days he has been going on himself, but they couldn't say if it was diarrhea or not, but didn't seem to be much. Hospital Course; Fecal Impaction managed conservatively. Cont bowel care regimen which has helped the patient have multiple BMs since admission However he continues to have abdominal cramps and liquid stools about 3 to 4 times a day. Repeat CT abdomen an pelvis shows persistence of fecal statsis though less than before. there is an area of thickening at the recto-sigmoid junction. consulted Dr Morelos for colonoscopy : ischemic colitis Ischemic Colitis Due to sigmoid thickening, colonoscopy Dr. Morelos01/04/19: possible ischemic colitis, started on flagyl and ceftriaxone due to allergy to cipro. no c/o abd pain, nausea or vomiting. no fever or chills. hold eliquis x 3 days Sepsis possibly 2/2 Underlying UTI in a patient with a Chronic Joiner Catheter and recurrent UTI's treated. UA noted, Urine culture positive for pseudomonas finished 7 days of Zosyn. 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 Metabolic encephalopathy 2/2 UTI, resolved BPH Continue Flomax GERD Continue PPI Anxiety/depression Continue duloxetine, Lyrica Bladder calculi seen in pelvic CT of 12/16/18 and also in 2018 however not seen in the CT from this admission dvt prophylaxis: eliquis held due to recent colonoscopy with biopsy to decrease risk of bleeding. hold x 3 days per GI. Discharge Physical Examination General Exam: Positive: Alert, Cooperative, No Acute Distress Eye Exam: Positive: PERRLA ENT Exam: Positive: Atraumatic, Mucous membr. moist/pink Chest Exam: Positive: Clear to auscultation, Normal air movement Heart Exam: Positive: Rate Normal, Normal S1, Normal S2 Abdomen Exam: Positive: Soft; Negative: Tenderness Extremity Exam: Negative: Clubbing, Tenderness, Swelling Psych Exam: Positive: Oriented x 3 LABORATORY DATA, IMAGING STUDIES, MICROBIOLOGY: PLS SEE BELOW TIME SPENT ON HOSPITAL DISCHARGE: 30 MIN Vital Signs/I&Os Vital Signs Date Time Temp Pulse Resp B/P (MAP) Pulse Ox O2 Delivery O2 Flow Rate FiO2 01/06/19 08:48 100 119/67 01/06/19 06:00 97.2 19 97 I&O- Last 24 Hours up to 6 AM 01/06/19 06:00 Intake Total 2250 ml Output Total 2375 ml Balance -125 ml Laboratory Data Labs 24H Laboratory Tests 2 01/06/19 06:28: Nucleated Red Blood Cells % (auto) 0.0, Anion Gap 4L, Glomerular Filtration Rate > 60.0, Blood Urea Nitrogen 8, Creatinine 0.88, Sodium Level 140, Potassium Level 3.7, Chloride Level 108H, Carbon Dioxide Level 28, Calcium Level 7.4L CBC/BMP Laboratory Tests 01/06/19 06:28 Red Blood Count 3.22 L, Mean Corpuscular Volume 90.1, Mean Corpuscular Hemoglobin 28.0, Mean Corpuscular Hemoglobin Concent 31.0 L, Red Cell Distrib ution Width 18.6 H, Calcium Level 7.4 L Microbiology Microbiology 12/27/18 Stool Occult Blood (GARY) - Final, Complete Discharge Medications Scheduled (Leg Cramp Relief) 1 Tab Tab, 1 TAB PO QWEEK, (Reported) (Combigan 0.2-0.5 %) 1 Lora Lora, 1 DROP OD BID, (Reported) Amoxicillin/Clavulanate Potas (Augmentin 875-125 mg) 1 Tab Tab, 875 MG PO BID Ascorbic Acid (Vitamin C) 500 Mg Tab, 500 MG PO DAILY, (Reported) Duloxetine HCl (Cymbalta) 20 Mg Cap, 20 MG PO BID, (Reported) Folic Acid (Folic Acid) 400 Mcg Tab, 400 MCG PO DAILY, (Reported) Lactobacillus Acidophilus (Bacid) 1 Tab Tab, 1 TAB PO ACHS Latanoprost (Xalatan) 0.005 % Lora, 1 DROP OD QHS, (Reported) Metoprolol Tartrate (Metoprolol Tartrate) 25 Mg Tab, 25 MG PO BID, (Reported) Penicillin V Potassium (Penicillin V Potassium) 250 Mg Tab, 250 MG PO DAILY, (Reported) STARTED 12/09/2018 Pregabalin (Lyrica) 150 Mg Cap, 150 MG PO BID, (Reported) Pyridoxine HCl (Vitamin B 6) 50 Mg Tab, 100 MG PO DAILY, (Reported) Senna (Senna Laxative) 8.6 Mg Tab, 1 TAB PO QHS, (Reported) Sodium Chloride (Gladis 128 Opth Lora 2%) 300 Drop/15 Ml Soln, 1 DROP OD QHS, (Reported) Sodium Chloride (Gladis 128 Opth Oint 5%) 5 % Oin, 1 DOSE OD QHS, (Reported) Sulfasalazine (Sulfasalazine) 500 Mg Tab, 500 MG PO BID, (Reported) Tamsulosin Hydrochloride (Flomax) 0.4 Mg Cap, 0.4 MG PO QPM, (Reported) Vitamin D (Vitamin D) 1,000 Unit Cap, 1,000 UNITS PO DAILY, (Reported) Scheduled PRN Acetaminophen (Tylenol Extra Strength) 500 Mg Tab, 500 MG PO Q4H PRN for PAIN, (Reported) Mupirocin (Mupirocin) 2 % Oin, 1 DOSE TOP BID PRN for INFECTION, (Reported) APPLY TO LEFT TOE Polyethylene Glycol (Miralax) 1 Pow Pow, 17 GM PO DAILY PRN for CONSTIPATION, (Reported) Allergies Coded Allergies: egg (Verified Allergy, Intermediate, 12/28/18) ciprofloxacin (Verified Allergy, Mild, 12/28/18) MARY HUBBARD MD Jan 06, 2019 12:41
== END 2019-01-06 11:51 | disposition home health service (06) | DRG 698 ==
LOC: M ED 14:05 → EDBD 14:05 → M ED INP 20:11 → M PCU 12-25 01:57 → M MS5PR 12-30 18:45
PROVIDERS: ADMIT Internal Medicine; ATTEND General Practice
PROC: 0DBN7ZX Excision of Sigmoid Colon, Via Natural or Artificial Opening, Diagnostic (ICD-10-PCS; principal; 2019-01-04 15:10)
DX: T83.511A Infection and inflammatory reaction due to indwelling urethral catheter, initial encounter (principal); A41.9 Sepsis, unspecified organism; G93.41 Metabolic encephalopathy; E87.2 Acidosis; N17.9 Acute kidney failure, unspecified; K55.9 Vascular disorder of intestine, unspecified; K56.41 Fecal impaction; N18.3 Chronic kidney disease, stage 3 (moderate); K21.9 Gastro-esophageal reflux disease without esophagitis; F32.9 Major depressive disorder, single episode, unspecified; F41.9 Anxiety disorder, unspecified; N40.0 Benign prostatic hyperplasia without lower urinary tract symptoms; I48.2 Chronic atrial fibrillation; Z79.899 Other long term (current) drug therapy; Z88.8 Allergy status to other drugs, medicaments and biological substances; Z91.018 Allergy to other foods; Z95.0 Presence of cardiac pacemaker; L40.8 Other psoriasis; K64.0 First degree hemorrhoids; K57.30 Diverticulosis of large intestine without perforation or abscess without bleeding; I12.9 Hypertensive chronic kidney disease with stage 1 through stage 4 chronic kidney disease, or unspecified chronic kidney disease; Y84.6 Urinary catheterization as the cause of abnormal reaction of the patient, or of later complication, without mention of misadventure at the time of the procedure

== ENCOUNTER → 2019-02-15 | Outpatient (REF) | payer MEDICARE, OTHER ==
[~2019-02-15] MED LIST changes: +ACET-683 PO; +AUGM875T28 PO; +BACITAB PO; +BACT800T5 PO; +MULTCAP PO; +PENI1TAB17 PO; +SULF500T2 PO; +SULF500TA PO; +VITAD1000T PO; +[UNRECOGNIZED DRUG - CODE] PO
[2019-02-15 15:56] LABS: BASO # 0.1 10^3/uL (0.0-0.2); BASO % 1.1 % (0.0-1.0); HEMOGLOBIN 10.8 g/dl (13.5-17.5); LYMPH # 1.1 10^3/uL (1.5-4.5); LYMPH % 16.5 % (24.0-44.0); MEAN CORPUSCULAR HEMOGLOBIN 27.4 pg (27.0-33.0); MEAN CORPUSCULAR VOLUME 91.4 fl (80.0-96.0); MONO # 0.8 10^3/uL (0.0-0.8); MONO % 11.8 % (0.0-5.0); NEUTROPHILS # 4.7 10^3/uL (1.8-7.7); NEUTROPHILS % 70.1 % (36.0-66.0); PLATELET COUNT, AUTOMATED 239 10^3/uL (150-450); RED BLOOD COUNT 3.94 10^6/uL (4.30-6.10); WHITE BLOOD COUNT 6.6 10^3/uL (4.0-10.0)
[2019-02-15 16:01] LABS: ALBUMIN 2.6 GM/DL (3.2-5.2); ALT/SGPT 18 U/L (12-78); BILIRUBIN,TOTAL 0.5 MG/DL (0.2-1.0); BLOOD UREA NITROGEN 15 MG/DL (7-18); CALCIUM LEVEL 8.4 MG/DL (8.8-10.2); CARBON DIOXIDE LEVEL 31 MEQ/L (21-32); CHLORIDE LEVEL 104 MEQ/L (98-107); CREATININE FOR GFR 0.87 MG/DL (0.70-1.30); GLOMERULAR FILTRATION RATE > 60.0 (>35); GLUCOSE, FASTING 158 MG/DL (70-100); POTASSIUM SERUM 4.2 MEQ/L (3.5-5.1); SODIUM LEVEL 139 MEQ/L (136-145); TOTAL PROTEIN 7.9 GM/DL (6.4-8.2)
[2019-02-15 16:35] LABS: ERYTHROCYTE SEDIMENTATION RATE 92 mm/hr (0-20)
== END ==
LOC: M SFHCPLAZ 14:17
PROVIDERS: ATTEND Internal Medicine Rheumatology
DX: L40.50 Arthropathic psoriasis, unspecified (principal)
CPT/HCPCS: 36415; 80053; 85025; 85652; 86140; G0463

== ENCOUNTER 2019-03-07 17:03 | Inpatient (IN) | payer MEDICARE, OTHER ==
[~2019-03-07] VITALS: Ht 175.3 cm; Wt 75.1 kg
[~2019-03-07 17:03] MED LIST changes: -ACET-683 PO; -MULTCAP PO; -VITAD1000T PO; -[UNRECOGNIZED DRUG - CODE] PO
[2019-03-07] MEDS ORDERED: MULTCAP PO (17:46)
--- NOTE | 2019-03-07 18:02 | REP ---
Chest one-view HISTORY: Fall Comparison: 12/24/2018 There is elevation of the right hemidiaphragm. Patchy density is present in the right lower lobe consistent with an infiltrate. Parenchymal densities are present in the left lower lobe consistent with fibrosis. The heart is normal in size. The pulmonary vasculature is normal in appearance. A cardiac pacemaker is present. Impression: Right lower lobe infiltrate. Electronically Signed by Thomas Pan MD 03/07/2019 05:53 P
[2019-03-07 18:07] LABS: VENOUS BASE EXCESS 3.2 (-2.0-2.0); VENOUS O2 SATURATION 45.2 % (60.0-80.0); VENOUS PARTIAL PRESSURE CO2 64.1 mmHg (38.0-50.0); VENOUS PARTIAL PRESSURE O2 27.3 mmHg (30.0-50.0); VENOUS PH 7.303 UNITS (7.330-7.430); VENOUS STANDARD HCO3 26.2 MEQ/L
[2019-03-07 18:20] LABS: BASO # 0.1 10^3/uL (0.0-0.2); BASO % 0.5 % (0.0-1.0); HEMATOCRIT 37.9 % (42.0-52.0); HEMOGLOBIN 11.2 g/dl (13.5-17.5); LYMPH # 1.1 10^3/uL (1.5-4.5); LYMPH % 11.1 % (24.0-44.0); MEAN CORPUSCULAR HEMOGLOBIN 27.7 pg (27.0-33.0); MEAN CORPUSCULAR HGB CONC 29.6 g/dl (32.0-36.5); MEAN CORPUSCULAR VOLUME 93.6 fl (80.0-96.0); MONO # 1.2 10^3/uL (0.0-0.8); MONO % 11.3 % (0.0-5.0); NEUTROPHILS # 7.8 10^3/uL (1.8-7.7); NEUTROPHILS % 76.5 % (36.0-66.0); PLATELET COUNT, AUTOMATED 198 10^3/uL (150-450); RED BLOOD COUNT 4.05 10^6/uL (4.30-6.10); WHITE BLOOD COUNT 10.2 10^3/uL (4.0-10.0)
[2019-03-07 18:32] LABS: ALBUMIN 2.6 GM/DL (3.2-5.2); ALT/SGPT 15 U/L (12-78); BILIRUBIN,DIRECT 0.3 MG/DL (0.0-0.2); BILIRUBIN,TOTAL 0.5 MG/DL (0.2-1.0); BLOOD UREA NITROGEN 16 MG/DL (7-18); CALCIUM LEVEL 8.4 MG/DL (8.8-10.2); CARBON DIOXIDE LEVEL 30 MEQ/L (21-32); CHLORIDE LEVEL 105 MEQ/L (98-107); CPK CREATINE PHOSPHOKINASE 39 U/L (39-308); CREATININE FOR GFR 1.06 MG/DL (0.70-1.30); GLOMERULAR FILTRATION RATE > 60.0 (>35); GLUCOSE, FASTING 143 MG/DL (70-100); INR 1.6; MB/CK RELATIVE INDEX 5.64 (< OR =4); NT-PRO BNP 9814 PG/ML (<450); POTASSIUM SERUM 4.5 MEQ/L (3.5-5.1); PROTHROMBIN TIME 19.3 SECONDS (12.1-14.4); SODIUM LEVEL 139 MEQ/L (136-145); TOTAL PROTEIN 8.6 GM/DL (6.4-8.2); TROPONIN I < 0.02 NG/ML (< 0.10)
[2019-03-07] MEDS ORDERED: cefTRIAXone SOD 1 GM in D5W MINI-BAG PLUS 50 ML IV ONE (19:30)
[2019-03-07] MEDS ORDERED: ACET-683 PO (19:49)
[2019-03-07] MEDS ORDERED: [UNRECOGNIZED DRUG - CODE] PO (19:49)
[2019-03-07] MEDS ORDERED: MURO5OIN OD (19:50)
[2019-03-07] MEDS ORDERED: ELIQ5TAB PO (19:50)
[2019-03-07] MEDS ORDERED: VITAD1000T PO (19:50)
[2019-03-07] MEDS: AZITHROMYCIN INJ 500 MG, VIAL MATE ADAPTER 1 EACH in D5W 250 ML IV SCH (21:33)
[2019-03-07] MEDS: TAMSULOSIN 0.4 MG CAP PO SCH (21:34)
[2019-03-07] MEDS: DULoxetine 20 MG CAP (CYMBALTA) PO SCH (21:34)
[2019-03-07] MEDS: METOPROLOL TART 25 MG TABLET PO SCH (21:35)
[2019-03-07] MEDS: sulfaSALAzine 500 MG TABEC PO SCH (21:36)
[2019-03-07] MEDS: PREGABALIN 75 MG CAP(LYRICA) PO SCH (21:36)
--- NOTE | 2019-03-07 21:37 | HPEPDOC ---
[facility] Medical History & Physical Date of Admission Mar 07, 2019 Date of Service: Mar 07, 2019 History and Physical CHIEF COMPLAINT: SOB HISTORY OF PRESENT ILLNESS: Patient is a 83-year-old male past medical history of psoriatic arthritis, A. fib, documented tachy/grady syndrome with pacemaker, and urinary retention presented for worsening shortness of breath for several weeks. Associated symptoms including morning productive cough along with chills otherwise denies any chest pain or apparent fevers. In ER, patient was found to have RLL infiltrate along with elevated BNP of 9,814. No history of heart failure that patient or noted in the past but patient does follow with Dr. Duggan for afib and other cardiac problems. He is currently comfortable and denies any other complaints. PAST MEDICAL HISTORY: Refer to [facility] PAST SURGICAL HISTORY: SOCIAL HISTORY: Former smoker. Social alcohol but denies illicit drug use. FAMILY HISTORY: No known medical problems in family that patient knows about. ALLERGIES: Please see below. REVIEW OF SYSTEMS: 10 point review of system negative except as stated in [facility] HOME MEDICATIONS: Please see below. PHYSICAL EXAMINATION: General: No acute distress, Alert Eyes: Normal sclera, EOMI, SANDY HENT: Atraumatic, neck supple, moist mucous membranes Cardiovascular: Normal rate. No murmurs appreciated. 1-2+ pitting edema b/l. Pulmonary: crackles b/l bases GI: Soft, nontender, nondistended Skin: Warm and dry Neuro: CN grossly intact. No focal deficits. Strengths equal b/l. Psych: oriented x 3 LABORATORY DATA: See below. IMAGING: CXR- RLL infiltrate MICROBIOLOGY: Please see below. ASSESSMENT AND PLAN: 1. Pneumonia - RLL infiltrate on CXR with productive cough. - Appear clinically well at this time. - Start on Rocephin and Azithromycin. - blood cultures obtained. follow up respiratory panel. 2. Afib - resume Eliquis and BB home med. - Rate controlled at this time. 3. HTN - Resume home meds 4. LE swelling - LE swelling with elevated BNP >9000. - No known recent ECHO that patient is aware of. - ECHO ordered. Gentle diuresis at this time. 5. Psoriasis - Resume home meds. - Started on Toña recently. DVT ppx: Eliquis Code status: DNR Vital Signs Vital Signs Date Time Temp Pulse Resp B/P (MAP) Pulse Ox O2 Delivery O2 Flow Rate FiO2 03/07/19 20:45 60 18 124/72 (89) 94 Room Air 03/07/19 19:58 96.0 Laboratory Data Labs 24H Laboratory Tests 2 03/07/19 17:45: Immature Granulocyte % (Auto) 0.6, White Blood Count 10.2H, Red Blood Count 4.05L, Hemoglobin 11.2L, Hematocrit 37.9L, Mean Corpuscular Volume 93.6, Mean Corpuscular Hemoglobin 27.7, Mean Corpuscular Hemoglobin Concent 29.6L, Red Cell Distribution Width 17.4H, Platelet Count 198, Neutrophils (%) (Auto) 76.5H, Lymphocytes (%) (Auto) 11.1L, Monocytes (%) (Auto) 11.3H, Eosinophils (%) (Auto) 0.0, Basophils (%) (Auto) 0.5, Neutrophils # (Auto) 7.8H, Lymphocytes # (Auto) 1.1L, Monocytes # (Auto) 1.2H, Eosinophils # (Auto) 0.0, Basophils # (Auto) 0.1, Nucleated Red Blood Cells % (auto) 0.0, Prothrombin Time 19.3H, Prothromb Time International Ratio 1.60, Blood Gas Bicarbonate Standard 26.2, Venous Blood pH 7.303L, Venous Blood Partial Pressure CO2 64.1H, Venous Blood Partial Pressure O2 27.3L, Venous Blood Total Carbon Dioxide 33.0H, Venous Blood HCO3 31.0H, Venous Blood Oxygen Saturation 45.2L, Venous Blood Base Excess 3.2H, Anion Gap 4L, Glomerular Filtration Rate > 60.0, Lactic Acid Level 2.1*H, Calcium Level 8.4L, Aspartate Amino Transf (AST/SGOT) 19, Alanine Aminotransferase (ALT/SGPT) 15, Alkaline Phosphatase 84, Total Bilirubin 0.5, Direct Bilirubin 0.3H, Total Creatine Kinase 39, Creatine Kinase MB 2.0, Creatine Kinase MB Relative Index 5.64H, Troponin I < 0.02, WC-Bxx-C-Type Natriuretic Peptide 9814H, Total Protein 8.6H, Albumin 2.6L, Albumin/Globulin Ratio 0.43L, Thyroid Stimulating Hormone (TSH) 5.680H CBC/BMP Laboratory Tests 03/07/19 17:45 Red Blood Count 4.05 L, Mean Corpuscular Volume 93.6, Mean Corpuscular Hemoglob in 27.7, Mean Corpuscular Hemoglobin Concent 29.6 L, Red Cell Distribution Width 17.4 H, Neutrophils (%) (Auto) 76.5 H, Lymphocytes (%) (Auto) 11.1 L, Monocytes (%) (Auto) 11.3 H, Eosinophils (%) (Auto) 0.0, Basophils (%) (Auto) 0.5, Neutrophils # (Auto) 7.8 H, Lymphocytes # (Auto) 1.1 L, Monocytes # (Auto) 1.2 H, Eosinophils # (Auto) 0.0, Basophils # (Auto) 0.1 Microbiology Microbiology 03/07/19 Blood Culture, Received Pending 03/07/19 Blood Culture, Received Pending 03/07/19 Respiratory Virus Panel (PCR) ([facility]) - Final, Complete Home Medications Scheduled Acetaminophen/Pamabrom (Cramp Tablet) 1 Each Tablet, 1 TAB PO QWEEK TAKES ON TUESDAYS FOR LEG CRAMPS Apixaban (Eliquis) 5 Mg Tablet, 5 MG PO BID Brimonidine Tartrate/Timolol (Combigan 0.2%-0.5% Eye Drops) 1 Lora Lora, 1 DROP OD BID Duloxetine HCl (Cymbalta) 20 Mg Cap, 20 MG PO BID Folic Acid (Folic Acid) 400 Mcg Tab, 400 MCG PO DAILY Latanoprost (Xalatan) 0.005 % Lora, 1 DROP OD QHS Metoprolol Tartrate (Metoprolol Tartrate) 25 Mg Tab, 25 MG PO BID Multivitamin (Multivitamins) 1 Each Capsule, 1 CAP PO DAILY Pregabalin (Lyrica) 150 Mg Cap, 150 MG PO BID Sodium Chloride (Gladis-128) 5% Oint...g., 1 APLCT OD QPM Sulfasalazine (Sulfasalazine) 500 Mg Tab, 500 MG PO BID Tamsulosin HCl (Flomax) 0.4 Mg Cap, 0.4 MG PO QPM Vitamin D (Vitamin D3) 1,000 Unit Tablet, 1,000 UNITS PO DAILY Scheduled PRN Acetaminophen (Acetaminophen) 500 Mg Tablet, 500 MG PO Q4H PRN for PAIN Allergies Coded Allergies: egg (Verified Allergy, Intermediate, 12/28/18) ciprofloxacin (Verified Allergy, Mild, 3/27/19) A-FIB/CHADSVASC A-FIB History Current/History of A-Fib/PAF?: Yes Current PO Anticoag Therapy: Yes JEFFRY RAMSEY MD Mar 07, 2019 21:37
[2019-03-07] MEDS ORDERED: FUROSEMIDE 40 MG/4 ML VIAL (J1940) IV ONE (21:45)
[2019-03-07] MEDS: LATANOPROST 0.005% OPHTH SOLN 2.5 ML OD SCH (22:14)
[2019-03-08] VITALS (7 sets, daily range): BP systolic 98–118; BP diastolic 58–66
[2019-03-08] MEDS ORDERED: SODIUM CHLORIDE 0.9% 1000ML IV ONE (05:00)
[2019-03-08 05:30] LABS: ABG BASE EXCESS 1.9 (-2.0-2.0); ABG HCO3 27.3 MEQ/L (22.0-26.0); ABG O2 SATURATION 99.2 % (95.0-99.0); ABG PARTIAL PRESSURE CO2 46.6 mmHg (35.0-45.0); ABG PARTIAL PRESSURE O2 162.5 mmHg (75.0-100.0); ABG STANDARD HCO3 26.2 MEQ/L (22.0-26.0); ABG TOTAL CO2 28.8 MEQ/L (23.0-31.0); ABG pH (ARTERIAL) 7.386 UNITS (7.350-7.450)
[2019-03-08 05:37] LABS: HEMATOCRIT 34.7 % (42.0-52.0); HEMOGLOBIN 10.4 g/dl (13.5-17.5); MEAN CORPUSCULAR HEMOGLOBIN 28.4 pg (27.0-33.0); MEAN CORPUSCULAR VOLUME 94.8 fl (80.0-96.0); PLATELET COUNT, AUTOMATED 144 10^3/uL (150-450); RED BLOOD COUNT 3.66 10^6/uL (4.30-6.10); WHITE BLOOD COUNT 6.3 10^3/uL (4.0-10.0)
[2019-03-08 06:03] LABS: BLOOD UREA NITROGEN 14 MG/DL (7-18); CALCIUM LEVEL 7.8 MG/DL (8.8-10.2); CARBON DIOXIDE LEVEL 32 MEQ/L (21-32); CHLORIDE LEVEL 104 MEQ/L (98-107); CREATININE FOR GFR 0.95 MG/DL (0.70-1.30); GLOMERULAR FILTRATION RATE > 60.0 (>35); GLUCOSE, FASTING 79 MG/DL (70-100); POTASSIUM SERUM 4.4 MEQ/L (3.5-5.1); SODIUM LEVEL 140 MEQ/L (136-145)
--- NOTE | 2019-03-08 07:53 | ECGEPIP ---
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
[2019-03-08] MEDS: FUROSEMIDE 40 MG/4 ML VIAL (J1940) IV SCH ×2 (08:59→22:01)
[2019-03-08] MEDS: APIXABAN 5 MG TAB (ELIQUIS) PO SCH ×2 (08:59→22:01)
[2019-03-08] MEDS: DULoxetine 20 MG CAP (CYMBALTA) PO SCH ×2 (08:59→22:01)
[2019-03-08] MEDS: PREGABALIN 75 MG CAP(LYRICA) PO SCH ×2 (08:59→22:01)
[2019-03-08] MEDS: METOPROLOL TART 25 MG TABLET PO SCH ×2 (09:00→22:02)
[2019-03-08] MEDS: sulfaSALAzine 500 MG TABEC PO SCH (09:00)
[2019-03-08] MEDS: TAMSULOSIN 0.4 MG CAP PO SCH (22:01)
[2019-03-08] MEDS: LATANOPROST 0.005% OPHTH SOLN 2.5 ML OD SCH (22:02)
[2019-03-08] MEDS: AZITHROMYCIN INJ 500 MG, VIAL MATE ADAPTER 1 EACH in D5W 250 ML IV SCH (22:02)
--- NOTE | 2019-03-08 22:09 | IPNPDOC ---
Subjective Date Seen The patient was seen on 03/08/19. Subjective Chief Complaint/HPI Pt was evaluated at bedside. No acute distress. No active complaints. General: Reports: Normal Appetite; Denies: Chills, Night Sweats, Fatigue, Malaise Constitutional: Denies: Chills, Fever, Night Sweats Eyes: Denies: Pain, Vision change ENT: Denies: Head Aches, Ear Pain, Dysphagia Skin: Denies: Rash, Lesions, Breakdown Pulmonary: Denies: Dyspnea, Cough Cardiovascular: Denies: Chest Pain, Palpitations, Orthopnea, Paroxysmal Noc. Dyspnea, Lt Headedness Gastrointestinal: Denies: Nausea, Vomiting, Abdominal Pain, Diarrhea, Constipation Genitourinary: Denies: Dysuria, Frequency, Incontinence, Retention Objective Physical Examination General Exam: Positive: Alert, No Acute Distress Eye Exam: Negative: PERRLA, Conjunctiva & lids normal, EOMI, Sclera icteric, Ptosis, Other Eye Symptoms ENT Exam: Positive: Atraumatic, Mucous membr. moist/pink, Pharynx Normal Neck Exam: Positive: Supple; Negative: JVD, thyromegaly Chest Exam: Positive: Clear to auscultation, Normal air movement Heart Exam: Positive: Rate Normal, Regular Rhythm, Normal S1, Normal S2; Negative: Murmurs, Rubs Telemetry: Negative: No significant arrhythmia, Sinus, Atrial fibrillation, Tachycardia, Bradycardia, AV Block, Pause, SV Tach, PVCs, PACs, Asystole, Other Telemetry: Abdomen Exam: Positive: Normal bowel sounds, Soft; Negative: Tenderness, Hepatospenomegaly Male Exam: Positive: Normal Genital Exam Extremity Exam: Positive: Normal pulses; Negative: Clubbing, Cyanosis, Edema Skin Exam: Positive: Nl turgor and temperature; Negative: Rash, Breakdown Assessment /Plan Assessment Pt is 83 y/o M with hx of Afib on Eliquis, presented to ED with SOB found to have lower lobe pneumonia. Pt is on Ceftriaxone/Azithromycin for CAP. Cardiac meds resumed. Pt found to have dysphagia with concerns for aspiration as per the history. Swallow evaluation was requested. 1-CAP improving no clinical distress 2-Dysphagia/Oropharyngeal weakness? f/u swallow evaluation 3-Hx of Afib NL EF Plan/VTE VTE Prophylaxis Ordered?: Yes VS, I&O, 24H, Fishbone Vital Signs/I&O Vital Signs Date Time Temp Pulse Resp B/P (MAP) Pulse Ox O2 Delivery O2 Flow Rate FiO2 03/08/19 22:02 68 112/64 03/08/19 18:00 97.0 16 96 2.0 03/07/19 23:03 Nasal Cannula I&O- Last 24 Hours up to 6 AM 03/08/19 06:00 Intake Total 365 ml Balance 365 ml Laboratory Data 24H LABS Laboratory Tests 2 03/07/19 22:31: Lactic Acid Followup at 4 Hours 3.1*H 03/08/19 05:11: Blood Gas Bicarbonate Standard 26.2H, Arterial Blood pH 7.386, Arterial Blood Partial Pressure CO2 46.6H, Arterial Blood Partial Pressure O2 162.5H, Arterial Blood Total CO2 28.8, Arterial Blood HCO3 27.3H, Arterial Blood Base Excess 1.9, Arterial Blood Oxygen Saturation 99.2H 03/08/19 05:23: Nucleated Red Blood Cells % (auto) 0.0, Anion Gap 4L, Glomerular Filtration Rate > 60.0, Blood Urea Nitrogen 14, Creatinine 0.95, Sodium Level 140, Potassium Level 4.4, Chloride Level 104, Carbon Dioxide Level 32, Calcium Level 7.8L CBC/BMP Laboratory Tests 03/08/19 05:23 Red Blood Count 3.66 L, Mean Corpuscular Volume 94.8, Mean Corpuscular Hemoglobin 28.4, Mean Corpuscular Hemoglobin Concent 30.0 L, Red Cell Distribution Width 17.2 H, Calcium Level 7.8 L Microbiology Microbiology 03/07/19 Blood Culture - Preliminary, Resulted No growth after 24 hours . All specim... 03/07/19 Blood Culture - Preliminary, Resulted No growth after 24 hours . All specim... 03/07/19 Respiratory Virus Panel (PCR) ([facility]) - Final, Complete ARMANDO ZUNIGA MD Mar 08, 2019 22:09
[2019-03-09] MEDS: sulfaSALAzine 500 MG TABEC PO SCH ×3 (00:20→21:00)
[2019-03-09 02:00] VITALS: BP 119/84
[2019-03-09 05:58] LABS: BASO % 0.5 % (0.0-1.0); HEMATOCRIT 34.2 % (42.0-52.0); HEMOGLOBIN 10.3 g/dl (13.5-17.5); LYMPH # 0.9 10^3/uL (1.5-4.5); LYMPH % 14.2 % (24.0-44.0); MEAN CORPUSCULAR HEMOGLOBIN 28.8 pg (27.0-33.0); MEAN CORPUSCULAR HGB CONC 30.1 g/dl (32.0-36.5); MEAN CORPUSCULAR VOLUME 95.5 fl (80.0-96.0); MONO # 0.8 10^3/uL (0.0-0.8); MONO % 12.4 % (0.0-5.0); NEUTROPHILS # 4.4 10^3/uL (1.8-7.7); NEUTROPHILS % 72.6 % (36.0-66.0); PLATELET COUNT, AUTOMATED 139 10^3/uL (150-450); RED BLOOD COUNT 3.58 10^6/uL (4.30-6.10); WHITE BLOOD COUNT 6.1 10^3/uL (4.0-10.0)
[2019-03-09 06:00] VITALS: BP 106/55
[2019-03-09 06:26] LABS: ALBUMIN 2.4 GM/DL (3.2-5.2); ALT/SGPT 18 U/L (12-78); BILIRUBIN,TOTAL 0.5 MG/DL (0.2-1.0); BLOOD UREA NITROGEN 15 MG/DL (7-18); CALCIUM LEVEL 8.3 MG/DL (8.8-10.2); CARBON DIOXIDE LEVEL 34 MEQ/L (21-32); CHLORIDE LEVEL 100 MEQ/L (98-107); CREATININE FOR GFR 0.97 MG/DL (0.70-1.30); GLOMERULAR FILTRATION RATE > 60.0 (>35); GLUCOSE, FASTING 58 MG/DL (70-100); POTASSIUM SERUM 3.6 MEQ/L (3.5-5.1); SODIUM LEVEL 138 MEQ/L (136-145); TOTAL PROTEIN 7.4 GM/DL (6.4-8.2)
[2019-03-09] MEDS: METOPROLOL TART 25 MG TABLET PO SCH ×2 (09:13→21:57)
[2019-03-09] MEDS: FUROSEMIDE 40 MG/4 ML VIAL (J1940) IV SCH ×2 (09:13→21:58)
[2019-03-09] MEDS: PREGABALIN 75 MG CAP(LYRICA) PO SCH ×2 (09:13→21:57)
[2019-03-09] MEDS: DULoxetine 20 MG CAP (CYMBALTA) PO SCH ×2 (09:13→21:57)
[2019-03-09] MEDS: APIXABAN 5 MG TAB (ELIQUIS) PO SCH ×2 (09:13→21:57)
[2019-03-09 10:00] VITALS: BP 116/60
[2019-03-09 14:00] VITALS: BP 100/61
[2019-03-09] MEDS ORDERED: VARIBAR PUDDING 40% w/v 230ML TUBE As Ordered ONE (14:40)
[2019-03-09] MEDS ORDERED: VARIBAR NECTAR 40% w/v 240ML SUSP BTL As Ordered ONE (14:41)
[2019-03-09] MEDS ORDERED: E-Z-PAQUE 96% w/w SUSP 176GM BTL As Ordered ONE (14:41)
--- NOTE | 2019-03-09 14:49 | NUR ---
Recommend NPO pending results MBSS Risa Swallow requested this date to r/o silent aspiration. Addendum: 03/09/19 at 1449 by DALE LOVETT [facility] SP Amended: Links added.
--- NOTE | 2019-03-09 16:52 | NUR ---
Based on the results of the MBS the clinician recommends a pureed diet with honey thickened liquids via spoon. All medication should be crushed in pureed assist. Addendum: 03/09/19 at 1659 by EMILIE CALVERT Amended: Links added.
[2019-03-09 18:00] VITALS: BP 112/62
--- NOTE | 2019-03-09 18:51 | ECHO ---
DATE OF PROCEDURE: 03/09/2019 REFERRING PHYSICIAN: Anneliese Flores MD INDICATION: Congestive heart failure, unspecified. HEIGHT: 175 cm WEIGHT: 73 kg DIMENSIONS: IVS: 1.0 LV: 5.2 LVPW: 1.1 LA: 5.0 Aorta: 3.9 IVC: 2.6 FINDINGS The study is of fair technical quality with rather difficult visualization. The patient is likely in atrial fibrillation with ventricularly paced rhythm. Left ventricle is of normal size. There is grossly preserved left ventricular systolic function with septal wall motion abnormality likely related to underlying pacemaker driven rhythm. Overall EF is probably low normal, I estimate around 50-55% range, but this is based on rather difficult visualization and should not be considered completely reliable. Right ventricle does not appear grossly enlarged. There is severe biatrial enlargement. There is an echo artifact apparent in right-sided heart chambers consistent with pacemaker wire. Aortic valve is tricuspid. It is heavily sclerotic, but mobility is preserved. There are also strong degenerative abnormalities of mitral valve with prominent mitral annular calcification and thickening of mitral leaflets. Mobility seems to be grossly preserved. Tricuspid valve appears normal. Pulmonic valve also appears normal. No pericardial effusion is noted. Inferior vena cava is dilated and there is minimal collapse with respiration indicative of likely very high central venous pressure. Aortic root is borderline dilated at 3.9 cm. Aortic arch and abdominal aorta were poorly seen. Doppler interrogation of aortic valve reveals no stenosis and mild insufficiency. There is approximately moderate or moderate to severe mitral insufficiency. There is trivial mitral stenosis with mean gradient 3 mmHg. There is [id number] tricuspid insufficiency. Calculated pulmonary artery pressure is at minimum in high 50s corresponding to moderately severe pulmonary hypertension. Pulmonic valve exhibits mild insufficiency. Evaluation of diastolic function is inconclusive due to underlying atrial fibrillation. CONCLUSIONS 1. Study is of fair technical quality. 2. Normal LV size with grossly preserved LV systolic function and estimated EF around 50-55%. Septal wall motion abnormality likely due to pacemaker driven rhythm. 3. Right ventricle does not appear grossly dilated. 4. Severe biatrial enlargement. 5. Mild aortic insufficiency. 6. Moderately severe mitral insufficiency, mild mitral stenosis. 7. High central venous pressure and at least moderately severe pulmonary hypertension. COMMENT SBE prophylaxis is not recommended.
[2019-03-09] MEDS: TAMSULOSIN 0.4 MG CAP PO SCH (21:57)
[2019-03-09] MEDS: AZITHROMYCIN INJ 500 MG, VIAL MATE ADAPTER 1 EACH in D5W 250 ML IV SCH (21:58)
[2019-03-09] MEDS: LATANOPROST 0.005% OPHTH SOLN 2.5 ML OD SCH (21:58)
[2019-03-09 22:00] VITALS: BP 112/67
[2019-03-10] VITALS (7 sets, daily range): BP systolic 90–137; BP diastolic 52–76
--- NOTE | 2019-03-10 05:17 | IPNPDOC ---
Text Note Date of Service The patient was seen on 03/09/19. NOTE Chief Complaint/HPI Pt was seen and examined at bedside. Pt is awake and alert with memory deficit at baseline. Pt at bedside. Refers recent swallowing difficulty as well as occasional confusion. General: Reports: Normal Appetite; Denies: Chills, Night Sweats, Fatigue, Malaise Constitutional: Denies: Chills, Fever, Night Sweats Eyes: Denies: Pain, Vision change ENT: Denies: Head Aches, Ear Pain, Dysphagia Skin: Denies: Rash, Lesions, Breakdown Pulmonary: Denies: Dyspnea, Cough Cardiovascular: Denies: Chest Pain, Palpitations, Orthopnea, Paroxysmal Noc. Dyspnea, Lt Headedness Gastrointestinal: Denies: Nausea, Vomiting, Abdominal Pain, Diarrhea, Constipation Genitourinary: Denies: Dysuria, Frequency, Incontinence, Retention Physical Examination General Exam: Positive: Alert, No Acute Distress Eye Exam: Negative: PERRLA, Conjunctiva & lids normal, EOMI, Sclera icteric, Ptosis, Other Eye Symptoms ENT Exam: Positive: Atraumatic, Mucous membr. moist/pink, Pharynx Normal Neck Exam: Positive: Supple; Negative: JVD, thyromegaly Chest Exam: Positive: Clear to auscultation, Normal air movement Heart Exam: Positive: Rate Normal, Regular Rhythm, Normal S1, Normal S2; Negative: Murmurs, Rubs Telemetry: Negative: No significant arrhythmia, Sinus, Atrial fibrillation, Ta chycardia, Bradycardia, AV Block, Pause, SV Tach, PVCs, PACs, Asystole, Other Telemetry: Abdomen Exam: Positive: Normal bowel sounds, Soft; Negative: Tenderness, Hepatospenomegaly Male Exam: Positive: Normal Genital Exam Extremity Exam: Positive: Normal pulses; Negative: Clubbing, Cyanosis, Edema Skin Exam: Positive: Nl turgor and temperature; Negative: Rash, Breakdown Vital Signs Date Time Temp Pulse Resp B/P (MAP) Pulse Ox O2 Delivery O2 Flow Rate FiO2 03/10/19 02:00 98.0 60 20 115/70 (85) 96 2.0 03/09/19 22:00 98.1 66 20 112/67 (82) 95 2.0 03/09/19 21:57 66 112/67 03/09/19 21:00 2.0 03/09/19 18:00 98.1 69 17 112/62 (79) 94 2.0 03/09/19 14:00 98.0 72 17 100/61 (74) 92 2.0 03/09/19 10:00 97.9 67 16 116/60 (78) 98 1.0 03/09/19 09:13 63 106/55 03/09/19 08:00 1.0 03/09/19 06:00 98.0 63 18 106/55 (72) 96 2.0 Intake & Output 03/10/19 06:00 Intake Total 795 ml Output Total 900 ml Balance -105 ml Laboratory Tests 03/09/19 05:31: White Blood Count 6.1, Red Blood Count 3.58L, Hemoglobin 10.3L, Hematocrit 34.2L, Mean Corpuscular Volume 95.5, Mean Corpuscular Hemoglobin 28.8, Mean Corpuscular Hemoglobin Concent 30.1L, Red Cell Distribution Width 17.0H, Platelet Count 139L, Neutrophils (%) (Auto) 72.6H, Lymphocytes (%) (Auto) 14.2L, Monocytes (%) (Auto) 12.4H, Eosinophils (%) (Auto) 0.0, Basophils (%) (Auto) 0.5, Neutrophils # (Auto) 4.4, Lymphocytes # (Auto) 0.9L, Monocytes # (Auto) 0.8, Eosinophils # (Auto) 0.0, Basophils # (Auto) 0.0, Immature Granulocyte % (Auto) 0.3, Nucleated Red Blood Cells % (auto) 0.0, Blood Urea Nitrogen 15, Creatinine 0.97, Sodium Level 138, Potassium Level 3.6, Chloride Level 100, Carbon Dioxide Level 34H, Calcium Level 8.3L, Aspartate Amino Transf (AST/SGOT) 25, Alanine Aminotransferase (ALT/SGPT) 18, Alkaline Phosphatase 68, Total Bilirubin 0.5, Total Protein 7.4, Albumin 2.4L, Anion Gap 4L, Glomerular Filtration Rate > 60.0, Fasting Glucose 58L, Albumin/Globulin Ratio 0.48L Microbiology 03/07/19 Respiratory Virus Panel (PCR) ([facility]) - Final, Complete Current Medications Medications (Trade) Dose Ordered Sig/Jonatan Route PRN Reason Start Time Stop Time Status Last Admin Dose Admin Apixaban (Eliquis) 5 mg BID PO 03/08/19 09:00 03/09/19 21:57 5 MG Azithromycin 500 mg/IV Miscellaneous Supplies 1 each/ Dextrose 255 ml @ 255 mls/hr DAILY@2100 IV 03/07/19 21:00 03/09/19 21:58 255 MLS/HR Duloxetine HCl (Cymbalta) 20 mg BID PO 03/07/19 21:00 03/09/19 21:57 20 MG Furosemide (LASIX injection) 40 mg BID IV 03/08/19 09:00 03/09/19 21:58 40 MG Latanoprost (Xalatan 0.005% Op Soln) 1 drop QHS OD 03/07/19 21:00 03/09/19 21:58 1 DROP Metoprolol Tartrate (Lopressor) 25 mg BID PO 03/07/19 21:00 03/09/19 21:57 25 MG Pregabalin (Lyrica) 150 mg BID PO 03/07/19 21:00 03/09/19 21:57 150 MG Sulfasalazine (Azulfidine Entabs) 500 mg BID PO 03/07/19 21:00 03/09/19 09:13 500 MG Tamsulosin HCl (Flomax) 0.4 mg QPM PO 03/07/19 21:00 03/09/19 21:57 0.4 MG Assessment Pt is 83 y/o M with hx of Afib on Eliquis, presented to ED with SOB found to have lower lobe pneumonia. Pt is on Ceftriaxone/Azithromycin for CAP. Cardiac meds resumed. Pt found to have dysphagia with concerns for aspiration as per the history. Swallow evaluation was requested. ECho reviewed NL EF. 1-CAP improving no clinical distress 2-Dysphagia/Oropharyngeal weakness? f/u swallow evaluation 3-Hx of Afib NL EF VS,Fishhuntere, I+O VS, Madelinee, I+O Laboratory Tests 03/09/19 05:31 Red Blood Count 3.58 L, Mean Corpuscular Volume 95.5, Mean Corpuscular Hemoglobin 28.8, Mean Corpuscular Hemoglobin Concent 30.1 L, Red Cell Distribution Width 17.0 H, Neutrophils (%) (Auto) 72.6 H, Lymphocytes (%) (Auto) 14.2 L, Monocytes (%) (Auto) 12.4 H, Eosinophils (%) (Auto) 0.0, Basophils (%) (Auto) 0.5, Neutrophils # (Auto) 4.4, Lymphocytes # (Auto) 0.9 L, Monocytes # (Auto) 0.8, Eosinophils # (Auto) 0.0, Basophils # (Auto) 0.0, Calcium Level 8.3 L, Aspartate Amino Transf (AST/SGOT) 25, Alanine Aminotransferase (ALT/SGPT) 18, Alkaline Phosphatase 68, Total Bilirubin 0.5, Total Protein 7.4, Albumin 2.4 L Vital Signs Date Time Temp Pulse Resp B/P (MAP) Pulse Ox O2 Delivery O2 Flow Rate FiO2 03/10/19 02:00 98.0 60 20 115/70 (85) 96 2.0 03/07/19 23:03 Nasal Cannula I&O- Last 24 Hours up to 6 AM 03/10/19 06:00 Intake Total 795 ml Output Total 900 ml Balance -105 ml ARMANDO ZUNIGA MD Mar 10, 2019 05:17
[2019-03-10] MEDS: DULoxetine 20 MG CAP (CYMBALTA) PO SCH ×2 (09:00→23:01)
[2019-03-10] MEDS: METOPROLOL TART 25 MG TABLET PO SCH ×2 (09:01→22:59)
[2019-03-10] MEDS: sulfaSALAzine 500 MG TABEC PO SCH ×2 (09:01→22:58)
[2019-03-10] MEDS: PREGABALIN 75 MG CAP(LYRICA) PO SCH ×2 (09:01→22:58)
[2019-03-10] MEDS: APIXABAN 5 MG TAB (ELIQUIS) PO SCH ×2 (09:01→22:58)
[2019-03-10] MEDS: FUROSEMIDE 40 MG/4 ML VIAL (J1940) IV SCH ×2 (09:02→22:59)
--- NOTE | 2019-03-10 09:06 | REP ---
Examination Requested: Cookie Swallow Reason For Exam: Dysphasia, coughing with eating The procedure was performed by JASMIN Clinton, under the direct supervision of Dr. Plaza. The procedure was performed with Jennifer Kent and Lorraine Dailey from speech pathology present. 5 ml aliquots of thin, pudding, honey, soft food, and nectar consistency barium was administered. Aspiration was visualized while the patient drank thin consistency barium. The detailed report of this examination will be provided by speech pathology. 2.2] minutes of fluoroscopy time was utilized for this procedure. Reviewed by JASMIN Pugh 03/09/2019 04:45 P Electronically Signed by Edwin Plaza MD 03/10/2019 08:57 A
[2019-03-10 11:21] LABS: AMORPHOUS SEDIMENT SMALL (NEGATIVE); APPEARANCE, URINE CLOUDY (CLEAR); BACTERIA, URINE AUTO 1+ (NEGATIVE); BILIRUBIN, URINE AUTO NEGATIVE (NEGATIVE); BLOOD, URINE BLOOD NEGATIVE (NEGATIVE); COLOR, URINE YELLOW (YELLOW); GLUCOSE, URINE (UA) AUTO NEGATIVE (NEGATIVE); KETONE, URINE AUTO NEGATIVE (NEGATIVE); LEUKOCYTE ESTERASE, URINE AUTO 3+ (NEGATIVE); MUCUS, URINE SMALL (NEGATIVE); NITRITE, URINE AUTO NEGATIVE (NEGATIVE); PROTEIN, URINE AUTO NEGATIVE (NEGATIVE); RBC, URINE AUTO 23 /HPF (0-3); SPECIFIC GRAVITY URINE AUTO 1.008 (1.002-1.035); SQUAMOUS EPITHELIAL CELL UR AU 0 /HPF (0-6); UROBILINOGEN, URINE AUTO 0.2 mg/dL (0.0-2.0); WBC, URINE AUTO 182 /HPF (0-3)
[2019-03-10] MEDS: NS 1,000 ML IV SCH (18:31)
[2019-03-10] MEDS: cefTRIAXone SOD 1 GM in D5W MINI-BAG PLUS 50 ML IV SCH (19:50)
[2019-03-10] MEDS: TAMSULOSIN 0.4 MG CAP PO SCH (22:58)
[2019-03-10] MEDS: AZITHROMYCIN INJ 500 MG, VIAL MATE ADAPTER 1 EACH in D5W 250 ML IV SCH (22:59)
[2019-03-10] MEDS: LATANOPROST 0.005% OPHTH SOLN 2.5 ML OD SCH (22:59)
--- NOTE | 2019-03-10 23:26 | IPNPDOC ---
Text Note Date of Service The patient was seen on 03/10/19. NOTE Pt was seen and examined at bedside. Pt is delirious with hallucinations possible due to hospital stay/aging/baseline cognitive impairment/infection. Swallow eval completed. U/A is positive. Ceftriaxone added. NS at 60 ml/hr. Subjective: General: Reports: Normal Appetite; Denies: Chills, Night Sweats, Fatigue, Malaise Constitutional: Denies: Chills, Fever, Night Sweats Eyes: Denies: Pain, Vision change ENT: Denies: Head Aches, Ear Pain, Dysphagia Skin: Denies: Rash, Lesions, Breakdown Pulmonary: Denies: Dyspnea, Cough Cardiovascular: Denies: Chest Pain, Palpitations, Orthopnea, Paroxysmal Noc. Dyspnea, Lt Headedness Gastrointestinal: Denies: Nausea, Vomiting, Abdominal Pain, Diarrhea, Constipation Genitourinary: Denies: Dysuria, Frequency, Incontinence, Retention Physical Examination General Exam: Positive: Alert, No Acute Distress Eye Exam: Negative: PERRLA, Conjunctiva & lids normal, EOMI, Sclera icteric, Ptosis, Other Eye Symptoms ENT Exam: Positive: Atraumatic, Mucous membr. moist/pink, Pharynx Normal Neck Exam: Positive: Supple; Negative: JVD, thyromegaly Chest Exam: Positive: Clear to auscultation, Normal air movement Heart Exam: Positive: Rate Normal, Regular Rhythm, Normal S1, Normal S2; Negative: Murmurs, Rubs Telemetry: Negative: No significant arrhythmia, Sinus, Atrial fibrillation, Tachycardia, Bradycardia, AV Block, Pause, SV Tach, PVCs, PACs, Asystole, Other Telemetry: Abdomen Exam: Positive: Normal bowel sounds, Soft; Negative: Tenderness, Hepatospenomegaly Male Exam: Positive: Normal Genital Exam Extremity Exam: Positive: Normal pulses; Negative: Clubbing, Cyanosis, Edema Skin Exam: Positive: Nl turgor and temperature; Negative: Rash, Breakdown Vital Signs Date Time Temp Pulse Resp B/P (MAP) Pulse Ox O2 Delivery O2 Flow Rate FiO2 03/10/19 22:59 65 122/62 03/10/19 22:00 98.2 63 18 124/61 (82) 94 03/10/19 21:30 1.0 03/10/19 18:48 113/63 (80) 03/10/19 18:00 97.4 56 17 90/52 (65) 98 1.0 03/10/19 14:00 97.4 60 18 103/59 (74) 98 2.0 03/10/19 10:00 97.9 60 17 137/76 (96) 98 03/10/19 09:01 66 131/70 03/10/19 08:00 1.0 03/10/19 06:00 98.0 66 20 131/ (43) 96 2.0 Intake & Output 03/11/19 06:00 Intake Total 875 ml Balance 875 ml Laboratory Tests 03/10/19 10:42: Urine Appearance CLOUDYH, Urine Color YELLOW, Urine pH 6.0, Urine Specific [place] 1.008, Urine Protein NEGATIVE, Urine Glucose (UA) NEGATIVE, Urine Ketones NEGATIVE, Urine Urobilinogen 0.2, Urine Bilirubin NEGATIVE, Urine Leukocyte Esterase 3+H, Urine Blood NEGATIVE, Urine Nitrite NEGATIVE, Urine WBC (Auto) 182H, Urine RBC (Auto) 23H, Urine Hyaline Casts (Auto) 1, Urine Bacteria (Auto) 1+H, Urine Squamous Epithelial Cells 0, Urine Amorphous Sediment SMALLH, Urine Mucus (Auto) SMALL, Urine Sperm (Auto) Microbiology 03/07/19 Respiratory Virus Panel (PCR) ([facility]) - Final, Complete Current Medications Medications (Trade) Dose Ordered Sig/Jonatan Route PRN Reason Start Time Stop Time Status Last Admin Dose Admin Apixaban (Eliquis) 5 mg BID PO 03/08/19 09:00 03/10/19 22:58 5 MG Azithromycin 500 mg/IV Miscellaneous Supplies 1 each/ Dextrose 255 ml @ 255 mls/hr DAILY@2100 IV 03/07/19 21:00 03/10/19 22:59 255 MLS/HR Ceftriaxone Sodium 1 gm/ Dextrose 50 ml @ 100 mls/hr Q24H IV 03/10/19 20:00 03/10/19 19:50 100 MLS/HR Duloxetine HCl (Cymbalta) 20 mg BID PO 03/07/19 21:00 03/10/19 23:01 20 MG Furosemide (LASIX injection) 40 mg BID IV 03/08/19 09:00 03/10/19 22:59 40 MG Latanoprost (Xalatan 0.005% Op Soln) 1 drop QHS OD 03/07/19 21:00 03/10/19 22:59 1 DROP Metoprolol Tartrate (Lopressor) 25 mg BID PO 03/07/19 21:00 03/10/19 22:59 25 MG Pregabalin (Lyrica) 150 mg BID PO 03/07/19 21:00 03/10/19 22:58 150 MG Sodium Chloride 1,000 ml @ 60 mls/hr [id number] IV 03/10/19 18:15 03/10/19 18:31 60 MLS/HR Sulfasalazine (Azulfidine Entabs) 500 mg BID PO 03/07/19 21:00 03/10/19 22:58 500 MG Tamsulosin HCl (Flomax) 0.4 mg QPM PO 03/07/19 21:00 03/10/19 22:58 0.4 MG Assessment Pt is 83 y/o M with hx of Afib on Eliquis, presented to ED with SOB found to have lower lobe pneumonia. Pt is on Azithromycin for CAP. Cardiac meds resumed. Pt found to have dysphagia with concerns for aspiration as per the history. Swallow evaluation was requested. ECho reviewed NL EF. 1-CAP improving no clinical distress 2-Dysphagia/Oropharyngeal weakness? f/u swallow evaluation 3-Hx of Afib NL EF 4-UTI, Ceftriaxone was added, f/u cultures 5-Delirium: multifactorial SW/shoe planner for placement Aspiration/Fall precautions VS,Fishbone, I+O VS, Fishbone, I+O Vital Signs Date Time Temp Pulse Resp B/P (MAP) Pulse Ox O2 Delivery O2 Flow Rate FiO2 03/10/19 22:59 65 122/62 03/10/19 18:00 97.4 17 98 1.0 03/07/19 23:03 Nasal Cannula I&O- Last 24 Hours up to 6 AM 03/10/19 06:00 Intake Total 855 ml Output Total 900 ml Balance -45 ml ARMANDO ZUNIGA MD Mar 10, 2019 23:26
[2019-03-11 02:00] VITALS: BP 121/71
[2019-03-11 06:00] VITALS: BP 117/66
[2019-03-11] MEDS: sulfaSALAzine 500 MG TABEC PO SCH ×2 (08:27→20:44)
[2019-03-11] MEDS: APIXABAN 5 MG TAB (ELIQUIS) PO SCH ×2 (08:27→20:45)
[2019-03-11] MEDS: METOPROLOL TART 25 MG TABLET PO SCH ×2 (08:27→20:44)
[2019-03-11] MEDS ORDERED: FUROSEMIDE 40 MG/4 ML VIAL (J1940) IV SCH (09:00)
[2019-03-11 10:00] VITALS: BP 111/65
[2019-03-11 14:00] VITALS: BP 110/65
[2019-03-11] MEDS: NS 1,000 ML IV SCH (15:13)
[2019-03-11 18:00] VITALS: BP 144/71
--- NOTE | 2019-03-11 19:07 | IPNPDOC ---
Text Note Date of Service The patient was seen on 03/11/19. NOTE Pt was seen and examined at bedside. Pt is somnolent and confused. Pt with baseline cognitive impairment exacerbated by acute infectious process and hospital delirium. Otherwise, hemodynamically stable no acute distress. Subjective: General: Denies: Chills, Night Sweats, Fatigue, Malaise Constitutional: Denies: Chills, Fever, Night Sweats Eyes: Denies: Pain, Vision change ENT: Denies: Head Aches, Ear Pain, Dysphagia Skin: Denies: Rash, Lesions, Breakdown Pulmonary: Denies: Dyspnea, Cough Cardiovascular: Denies: Chest Pain, Palpitations, Orthopnea, Paroxysmal Noc. Dyspnea, Lt Headedness Gastrointestinal: Denies: Nausea, Vomiting, Abdominal Pain, Diarrhea, Constipation Genitourinary: Denies: Dysuria, Frequency, Incontinence, Retention Physical Examination General Exam: No Acute Distress Eye Exam: Negative: PERRLA, Conjunctiva & lids normal, EOMI, Sclera icteric, Ptosis, Other Eye Symptoms ENT Exam: Positive: Atraumatic, Mucous membr. moist/pink, Pharynx Normal Neck Exam: Positive: Supple; Negative: JVD, thyromegaly Chest Exam: Positive: Clear to auscultation, Normal air movement Heart Exam: Positive: Rate Normal, Regular Rhythm, Normal S1, Normal S2; Negative: Murmurs, Rubs Telemetry: Negative: No significant arrhythmia, Sinus, Atrial fibrillation, Tachycardia, Bradycardia, AV Block, Pause, SV Tach, PVCs, PACs, Asystole, Other Telemetry: Abdomen Exam: Positive: Normal bowel sounds, Soft; Negative: Tenderness, Hepatospenomegaly Male Exam: Positive: Normal Genital Exam Extremity Exam: Positive: Normal pulses; Negative: Clubbing, Cyanosis, Edema Skin Exam: Positive: Nl turgor and temperature; Negative: Rash, Breakdown Vital Signs Date Time Temp Pulse Resp B/P (MAP) Pulse Ox O2 Delivery O2 Flow Rate FiO2 03/12/19 02:00 97.8 68 18 149/72 (97) 99 1.0 03/11/19 22:00 97.0 60 20 127/61 (83) 100 1.0 03/11/19 21:00 1.0 03/11/19 20:44 70 120/64 03/11/19 18:00 97.0 64 20 144/71 (95) 99 1.0 03/11/19 14:00 98.4 65 18 110/65 (80) 99 1.0 03/11/19 10:00 97.6 60 20 111/65 (80) 96 1.0 03/11/19 08:45 1.0 03/11/19 08:27 62 130/71 Intake & Output 03/12/19 06:00 Intake Total 770 ml Balance 770 ml Microbiology 03/07/19 Respiratory Virus Panel (PCR) ([facility]) - Final, Complete Current Medications Medications (Trade) Dose Ordered Sig/Jonatan Route PRN Reason Start Time Stop Time Status Last Admin Dose Admin Apixaban (Eliquis) 5 mg BID PO 03/08/19 09:00 03/11/19 20:45 5 MG Azithromycin 500 mg/IV Miscellaneous Supplies 1 each/ Dextrose 255 ml @ 255 mls/hr DAILY@2100 IV 03/07/19 21:00 03/11/19 20:45 255 MLS/HR Ceftriaxone Sodium 1 gm/ Dextrose 50 ml @ 100 mls/hr Q24H IV 03/10/19 20:00 03/11/19 19:28 100 MLS/HR Furosemide (LASIX injection) 40 mg DAILY IV 03/11/19 09:00 03/11/19 11:16 40 MG Latanoprost (Xalatan 0.005% Op Soln) 1 drop QHS OD 03/07/19 21:00 03/11/19 20:45 1 DROP Metoprolol Tartrate (Lopressor) 25 mg BID PO 03/07/19 21:00 03/11/19 20:44 25 MG Sodium Chloride 1,000 ml @ 60 mls/hr [id number] IV 03/10/19 18:15 03/11/19 15:13 60 MLS/HR Sulfasalazine (Azulfidine Entabs) 500 mg BID PO 03/07/19 21:00 03/11/19 20:44 500 MG Tamsulosin HCl (Flomax) 0.4 mg QPM PO 03/07/19 21:00 03/11/19 20:45 0.4 MG Assessment Pt is 83 y/o M with hx of Afib on Eliquis, presented to ED with SOB found to have lower lobe pneumonia. Pt is on Azithromycin for CAP. Cardiac meds resumed. Pt found to have dysphagia with concerns for aspiration as per the history. Swallow evaluation was requested. ECho reviewed NL EF. 1-CAP improving no clinical distress 2-Dysphagia/Oropharyngeal weakness? f/u swallow evaluation 3-Hx of Afib NL EF Cont Eliquis 4-UTI, Ceftriaxone was added, f/u cultures 5-Delirium: multifactorial SW/landscape architect and planner for placement Aspiration/Fall precautions VS,Fishbone, I+O VS, Fishbone, I+O Vital Signs Date Time Temp Pulse Resp B/P (MAP) Pulse Ox O2 Delivery O2 Flow Rate FiO2 03/11/19 18:00 97.0 64 20 144/71 (95) 99 1.0 03/07/19 23:03 Nasal Cannula I&O- Last 24 Hours up to 6 AM 03/11/19 06:00 Intake Total 875 ml Balance 875 ml ARMANDO ZUNIGA MD Mar 11, 2019 19:07
[2019-03-11] MEDS: cefTRIAXone SOD 1 GM in D5W MINI-BAG PLUS 50 ML IV SCH (19:28)
[2019-03-11] MEDS: AZITHROMYCIN INJ 500 MG, VIAL MATE ADAPTER 1 EACH in D5W 250 ML IV SCH (20:45)
[2019-03-11] MEDS: LATANOPROST 0.005% OPHTH SOLN 2.5 ML OD SCH (20:45)
[2019-03-11] MEDS: TAMSULOSIN 0.4 MG CAP PO SCH (20:45)
[2019-03-11 22:00] VITALS: BP 127/61
[2019-03-12 02:00] VITALS: BP 149/72
[2019-03-12] MEDS: NS 1,000 ML IV SCH ×3 (03:35→19:40)
[2019-03-12 06:00] VITALS: BP 121/69
--- NOTE | 2019-03-12 06:56 | IPNPDOC ---
Text Note Date of Service The patient was seen on 03/12/19. NOTE Pt was seen and examined at bedside. Pt is somnolent and confused. Pt with baseline cognitive impairment exacerbated by acute infectious process and hospital delirium. Otherwise, hemodynamically stable no acute distress. Subjective: General: Denies: Chills, Night Sweats, Fatigue, Malaise Constitutional: Denies: Chills, Fever, Night Sweats Eyes: Denies: Pain, Vision change ENT: Denies: Head Aches, Ear Pain, Dysphagia Skin: Denies: Rash, Lesions, Breakdown Pulmonary: Denies: Dyspnea, Cough Cardiovascular: Denies: Chest Pain, Palpitations, Orthopnea, Paroxysmal Noc. Dyspnea, Lt Headedness Gastrointestinal: Denies: Nausea, Vomiting, Abdominal Pain, Diarrhea, Constipation Genitourinary: Denies: Dysuria, Frequency, Incontinence, Retention Physical Examination General Exam: No Acute Distress Eye Exam: Negative: PERRLA, Conjunctiva & lids normal, EOMI, Sclera icteric, Ptosis, Other Eye Symptoms ENT Exam: Positive: Atraumatic, Mucous membr. moist/pink, Pharynx Normal Neck Exam: Positive: Supple; Negative: JVD, thyromegaly Chest Exam: Positive: Clear to auscultation, Normal air movement Heart Exam: Positive: Rate Normal, Regular Rhythm, Normal S1, Normal S2; Negative: Murmurs, Rubs Telemetry: Negative: No significant arrhythmia, Sinus, Atrial fibrillation, Tachycardia, Bradycardia, AV Block, Pause, SV Tach, PVCs, PACs, Asystole, Other Telemetry: Abdomen Exam: Positive: Normal bowel sounds, Soft; Negative: Tenderness, Hepatospenomegaly Male Exam: Positive: Normal Genital Exam Extremity Exam: Positive: Normal pulses; Negative: Clubbing, Cyanosis, Edema Skin Exam: Positive: Nl turgor and temperature; Negative: Rash, Breakdown Vital Signs Date Time Temp Pulse Resp B/P (MAP) Pulse Ox O2 Delivery O2 Flow Rate FiO2 03/12/19 10:45 99 03/12/19 10:00 97.5 59 18 110/56 (74) 100 1.0 03/12/19 10:00 99 03/12/19 09:30 100 1.0 03/12/19 08:12 62 120/63 03/12/19 08:00 100 1.0 03/12/19 06:00 97.0 60 18 121/69 (86) 98 1.0 03/12/19 02:00 97.8 68 18 149/72 (97) 99 1.0 03/11/19 22:00 97.0 60 20 127/61 (83) 100 1.0 03/11/19 21:00 1.0 03/11/19 20:44 70 120/64 03/11/19 18:00 97.0 64 20 144/71 (95) 99 1.0 03/11/19 14:00 98.4 65 18 110/65 (80) 99 1.0 Intake & Output 03/12/19 06:00 Intake Total 770 ml Balance 770 ml Microbiology 03/07/19 Respiratory Virus Panel (PCR) ([facility]) - Final, Complete Current Medications Medications (Trade) Dose Ordered Sig/Jonatan Route PRN Reason Start Time Stop Time Status Last Admin Dose Admin Apixaban (Eliquis) 5 mg BID PO 03/08/19 09:00 03/12/19 08:11 5 MG Azithromycin 500 mg/IV Miscellaneous Supplies 1 each/ Dextrose 255 ml @ 255 mls/hr DAILY@2100 IV 03/07/19 21:00 03/11/19 20:45 255 MLS/HR Ceftriaxone Sodium 1 gm/ Dextrose 50 ml @ 100 mls/hr Q24H IV 03/10/19 20:00 03/11/19 19:28 100 MLS/HR Latanoprost (Xalatan 0.005% Op Soln) 1 drop QHS OD 03/07/19 21:00 03/11/19 20:45 1 DROP Metoprolol Tartrate (Lopressor) 25 mg BID PO 03/07/19 21:00 03/12/19 08:12 25 MG Sodium Chloride 1,000 ml @ 80 mls/hr [id number] IV 03/12/19 07:00 03/12/19 07:53 80 MLS/HR Sulfasalazine (Azulfidine Entabs) 500 mg BID PO 03/07/19 21:00 03/12/19 08:11 500 MG Tamsulosin HCl (Flomax) 0.4 mg QPM PO 03/07/19 21:00 03/11/19 20:45 0.4 MG A/P Pt is 83 y/o M with hx of Afib on Eliquis, presented to ED with SOB found to have lower lobe pneumonia. Pt is on Azithromycin for CAP. Cardiac meds resumed. Pt found to have dysphagia with concerns for aspiration as per the history. Swallow evaluation was requested. ECho reviewed NL EF. 1-CAP improving no clinical distress 2-Dysphagia/Oropharyngeal weakness? f/u swallow recommendations 3-Hx of Afib NL EF Cont Eliquis 4-UTI, Ceftriaxone was added, f/u cultures 5-Delirium: multifactorial SW/process planner for placement Aspiration/Fall precautions VS,Fishbone, I+O VS, Fishbone, I+O Vital Signs Date Time Temp Pulse Resp B/P (MAP) Pulse Ox O2 Delivery O2 Flow Rate FiO2 03/12/19 02:00 97.8 68 18 149/72 (97) 99 1.0 03/07/19 23:03 Nasal Cannula I&O- Last 24 Hours up to 6 AM 03/12/19 06:00 Intake Total 770 ml Balance 770 ml ARMANDO ZUNIGA MD Mar 12, 2019 06:56
[2019-03-12] MEDS: sulfaSALAzine 500 MG TABEC PO SCH ×2 (08:11→20:14)
[2019-03-12] MEDS: APIXABAN 5 MG TAB (ELIQUIS) PO SCH ×2 (08:11→20:14)
[2019-03-12] MEDS: METOPROLOL TART 25 MG TABLET PO SCH ×2 (08:12→20:16)
[2019-03-12 10:00] VITALS: BP 110/56
[2019-03-12 14:00] VITALS: BP 120/59
[2019-03-12 18:00] VITALS: BP 145/69
[2019-03-12] MEDS: cefTRIAXone SOD 1 GM in D5W MINI-BAG PLUS 50 ML IV SCH (19:40)
[2019-03-12] MEDS: TAMSULOSIN 0.4 MG CAP PO SCH (20:14)
[2019-03-12] MEDS: AZITHROMYCIN INJ 500 MG, VIAL MATE ADAPTER 1 EACH in D5W 250 ML IV SCH (20:14)
[2019-03-12] MEDS: LATANOPROST 0.005% OPHTH SOLN 2.5 ML OD SCH (20:17)
[2019-03-12 22:00] VITALS: BP 126/76
[2019-03-13] VITALS (7 sets, daily range): BP systolic 144–158; BP diastolic 72–80
[2019-03-13 06:08] LABS: HEMATOCRIT 37.8 % (42.0-52.0); HEMOGLOBIN 11.4 g/dl (13.5-17.5); MEAN CORPUSCULAR HEMOGLOBIN 28.1 pg (27.0-33.0); MEAN CORPUSCULAR HGB CONC 30.2 g/dl (32.0-36.5); MEAN CORPUSCULAR VOLUME 93.3 fl (80.0-96.0); PLATELET COUNT, AUTOMATED 152 10^3/uL (150-450); RED BLOOD COUNT 4.05 10^6/uL (4.30-6.10); WHITE BLOOD COUNT 6.8 10^3/uL (4.0-10.0)
[2019-03-13 06:36] LABS: ALBUMIN 2.7 GM/DL (3.2-5.2); ALT/SGPT 17 U/L (12-78); BILIRUBIN,TOTAL 0.6 MG/DL (0.2-1.0); BLOOD UREA NITROGEN 14 MG/DL (7-18); CALCIUM LEVEL 8.7 MG/DL (8.8-10.2); CARBON DIOXIDE LEVEL 33 MEQ/L (21-32); CHLORIDE LEVEL 100 MEQ/L (98-107); CREATININE FOR GFR 0.85 MG/DL (0.70-1.30); GLOMERULAR FILTRATION RATE > 60.0 (>35); GLUCOSE, FASTING 125 MG/DL (70-100); POTASSIUM SERUM 3.6 MEQ/L (3.5-5.1); SODIUM LEVEL 140 MEQ/L (136-145); TOTAL PROTEIN 8.1 GM/DL (6.4-8.2)
[2019-03-13] MEDS: APIXABAN 5 MG TAB (ELIQUIS) PO SCH ×2 (10:55→20:22)
[2019-03-13] MEDS: sulfaSALAzine 500 MG TABEC PO SCH ×2 (10:55→20:22)
[2019-03-13] MEDS: METOPROLOL TART 25 MG TABLET PO SCH ×2 (10:56→20:22)
[2019-03-13] MEDS ORDERED: PILL CUTTER 1 EACH XX PRN (11:15)
[2019-03-13] MEDS: NS 1,000 ML IV SCH (13:06)
[2019-03-13] MEDS: LevoFLOXacin 500 MG TABLET PO SCH (18:32)
[2019-03-13] MEDS: TAMSULOSIN 0.4 MG CAP PO SCH (20:22)
[2019-03-13] MEDS: LATANOPROST 0.005% OPHTH SOLN 2.5 ML OD SCH (20:22)
[2019-03-13] MEDS: QUEtiapine FUMARATE 25 MG TAB PO SCH (20:22)
--- NOTE | 2019-03-13 23:46 | IPNPDOC ---
Text Note Date of Service The patient was seen on 03/13/19. NOTE Pt was seen and examined at bedside. Pt is somnolent and confused. Pt with baseline cognitive impairment exacerbated by acute infectious process and hospital delirium. Otherwise, hemodynamically stable no acute distress. Subjective: General: Denies: Chills, Night Sweats, Fatigue, Malaise Constitutional: Denies: Chills, Fever, Night Sweats Eyes: Denies: Pain, Vision change ENT: Denies: Head Aches, Ear Pain, Dysphagia Skin: Denies: Rash, Lesions, Breakdown Pulmonary: Denies: Dyspnea, Cough Cardiovascular: Denies: Chest Pain, Palpitations, Orthopnea, Paroxysmal Noc. Dyspnea, Lt Headedness Gastrointestinal: Denies: Nausea, Vomiting, Abdominal Pain, Diarrhea, Consti pation Genitourinary: Denies: Dysuria, Frequency, Incontinence, Retention Physical Examination General Exam: No Acute Distress Eye Exam: Negative: PERRLA, Conjunctiva & lids normal, EOMI, Sclera icteric, Ptosis, Other Eye Symptoms ENT Exam: Positive: Atraumatic, Mucous membr. moist/pink, Pharynx Normal Neck Exam: Positive: Supple; Negative: JVD, thyromegaly Chest Exam: Positive: Clear to auscultation, Normal air movement Heart Exam: Positive: Rate Normal, Regular Rhythm, Normal S1, Normal S2; Negative: Murmurs, Rubs Telemetry: Negative: No significant arrhythmia, Sinus, Atrial fibrillation, Tachycardia, Bradycardia, AV Block, Pause, SV Tach, PVCs, PACs, Asystole, Other Telemetry: Abdomen Exam: Positive: Normal bowel sounds, Soft; Negative: Tenderness, Hepatospenomegaly Male Exam: Positive: Normal Genital Exam Extremity Exam: Positive: Normal pulses; Negative: Clubbing, Cyanosis, Edema Skin Exam: Positive: Nl turgor and temperature; Negative: Rash, Breakdown Vital Signs Date Time Temp Pulse Resp B/P (MAP) Pulse Ox O2 Delivery O2 Flow Rate FiO2 03/14/19 02:00 97.6 66 20 123/65 (84) 91 03/13/19 22:00 97.8 60 18 144/76 (98) 96 03/13/19 20:22 62 149/76 03/13/19 17:30 97.5 60 18 148/80 (102) 94 03/13/19 14:00 98.1 71 19 150/75 (100) 91 03/13/19 10:56 69 145/78 03/13/19 10:53 69 145/78 (100) 03/13/19 10:00 98.1 60 20 158/77 (104) 90 03/13/19 06:00 98.3 68 18 145/72 (96) 96 Intake & Output 03/14/19 06:00 Intake Total 1280 ml Balance 1280 ml Laboratory Tests 03/13/19 05:19: White Blood Count 6.8, Red Blood Count 4.05L, Hemoglobin 11.4L, Hematocrit 3 7.8L, Mean Corpuscular Volume 93.3, Mean Corpuscular Hemoglobin 28.1, Mean Corpuscular Hemoglobin Concent 30.2L, Red Cell Distribution Width 16.8H, Platelet Count 152, Nucleated Red Blood Cells % (auto) 0.0, Blood Urea Nitrogen 14, Creatinine 0.85, Sodium Level 140, Potassium Level 3.6, Chloride Level 100, Carbon Dioxide Level 33H, Calcium Level 8.7L, Aspartate Amino Transf (AST/SGOT) 29, Alanine Aminotransferase (ALT/SGPT) 17, Alkaline Phosphatase 76, Total Bilirubin 0.6, Total Protein 8.1, Albumin 2.7L, Anion Gap 7L, Glomerular Filtration Rate > 60.0, Fasting Glucose 125H, Albumin/Globulin Ratio 0.50L Microbiology 03/07/19 Blood Culture - Final, Complete NO GROWTH AFTER 5 DAYS 03/07/19 Blood Culture - Final, Complete NO GROWTH AFTER 5 DAYS 03/07/19 Respiratory Virus Panel (PCR) ([facility]) - Final, Complete Current Medications Medications (Trade) Dose Ordered Sig/Jonatan Route PRN Reason Start Time Stop Time Status Last Admin Dose Admin Apixaban (Eliquis) 5 mg BID PO 03/08/19 09:00 03/13/19 20:22 5 MG Latanoprost (Xalatan 0.005% Op Soln) 1 drop QHS OD 03/07/19 21:00 03/13/19 20:22 1 DROP Levofloxacin (Levaquin) 500 mg DAILY PO 03/13/19 19:00 03/20/19 18:59 03/13/19 18:32 500 MG Metoprolol Tartrate (Lopressor) 25 mg BID PO 03/07/19 21:00 03/13/19 20:22 25 MG Quetiapine Fumarate (SEROquel) 25 mg QHS PO 03/13/19 21:00 03/13/19 20:22 25 MG Sodium Chloride 1,000 ml @ 80 mls/hr [id number] IV 03/12/19 07:00 03/14/19 02:09 80 MLS/HR Sulfasalazine (Azulfidine Entabs) 500 mg BID PO 03/07/19 21:00 03/13/19 20:22 500 MG Tamsulosin HCl (Flomax) 0.4 mg QPM PO 03/07/19 21:00 03/13/19 20:22 0.4 MG A/P Pt is 83 y/o M with hx of Afib on Eliquis, presented to ED with SOB found to have lower lobe pneumonia. Pt is on Azithromycin for CAP. Cardiac meds resumed. Pt found to have dysphagia with concerns for aspiration as per the history. Swallow evaluation was requested. ECho reviewed NL EF. 1-CAP improving no clinical distress 2-Dysphagia/Oropharyngeal weakness? f/u swallow recommendations 3-Hx of Afib NL EF Cont Eliquis 4-UTI, Ceftriaxone was added, f/u cultures, now Ceft dc switch to PO Levaquin 5-Delirium: multifactorial started on seroquel, may increase dose if needed SW/assistant media planner for placement Aspiration/Fall precautions VS,Fishbone, I+O VS, Fishbone, I+O Laboratory Tests 03/13/19 05:19 Red Blood Count 4.05 L, Mean Corpuscular Volume 93.3, Mean Corpuscular Hemoglobin 28.1, Mean Corpuscular Hemoglobin Concent 30.2 L, Red Cell Distribution Width 16.8 H, Calcium Level 8.7 L, Aspartate Amino Transf (AST/SGOT) 29, Alanine Aminotransferase (ALT/SGPT) 17, Alkaline Phosphatase 76, Total Bilirubin 0.6, Total Protein 8.1, Albumin 2.7 L Vital Signs Date Time Temp Pulse Resp B/P (MAP) Pulse Ox O2 Delivery O2 Flow Rate FiO2 03/13/19 22:00 97.8 60 18 144/76 (98) 96 03/12/19 10:00 1.0 03/07/19 23:03 Nasal Cannula I&O- Last 24 Hours up to AM 03/13/19 06:00 Intake Total 2345 ml Balance 2345 ml ARMANDO ZUNIGA MD Mar 13, 2019 23:46
[2019-03-14] VITALS (7 sets, daily range): BP systolic 123–169; BP diastolic 65–83
[2019-03-14] MEDS: NS 1,000 ML IV SCH ×2 (02:09→15:20)
[2019-03-14] MEDS: APIXABAN 5 MG TAB (ELIQUIS) PO SCH (09:00)
[2019-03-14] MEDS: sulfaSALAzine 500 MG TABEC PO SCH ×2 (09:05→20:58)
[2019-03-14] MEDS: LevoFLOXacin 500 MG TABLET PO SCH (09:06)
[2019-03-14] MEDS: METOPROLOL TART 25 MG TABLET PO SCH ×2 (09:07→20:59)
--- NOTE | 2019-03-14 10:04 | NUR ---
Recommend full assist for feeding, assist for menu selection w/ naturally pureed items, continue honey & puree. Given cognitive status, pt not appropriate for outpatient dysphagia therapy exercise program. Will contact caregivers regarding recommendations for diet modifications. Addendum: 03/14/19 at [address] [facility] Amended: Links added.
[2019-03-14] MEDS ORDERED: OXYMETAZOLINE NASAL SPRAY (AFRIN) ONE (10:15)
--- NOTE | 2019-03-14 15:07 | IPNPDOC ---
Subjective Date Seen The patient was seen on 03/14/19. Subjective Chief Complaint/HPI Patient seen and examined at the bedside. As per the nursing staff, the patient started to have epistasis this morning. This was initially controlled with holding pressure. However, the patient's nose started to drip blood again. The patient's , who is at the bedside denies any episodes of the same in the past. No trauma noted. Eliquis has been held and ENT has been consulted. Objective Physical Examination General Exam: Positive: Alert, Cooperative, No Acute Distress ENT Exam: Positive: Other ENT (Right Nostril noted to be dripped bright red blood. Unable to visualize source upon manual/superficial examination. Pressure clamp placed.) Neck Exam: Negative: JVD Chest Exam: Positive: Clear to auscultation, Normal air movement Heart Exam: Positive: Rate Normal, Regular Rhythm, Normal S1, Normal S2 Telemetry: Positive: Sinus Abdomen Exam: Positive: Soft; Negative: Tenderness Extremity Exam: Negative: Tenderness, Swelling Assessment /Plan Plan/VTE VTE Prophylaxis Ordered?: Yes Plan Community-acquired pneumonia CXR from 03/07 notable for RLL infiltrate Respiratory panel negative Continue Levaquin We will cont to monitor the patient's clinical condition Epistaxis Possibly 2/2 Nasal Cannula, dry nares We will continue to keep pressure and AC has been held Case discussed with Dr. Molina of ENT, he will see the patient in consultation History of atrial fibrillation Continue metoprolol Anticoagulation held secondary to epistasis Dementia, with episodes of delirium On Seroquel BPH Continue Flomax Psoriatic arthritis On sulfasalazine DVT prophylaxis Previously on Eliquis (Held 2/2 Above) Disposition-physical therapy on board. PFS on board. We will continue to follow VS, I&O, 24H, Fishbone Vital Signs/I&O Vital Signs Date Time Temp Pulse Resp B/P (MAP) Pulse Ox O2 Delivery O2 Flow Rate FiO2 03/14/19 10:00 97.6 65 18 156/76 (102) 95 03/12/19 10:00 1.0 I&O- Last 24 Hours up to 6 AM 03/14/19 06:00 Intake Total 2240 ml Balance 2240 ml Laboratory Data Microbiology Microbiology 03/07/19 Blood Culture - Final, Complete NO GROWTH AFTER 5 DAYS 03/07/19 Blood Culture - Final, Complete NO GROWTH AFTER 5 DAYS 03/07/19 Respiratory Virus Panel (PCR) ([facility]) - Final, Complete DANY GAMING MD Mar 14, 2019 15:07
[2019-03-14] MEDS: TAMSULOSIN 0.4 MG CAP PO SCH (20:58)
[2019-03-14] MEDS: LATANOPROST 0.005% OPHTH SOLN 2.5 ML OD SCH (20:59)
[2019-03-14] MEDS: QUEtiapine FUMARATE 25 MG TAB PO SCH (20:59)
[2019-03-15 02:00] VITALS: BP 155/83
[2019-03-15] MEDS: ACETAMINOPHEN TAB 650MG DOSE (2X325MG) PO PRN (03:18)
[2019-03-15] MEDS: NS 1,000 ML IV SCH ×3 (04:44→17:34)
[2019-03-15 06:00] VITALS: BP 160/77
[2019-03-15 08:53] LABS: HEMATOCRIT 36.3 % (42.0-52.0); MEAN CORPUSCULAR HEMOGLOBIN 28.4 pg (27.0-33.0); MEAN CORPUSCULAR HGB CONC 30.3 g/dl (32.0-36.5); MEAN CORPUSCULAR VOLUME 93.8 fl (80.0-96.0); PLATELET COUNT, AUTOMATED 128 10^3/uL (150-450); RED BLOOD COUNT 3.87 10^6/uL (4.30-6.10); WHITE BLOOD COUNT 6.3 10^3/uL (4.0-10.0)
[2019-03-15] MEDS: sulfaSALAzine 500 MG TABEC PO SCH ×4 (09:00→23:14)
[2019-03-15] MEDS: METOPROLOL TART 25 MG TABLET PO SCH ×2 (09:00→23:16)
[2019-03-15 09:07] LABS: BLOOD UREA NITROGEN 21 MG/DL (7-18); CALCIUM LEVEL 8.7 MG/DL (8.8-10.2); CARBON DIOXIDE LEVEL 29 MEQ/L (21-32); CHLORIDE LEVEL 108 MEQ/L (98-107); CREATININE FOR GFR 1.21 MG/DL (0.70-1.30); GLOMERULAR FILTRATION RATE > 60.0 (>35); GLUCOSE, FASTING 97 MG/DL (70-100); POTASSIUM SERUM 3.8 MEQ/L (3.5-5.1); SODIUM LEVEL 145 MEQ/L (136-145)
--- NOTE | 2019-03-15 09:43 | CR ---
DATE OF ADMISSION: 03/14/2019 Talat Herrera is an 83-year-old gentleman who presents with a history of epistaxis. Patient had been admitted for pneumonia and a urinary tract infection. Patient has been on antibiotics. Patient developed some bleeding from his nose. He bleed off and on in the morning. He had no previous history of bleeding. He had been on anticoagulation. He has no history of nasal obstruction. Examination in the hospital showed he was alert and oriented. Examination of his nose and mouth showed no evidence of bleeding. There was some old blood around the outside of his nose. IMPRESSION: Patient has epistaxis which seems to have resolved. No treatment was recommended. I instructed that I be called should he have further problems with bleeding.
[2019-03-15 09:53] VITALS: BP 138/68
[2019-03-15 10:00] VITALS: BP 155/70
[2019-03-15] MEDS: LevoFLOXacin 500 MG TABLET PO SCH ×2 (10:11→13:46)
[2019-03-15 10:49] LABS: C REACTIVE PROTEIN QUANTITATIV 2.34 MG/DL (0.00-0.30); FREE T4 1.11 NG/DL (0.76-1.46)
--- NOTE | 2019-03-15 11:02 | IPNPDOC ---
Subjective Date Seen The patient was seen on 03/15/19. Subjective Chief Complaint/HPI Patient seen and examined at the bedside. He appears to be more confused this morning, and nursing staff notes that he has been more reluctant to get out of bed. Objective Physical Examination General Exam: Positive: No Acute Distress, Other (patient less conversant today, but denies any pain or discomfort) ENT Exam: Positive: Atraumatic, Other ENT (no active bleeding noted from the right nostril today) Neck Exam: Negative: JVD Chest Exam: Positive: Clear to auscultation, Normal air movement Heart Exam: Positive: Rate Normal, Normal S1, Normal S2 Abdomen Exam: Positive: Soft; Negative: Tenderness Extremity Exam: Negative: Tenderness, Swelling Assessment /Plan Plan/VTE VTE Prophylaxis Ordered?: Yes Plan Community-acquired pneumonia CXR from 03/07 notable for RLL infiltrate Respiratory panel negative Continue Levaquin We will cont to monitor the patient's clinical condition Epistaxis, resolved Possibly 2/2 Nasal Cannula, dry nares Dr. Molina of ENT on board, input appreciated Hx of Recurrent Urinary Tract Infection Unfortunately a Urine Culture was not collected during this hospitalization This has been re-ordered, although this is sub-optimal given the fact that the patient has been on Abx. Levaquin should cover organisms that were previously found on Urine Culture We will cont to monitor Confusion possibly 2/2 Metabolic Encephalopathy from PNA/UTI vs Progression of Underlying Dementia The patient's tells me that the patient has been increasingly confused since his hospitalization here in September 2018. She tells me that these episodes usually wax and wane. The patient has been treated for underlying pneumonia and possible urinary tract infection, and his white blood cell count has normalized, and he has remained afebrile. Thus, I am less inclined to believe that this is secondary to an active infectious process. We will order a CT scan of the head, TFT's for further delineation History of atrial fibrillation Continue metoprolol Anticoagulation held secondary to epistasis BPH Continue Flomax Psoriatic arthritis On sulfasalazine DVT prophylaxis Previously on Eliquis (Held 2/2 Above) Disposition-physical therapy on board. PFS on board. We will continue to follow the patient's progression VS, I&O, 24H, Fishbone Vital Signs/I&O Vital Signs Date Time Temp Pulse Resp B/P (MAP) Pulse Ox O2 Delivery O2 Flow Rate FiO2 03/15/19 10:00 98.1 64 20 155/70 (98) 99 03/12/19 10:00 1.0 I&O- Last 24 Hours up to 6 AM 03/15/19 06:00 Intake Total 1820 ml Output Total 125 ml Balance 1695 ml Laboratory Data 24H LABS Laboratory Tests 2 03/15/19 08:19: Nucleated Red Blood Cells % (auto) 0.0, Anion Gap 8, Glomerular Filtration Rate > 60.0, Blood Urea Nitrogen 21H, Creatinine 1.21, Sodium Level 145, Potassium Level 3.8, Chloride Level 108H, Carbon Dioxide Level 29, Calcium Level 8.7L, C- Reactive Protein, Quantitative 2.34H, Thyroid Stimulating Hormone (TSH) 4.420H, Free Thyroxine 1.11 CBC/BMP Laboratory Tests 03/15/19 08:19 Red Blood Count 3.87 L, Mean Corpuscular Volume 93.8, Mean Corpuscular Hemoglobin 28.4, Mean Corpuscular Hemoglobin Concent 30.3 L, Red Cell Distribution Width 17.7 H, Calcium Level 8.7 L Microbiology Microbiology 03/07/19 Blood Culture - Final, Complete NO GROWTH AFTER 5 DAYS 03/07/19 Blood Culture - Final, Complete NO GROWTH AFTER 5 DAYS 03/07/19 Respiratory Virus Panel (PCR) ([facility]) - Final, Complete DANY GAMING MD Mar 15, 2019 11:02
--- NOTE | 2019-03-15 11:21 | REP ---
Chest two views HISTORY: Pneumonia Comparison: 03/07/2019 There is elevation of the right hemidiaphragm. Patchy density is present in the right lower lobe consistent with an infiltrate that is slightly decreased compared to the previous study. Parenchymal densities are present in the left lower lobe consistent with fibrosis. The cardiac silhouette is enlarged. The pulmonary vasculature is normal in appearance. Degenerative change is present in the spine. A cardiac pacemaker is present. IMPRESSION: 1. Right lower lobe infiltrate slightly decreased compared to the previous study. 2. Cardiomegaly. Electronically Signed by Thomas Pan MD 03/15/2019 11:12 A
--- NOTE | 2019-03-15 11:32 | REP ---
CT Head without contrast HISTORY: Altered mental status COMPARISON: 09/03/2018 Areas of decreased attenuation are present in the periventricular and subcortical white matter. This represents small-vessel ischemic disease. There is no intraparenchymal hemorrhage, acute infarct, mass or midline shift. The ventricular system and cortical sulci are dilated consistent with moderate volume loss. There is no extra cerebral collection. There is no fracture. The visualized sinuses are clear. IMPRESSION: 1. Small vessel ischemic disease. 2. Moderate volume loss. Electronically Signed by Thomas Pan MD 03/15/2019 11:25 A
[2019-03-15 14:00] VITALS: BP 154/76
[2019-03-15] MEDS: LATANOPROST 0.005% OPHTH SOLN 2.5 ML OD SCH (21:00)
[2019-03-15 22:00] VITALS: BP 148/84
[2019-03-15] MEDS: TAMSULOSIN 0.4 MG CAP PO SCH (23:14)
[2019-03-16 02:00] VITALS: BP 160/88
[2019-03-16] MEDS: NS 1,000 ML IV SCH (05:18)
[2019-03-16 06:00] VITALS: BP 159/83
[2019-03-16 06:37] LABS: C REACTIVE PROTEIN QUANTITATIV 2.33 MG/DL (0.00-0.30)
[2019-03-16 07:58] LABS: HEMATOCRIT 37.3 % (42.0-52.0); HEMOGLOBIN 11.2 g/dl (13.5-17.5); MEAN CORPUSCULAR HEMOGLOBIN 28.5 pg (27.0-33.0); MEAN CORPUSCULAR VOLUME 94.9 fl (80.0-96.0); PLATELET COUNT, AUTOMATED 132 10^3/uL (150-450); RED BLOOD COUNT 3.93 10^6/uL (4.30-6.10); WHITE BLOOD COUNT 6.5 10^3/uL (4.0-10.0)
[2019-03-16 08:06] LABS: BLOOD UREA NITROGEN 19 MG/DL (7-18); CALCIUM LEVEL 8.1 MG/DL (8.8-10.2); CARBON DIOXIDE LEVEL 30 MEQ/L (21-32); CHLORIDE LEVEL 112 MEQ/L (98-107); CREATININE FOR GFR 1.05 MG/DL (0.70-1.30); GLOMERULAR FILTRATION RATE > 60.0 (>35); GLUCOSE, FASTING 77 MG/DL (70-100); POTASSIUM SERUM 3.6 MEQ/L (3.5-5.1); SODIUM LEVEL 147 MEQ/L (136-145)
[2019-03-16] MEDS: LevoFLOXacin 500 MG TABLET PO SCH (08:17)
[2019-03-16] MEDS: sulfaSALAzine 500 MG TABEC PO SCH ×2 (08:17→21:49)
[2019-03-16] MEDS: METOPROLOL TART 25 MG TABLET PO SCH ×2 (08:18→21:00)
[2019-03-16] MEDS: ACETAMINOPHEN TAB 650MG DOSE (2X325MG) PO PRN ×2 (09:46→16:51)
[2019-03-16 10:00] VITALS: BP 158/81
[2019-03-16] MEDS: D5W/0.45% SODIUM CHLORIDE 1,000 ML IV SCH (11:26)
[2019-03-16 14:00] VITALS: BP 156/82
--- NOTE | 2019-03-16 17:31 | IPNPDOC ---
Subjective Date Seen The patient was seen on 03/16/19. Subjective Chief Complaint/HPI Patient seen and examined at the bedside. He is more lucid today. However, the patient continues to decline by mouth medications and food. He has regressed with physical therapy, and has been displaying behavior more consistent with worsening dementia. Objective Physical Examination General Exam: Positive: No Acute Distress, Other (patient answers questions appropriately when prompted.) ENT Exam: Positive: Atraumatic, Other ENT (no active bleeding noted from the right nostril today) Neck Exam: Negative: JVD Chest Exam: Positive: Clear to auscultation, Normal air movement Heart Exam: Positive: Rate Normal, Normal S1, Normal S2 Abdomen Exam: Positive: Soft; Negative: Tenderness Extremity Exam: Negative: Tenderness, Swelling Assessment /Plan Plan/VTE VTE Prophylaxis Ordered?: Yes Plan Community-acquired pneumonia CXR from 03/07 notable for RLL infiltrate Respiratory panel negative s/p Rocephin/Levaquin course We will cont to monitor the patient's clinical condition Epistaxis, resolved Possibly 2/2 Nasal Cannula, dry nares Dr. Molina of ENT on board, input appreciated Hx of Recurrent Urinary Tract Infection s/p Rocephin/Levaquin course Confusion possibly 2/2 Metabolic Encephalopathy from PNA/UTI vs Progression of Underlying Dementia The patient's tells me that the patient has been increasingly confused since his hospitalization here in September 2018. She tells me that these epis odes usually wax and wane. The patient has been treated for underlying pneumonia and possible urinary tract infection, and his white blood cell count has normalized, and he has remained afebrile. Thus, I am less inclined to believe that this is secondary to an active infectious process. CT scan of the head with no acute findings History of atrial fibrillation Continue metoprolol Anticoagulation held secondary to epistasis BPH Continue Flomax Psoriatic arthritis On sulfasalazine DVT prophylaxis Previously on Eliquis (Held 2/2 Above) Poor Long-Term Prognosis--I had an extensive discussion with the patient's at the bedside this morning. The patient has been refusing his by mouth medic ations, and has not been eating much of his food. I discussed his overall functional decline. The patient's states that he would not want a feeding tube if his by mouth intake does not improve. We will continue to provide the patient supportive treatment and encourage PO intake. Goals of care were discussed, the patient is a DNR/DNI. MOLST form has been signed. VS, I&O, 24H, Fishbone Vital Signs/I&O Vital Signs Date Time Temp Pulse Resp B/P (MAP) Pulse Ox O2 Delivery O2 Flow Rate FiO2 03/16/19 10:00 97.8 62 22 158/81 (106) 93 03/12/19 10:00 1.0 I&O- Last 24 Hours up to 6 AM 03/16/19 06:00 Intake Total 1040 ml Output Total 1325 ml Balance -285 ml Laboratory Data 24H LABS Laboratory Tests 2 03/16/19 05:32: Nucleated Red Blood Cells % (auto) 0.0, Anion Gap 5L, Glomerular Filtration Rate > 60.0, Blood Urea Nitrogen 19H, Creatinine 1.05, Sodium Level 147H, Potassium Level 3.6, Chloride Level 112H, Carbon Dioxide Level 30, Calcium Level 8.1L, C- Reactive Protein, Quantitative 2.33H CBC/BMP Laboratory Tests 03/16/19 05:32 Red Blood Count 3.93 L, Mean Corpuscular Volume 94.9, Mean Corpuscular Hemo globin 28.5, Mean Corpuscular Hemoglobin Concent 30.0 L, Red Cell Distribution Width 17.7 H, Calcium Level 8.1 L Microbiology Microbiology 03/07/19 Blood Culture - Final, Complete NO GROWTH AFTER 5 DAYS 03/07/19 Blood Culture - Final, Complete NO GROWTH AFTER 5 DAYS 03/07/19 Respiratory Virus Panel (PCR) ([facility]) - Final, Complete 03/15/19 Urine Culture - Final, Complete DANY GAMING MD Mar 16, 2019 17:31
[2019-03-16 18:00] VITALS: BP 194/99
[2019-03-16] MEDS: TAMSULOSIN 0.4 MG CAP PO SCH (21:49)
[2019-03-16] MEDS: LATANOPROST 0.005% OPHTH SOLN 2.5 ML OD SCH (21:51)
[2019-03-16 22:00] VITALS: BP 146/86
[2019-03-17] MEDS: ACETAMINOPHEN TAB 650MG DOSE (2X325MG) PO PRN ×3 (00:02→09:03)
[2019-03-17] MEDS: D5W/0.45% SODIUM CHLORIDE 1,000 ML IV SCH ×2 (00:30→13:47)
[2019-03-17 02:00] VITALS: BP 147/82
[2019-03-17 06:00] VITALS: BP 154/76
[2019-03-17 06:05] LABS: HEMATOCRIT 34.5 % (42.0-52.0); HEMOGLOBIN 10.4 g/dl (13.5-17.5); MEAN CORPUSCULAR HEMOGLOBIN 27.7 pg (27.0-33.0); MEAN CORPUSCULAR HGB CONC 30.1 g/dl (32.0-36.5); PLATELET COUNT, AUTOMATED 120 10^3/uL (150-450); RED BLOOD COUNT 3.75 10^6/uL (4.30-6.10); WHITE BLOOD COUNT 9.1 10^3/uL (4.0-10.0)
[2019-03-17 06:26] LABS: BLOOD UREA NITROGEN 18 MG/DL (7-18); CALCIUM LEVEL 8.1 MG/DL (8.8-10.2); CARBON DIOXIDE LEVEL 30 MEQ/L (21-32); CHLORIDE LEVEL 111 MEQ/L (98-107); CREATININE FOR GFR 0.98 MG/DL (0.70-1.30); GLOMERULAR FILTRATION RATE > 60.0 (>35); GLUCOSE, FASTING 115 MG/DL (70-100); POTASSIUM SERUM 3.3 MEQ/L (3.5-5.1); SODIUM LEVEL 147 MEQ/L (136-145)
[2019-03-17] MEDS ORDERED: POTASSIUM CHLORIDE 10 MEQ SR TABLET PO ONE (08:15)
[2019-03-17] MEDS: sulfaSALAzine 500 MG TABEC PO SCH ×4 (08:52→21:06)
[2019-03-17] MEDS: METOPROLOL TART 25 MG TABLET PO SCH ×2 (08:53→21:00)
[2019-03-17 14:00] VITALS: BP 147/70
--- NOTE | 2019-03-17 16:59 | IPNPDOC ---
Subjective Date Seen The patient was seen on 03/17/19. Subjective Chief Complaint/HPI Patient seen and examined at the bedside. No acute overnight events noted. The patient is less confused this morning, but still has not been taking in adequate by mouth diet. Objective Physical Examination General Exam: Positive: No Acute Distress, Other (patient answers questions appropriately when prompted.) ENT Exam: Positive: Atraumatic, Other ENT (no active bleeding noted from the right nostril today) Neck Exam: Negative: JVD Chest Exam: Positive: Clear to auscultation, Normal air movement Heart Exam: Positive: Rate Normal, Normal S1, Normal S2 Abdomen Exam: Positive: Soft; Negative: Tenderness Extremity Exam: Negative: Tenderness, Swelling Assessment /Plan Plan/VTE VTE Prophylaxis Ordered?: Yes Plan Community-acquired pneumonia CXR from 03/07 notable for RLL infiltrate Respiratory panel negative s/p Rocephin/Levaquin course We will cont to monitor the patient's clinical condition Epistaxis, resolved Possibly 2/2 Nasal Cannula, dry nares Dr. Molina of ENT on board, input appreciated Hx of Recurrent Urinary Tract Infection s/p Rocephin/Levaquin course Confusion possibly 2/2 Metabolic Encephalopathy from PNA/UTI vs Progression of Underlying Dementia The patient's tells me that the patient has been increasingly confused since his hospitalization here in September 2018. She tells me that these episodes usually wax and wane. The patient has been treated for underlying pneumonia and possible urinary tract infection, and his white blood cell count has normalized, and he has remained afebrile. Thus, I am less inclined to believe that this is secondary to an active infectious process. CT scan of the head with no acute findings History of atrial fibrillation Continue metoprolol Anticoagulation held secondary to epistasis BPH Continue Flomax Psoriatic arthritis On sulfasalazine DVT prophylaxis Previously on Eliquis (Held 2/2 Above) Disposition-patient continues to display intermittent confusion/delirium consistent with dementia. His by mouth intake has also decreased. We will continue to encourage by mouth intake. Further disposition pending on patient's clinical progress. VS, I&O, 24H, Fishbone Vital Signs/I&O Vital Signs Date Time Temp Pulse Resp B/P (MAP) Pulse Ox O2 Delivery O2 Flow Rate FiO2 03/17/19 14:00 97.5 60 18 147/70 (95) 97 03/12/19 10:00 1.0 I&O- Last 24 Hours up to 6 AM 03/17/19 06:00 Intake Total 1455 ml Output Total 550 ml Balance 905 ml Laboratory Data 24H LABS Laboratory Tests 2 03/17/19 05:28: Nucleated Red Blood Cells % (auto) 0.0, Anion Gap 6L, Glomerular Filtration Rate > 60.0, Blood Urea Nitrogen 18, Creatinine 0.98, Sodium Level 147H, Potassium Level 3.3L, Chloride Level 111H, Carbon Dioxide Level 30, Calcium Level 8.1L CBC/BMP Laboratory Tests 03/17/19 05:28 Red Blood Count 3.75 L, Mean Corpuscular Volume 92.0, Mean Corpuscular Hemog lobin 27.7, Mean Corpuscular Hemoglobin Concent 30.1 L, Red Cell Distribution Width 17.9 H, Calcium Level 8.1 L Microbiology Microbiology 03/07/19 Blood Culture - Final, Complete NO GROWTH AFTER 5 DAYS 03/07/19 Blood Culture - Final, Complete NO GROWTH AFTER 5 DAYS 03/07/19 Respiratory Virus Panel (PCR) ([facility]) - Final, Complete 03/15/19 Urine Culture - Final, Complete DANY GAMING MD Mar 17, 2019 16:59
[2019-03-17] MEDS: TAMSULOSIN 0.4 MG CAP PO SCH (21:06)
[2019-03-17] MEDS: LATANOPROST 0.005% OPHTH SOLN 2.5 ML OD SCH (21:07)
[2019-03-17 22:00] VITALS: BP 139/85
[2019-03-18] MEDS: D5W/0.45% SODIUM CHLORIDE 1,000 ML IV SCH (01:24)
[2019-03-18 02:00] VITALS: BP 136/82
[2019-03-18 06:00] VITALS: BP 157/86
[2019-03-18 06:35] LABS: HEMATOCRIT 36.5 % (42.0-52.0); HEMOGLOBIN 10.9 g/dl (13.5-17.5); MEAN CORPUSCULAR HEMOGLOBIN 27.5 pg (27.0-33.0); MEAN CORPUSCULAR HGB CONC 29.9 g/dl (32.0-36.5); MEAN CORPUSCULAR VOLUME 92.2 fl (80.0-96.0); PLATELET COUNT, AUTOMATED 137 10^3/uL (150-450); RED BLOOD COUNT 3.96 10^6/uL (4.30-6.10); WHITE BLOOD COUNT 8.9 10^3/uL (4.0-10.0)
[2019-03-18 06:51] LABS: BLOOD UREA NITROGEN 14 MG/DL (7-18); CALCIUM LEVEL 8.4 MG/DL (8.8-10.2); CARBON DIOXIDE LEVEL 31 MEQ/L (21-32); CHLORIDE LEVEL 111 MEQ/L (98-107); CREATININE FOR GFR 0.93 MG/DL (0.70-1.30); GLOMERULAR FILTRATION RATE > 60.0 (>35); GLUCOSE, FASTING 108 MG/DL (70-100); POTASSIUM SERUM 3.7 MEQ/L (3.5-5.1); SODIUM LEVEL 145 MEQ/L (136-145)
[2019-03-18] MEDS: METOPROLOL TART 25 MG TABLET PO SCH ×2 (08:53→21:00)
[2019-03-18] MEDS: sulfaSALAzine 500 MG TABEC PO SCH ×2 (08:53→21:02)
[2019-03-18 10:00] VITALS: BP 146/84
--- NOTE | 2019-03-18 10:01 | IPNPDOC ---
Subjective Date Seen The patient was seen on 03/18/19. Subjective Chief Complaint/HPI Patient seen and examined at the bedside this morning. He appears much more awake, alert, and conversant this morning. Does not offer any specific acute complaints. However, is answering questions appropriately. His by mouth intake remains dismal, this was discussed with the patient at the bedside, and he states that he will "try to eat more." Objective Physical Examination General Exam: Positive: Alert, Cooperative, No Acute Distress ENT Exam: Positive: Atraumatic, Mucous membr. moist/pink Neck Exam: Negative: JVD Chest Exam: Positive: Clear to auscultation, Normal air movement Heart Exam: Positive: Rate Normal, Normal S1, Normal S2 Abdomen Exam: Positive: Soft; Negative: Tenderness Male Exam: Positive: Edema (+Scrotal edema. No tenderness to palpation) Extremity Exam: Negative: Tenderness, Swelling Assessment /Plan Plan/VTE VTE Prophylaxis Ordered?: Yes Plan Community-acquired pneumonia, resolved CXR from 03/07 notable for RLL infiltrate Respiratory panel negative s/p Rocephin/Levaquin course We will cont to monitor the patient's clinical condition Epistaxis, resolved Possibly 2/2 Nasal Cannula, dry nares Dr. Molina of ENT on board, input appreciated Hx of Recurrent Urinary Tract Infection s/p Rocephin/Levaquin course Confusion possibly 2/2 Metabolic Encephalopathy from PNA/UTI vs Progression of Underlying Dementia The patient's tells me that the patient has been increasingly confused since his hospitalization here in September 2018. She tells me that these episodes usually wax and wane. The patient has been treated for underlying pneumonia and possible urinary tract infection, and his white blood cell count has normalized, and he has remained afebrile. Thus, I am less inclined to believe that this is secondary to an active infectious process. CT scan of the head with no acute findings History of atrial fibrillation Continue metoprolol Anticoagulation held secondary to epistasis BPH Continue Flomax Psoriatic arthritis On sulfasalazine DVT prophylaxis Previously on Eliquis (Held 2/2 Above) VS, I&O, 24H, Fishbone Vital Signs/I&O Vital Signs Date Time Temp Pulse Resp B/P (MAP) Pulse Ox O2 Delivery O2 Flow Rate FiO2 03/18/19 08:53 60 141/71 03/18/19 06:00 97.4 18 94 03/12/19 10:00 1.0 I&O- Last 24 Hours up to 6 AM 03/18/19 06:00 Intake Total 1120 ml Output Total 0 ml Balance 1120 ml Laboratory Data 24H LABS Laboratory Tests 2 03/18/19 05:36: Nucleated Red Blood Cells % (auto) 0.0, Anion Gap 3L, Glomerular Filtration Rate > 60.0, Blood Urea Nitrogen 14, Creatinine 0.93, Sodium Level 145, Potassium Level 3.7, Chloride Level 111H, Carbon Dioxide Level 31, Calcium Level 8.4L CBC/BMP Laboratory Tests 03/18/19 05:36 Red Blood Count 3.96 L, Mean Corpuscular Volume 92.2, Mean Corpuscular Hemoglobin 27.5, Mean Corpuscular Hemoglobin Concent 29.9 L, Red Cell Distribution Width 18.0 H, Calcium Level 8.4 L Microbiology Microbiology 03/15/19 Urine Culture - Final, Complete DANY GAMING MD Mar 18, 2019 10:01
[2019-03-18 14:00] VITALS: BP 167/81
[2019-03-18 18:00] VITALS: BP 163/78
[2019-03-18] MEDS: TAMSULOSIN 0.4 MG CAP PO SCH (21:02)
[2019-03-18] MEDS: LATANOPROST 0.005% OPHTH SOLN 2.5 ML OD SCH (21:04)
[2019-03-18 22:00] VITALS: BP 161/82
[2019-03-19] VITALS (7 sets, daily range): BP systolic 147–168; BP diastolic 73–86
[2019-03-19 06:38] LABS: HEMATOCRIT 37.5 % (42.0-52.0); HEMOGLOBIN 11.4 g/dl (13.5-17.5); MEAN CORPUSCULAR HEMOGLOBIN 28.3 pg (27.0-33.0); MEAN CORPUSCULAR HGB CONC 30.4 g/dl (32.0-36.5); MEAN CORPUSCULAR VOLUME 93.1 fl (80.0-96.0); PLATELET COUNT, AUTOMATED 139 10^3/uL (150-450); RED BLOOD COUNT 4.03 10^6/uL (4.30-6.10); WHITE BLOOD COUNT 8.4 10^3/uL (4.0-10.0)
[2019-03-19 06:55] LABS: BLOOD UREA NITROGEN 12 MG/DL (7-18); CALCIUM LEVEL 8.5 MG/DL (8.8-10.2); CARBON DIOXIDE LEVEL 30 MEQ/L (21-32); CHLORIDE LEVEL 111 MEQ/L (98-107); CREATININE FOR GFR 0.78 MG/DL (0.70-1.30); GLOMERULAR FILTRATION RATE > 60.0 (>35); GLUCOSE, FASTING 96 MG/DL (70-100); POTASSIUM SERUM 3.6 MEQ/L (3.5-5.1); SODIUM LEVEL 143 MEQ/L (136-145)
[2019-03-19] MEDS: METOPROLOL TART 25 MG TABLET PO SCH ×2 (09:00→20:18)
[2019-03-19] MEDS: sulfaSALAzine 500 MG TABEC PO SCH ×2 (09:53→20:26)
--- NOTE | 2019-03-19 13:47 | IPNPDOC ---
Subjective Date Seen The patient was seen on 03/19/19. Subjective Chief Complaint/HPI Patient seen and examined at the bedside. He is more awake, alert, and conversant this morning. He tells me that he was able to eat most of his b reakfast. According to house staff, the patient has not been as delirious overnight. The patient denies any acute complaints of fevers, chills, chest pain, palpitations, abdominal pain, or any nausea/vomiting/diarrhea. Objective Physical Examination General Exam: Positive: Alert, Cooperative, No Acute Distress ENT Exam: Positive: Atraumatic, Mucous membr. moist/pink Neck Exam: Negative: JVD Chest Exam: Positive: Clear to auscultation, Normal air movement Heart Exam: Positive: Rate Normal, Normal S1, Normal S2 Abdomen Exam: Positive: Soft; Negative: Tenderness Male Exam: Positive: Edema (+Scrotal edema. No tenderness to palpation) Extremity Exam: Negative: Tenderness, Swelling Assessment /Plan Plan/VTE VTE Prophylaxis Ordered?: Yes Plan Community-acquired pneumonia, resolved CXR from 03/07 notable for RLL infiltrate Respiratory panel negative s/p Rocephin/Levaquin course We will cont to monitor the patient's clinical condition Epistaxis, resolved Possibly 2/2 Nasal Cannula, dry nares Dr. Molina of ENT on board, input appreciated Hx of Recurrent Urinary Tract Infection s/p Rocephin/Levaquin course Confusion possibly 2/2 Metabolic Encephalopathy from PNA/UTI vs Progression of Underlying Dementia The patient's tells me that the patient has been increasingly confused since his hospitalization here in September 2018. She tells me that these episodes usually wax and wane. CT scan of the head with no acute findings Mentation appears to be improving over the last few days. History of atrial fibrillation Continue metoprolol Anticoagulation held secondary to epistasis BPH Continue Flomax Psoriatic arthritis On sulfasalazine DVT prophylaxis Previously on Eliquis (Held 2/2 Above) VS, I&O, 24H, Madelinee Vital Signs/I&O Vital Signs Date Time Temp Pulse Resp B/P (MAP) Pulse Ox O2 Delivery O2 Flow Rate FiO2 03/19/19 10:00 97.8 66 18 154/74 (100) 93 I&O- Last 24 Hours up to 6 AM 03/19/19 06:00 Intake Total 2020 ml Output Total 1 ml Balance 2019 ml Laboratory Data 24H LABS Laboratory Tests 2 03/19/19 06:13: Nucleated Red Blood Cells % (auto) 0.0, Anion Gap 2L, Glomerular Filtration Rate > 60.0, Blood Urea Nitrogen 12, Creatinine 0.78, Sodium Level 143, Potassium Level 3.6, Chloride Level 111H, Carbon Dioxide Level 30, Calcium Level 8.5L CBC/BMP Laboratory Tests 03/19/19 06:13 Red Blood Count 4.03 L, Mean Corpuscular Volume 93.1, Mean Corpuscular Hemoglobin 28.3, Mean Corpuscular Hemoglobin Concent 30.4 L, Red Cell Di stribution Width 18.3 H, Calcium Level 8.5 L Microbiology Microbiology 03/15/19 Urine Culture - Final, Complete DANY GAMING MD Mar 19, 2019 13:47
[2019-03-19] MEDS: SENOKOT S TAB PO SCH ×2 (15:33→20:26)
[2019-03-19] MEDS: TAMSULOSIN 0.4 MG CAP PO SCH (20:26)
[2019-03-19] MEDS: LATANOPROST 0.005% OPHTH SOLN 2.5 ML OD SCH (20:27)
[2019-03-20 06:00] VITALS: BP 162/85
[2019-03-20 06:06] LABS: HEMATOCRIT 36.5 % (42.0-52.0); HEMOGLOBIN 11.2 g/dl (13.5-17.5); MEAN CORPUSCULAR HEMOGLOBIN 27.9 pg (27.0-33.0); MEAN CORPUSCULAR HGB CONC 30.7 g/dl (32.0-36.5); PLATELET COUNT, AUTOMATED 148 10^3/uL (150-450); RED BLOOD COUNT 4.01 10^6/uL (4.30-6.10); WHITE BLOOD COUNT 7.2 10^3/uL (4.0-10.0)
[2019-03-20 06:30] LABS: BLOOD UREA NITROGEN 11 MG/DL (7-18); CALCIUM LEVEL 8.3 MG/DL (8.8-10.2); CARBON DIOXIDE LEVEL 31 MEQ/L (21-32); CHLORIDE LEVEL 110 MEQ/L (98-107); CREATININE FOR GFR 0.76 MG/DL (0.70-1.30); GLOMERULAR FILTRATION RATE > 60.0 (>35); GLUCOSE, FASTING 95 MG/DL (70-100); POTASSIUM SERUM 3.6 MEQ/L (3.5-5.1); SODIUM LEVEL 145 MEQ/L (136-145)
[2019-03-20] MEDS: sulfaSALAzine 500 MG TABEC PO SCH ×2 (09:47→21:19)
[2019-03-20] MEDS: SENOKOT S TAB PO SCH ×2 (09:47→21:19)
[2019-03-20] MEDS: METOPROLOL TART 25 MG TABLET PO SCH ×2 (09:47→19:49)
[2019-03-20] MEDS: ACETAMINOPHEN TAB 650MG DOSE (2X325MG) PO PRN (09:48)
[2019-03-20 10:00] VITALS: BP 145/71
--- NOTE | 2019-03-20 12:42 | IPNPDOC ---
Subjective Date Seen The patient was seen on 03/20/19. Subjective Chief Complaint/HPI Patient seen and examined at the bedside. No acute overnight events noted. Patient's PO intake has been improved according to house staff. IVF have been discontinued. Objective Physical Examination General Exam: Positive: Alert, Cooperative, No Acute Distress ENT Exam: Positive: Atraumatic, Mucous membr. moist/pink Neck Exam: Negative: JVD Chest Exam: Positive: Clear to auscultation, Normal air movement Heart Exam: Positive: Rate Normal, Normal S1, Normal S2 Abdomen Exam: Positive: Soft; Negative: Tenderness Male Exam: Positive: Edema (+Scrotal edema. No tenderness to palpation) Extremity Exam: Negative: Tenderness, Swelling Assessment /Plan Plan/VTE VTE Prophylaxis Ordered?: Yes Plan Community-acquired pneumonia, resolved CXR from 03/07 notable for RLL infiltrate Respiratory panel negative s/p Rocephin/Levaquin course We will cont to monitor the patient's clinical condition Epistaxis, resolved Possibly 2/2 Nasal Cannula, dry nares Dr. Molina of ENT on board, input appreciated Hx of Recurrent Urinary Tract Infection s/p Rocephin/Levaquin course Confusion possibly 2/2 Metabolic Encephalopathy from PNA/UTI vs Progression of Underlying Dementia The patient's tells me that the patient has been increasingly confused since his hospitalization here in September 2018. She tells me that these episodes usually wax and wane. CT scan of the head with no acute findings Mentation appears to be improving over the last few days. History of atrial fibrillation Continue metoprolol Anticoagulation held secondary to epistasis BPH Continue Flomax Psoriatic arthritis On sulfasalazine DVT prophylaxis Previously on Eliquis (Held 2/2 Above) VS, I&O, 24H, [place] Vital Signs/I&O Vital Signs Date Time Temp Pulse Resp B/P (MAP) Pulse Ox O2 Delivery O2 Flow Rate FiO2 03/20/19 10:00 97.6 64 20 145/71 (95) 93 I&O- Last 24 Hours up to 6 AM 03/20/19 05:59 Intake Total 450 ml Balance 450 ml Laboratory Data 24H LABS Laboratory Tests 2 03/20/19 05:37: Nucleated Red Blood Cells % (auto) 0.0, Anion Gap 4L, Glomerular Filtration Rate > 60.0, Blood Urea Nitrogen 11, Creatinine 0.76, Sodium Level 145, Potassium L evel 3.6, Chloride Level 110H, Carbon Dioxide Level 31, Calcium Level 8.3L CBC/BMP Laboratory Tests 03/20/19 05:37 Red Blood Count 4.01 L, Mean Corpuscular Volume 91.0, Mean Corpuscular Hemoglobin 27.9, Mean Corpuscular Hemoglobin Concent 30.7 L, Red Cell Distribution Width 18.3 H, Calcium Level 8.3 L Microbiology Microbiology 03/15/19 Urine Culture - Final, Complete DANY GAMING MD Mar 20, 2019 12:42
[2019-03-20 14:00] VITALS: BP 155/72
[2019-03-20 18:00] VITALS: BP 140/70
[2019-03-20] MEDS: TAMSULOSIN 0.4 MG CAP PO SCH (21:19)
[2019-03-20] MEDS: LATANOPROST 0.005% OPHTH SOLN 2.5 ML OD SCH (21:19)
[2019-03-20 22:00] VITALS: BP 158/83
[2019-03-21 02:00] VITALS: BP 158/85
[2019-03-21] MEDS: ACETAMINOPHEN TAB 650MG DOSE (2X325MG) PO PRN ×2 (02:35→09:08)
[2019-03-21 06:00] VITALS: BP 131/84
[2019-03-21 06:20] LABS: HEMATOCRIT 35.9 % (42.0-52.0); MEAN CORPUSCULAR HEMOGLOBIN 27.7 pg (27.0-33.0); MEAN CORPUSCULAR HGB CONC 30.6 g/dl (32.0-36.5); MEAN CORPUSCULAR VOLUME 90.4 fl (80.0-96.0); PLATELET COUNT, AUTOMATED 147 10^3/uL (150-450); RED BLOOD COUNT 3.97 10^6/uL (4.30-6.10)
[2019-03-21 06:41] LABS: BLOOD UREA NITROGEN 12 MG/DL (7-18); CALCIUM LEVEL 8.4 MG/DL (8.8-10.2); CARBON DIOXIDE LEVEL 31 MEQ/L (21-32); CHLORIDE LEVEL 110 MEQ/L (98-107); CREATININE FOR GFR 0.76 MG/DL (0.70-1.30); GLOMERULAR FILTRATION RATE > 60.0 (>35); GLUCOSE, FASTING 99 MG/DL (70-100); POTASSIUM SERUM 3.6 MEQ/L (3.5-5.1); SODIUM LEVEL 145 MEQ/L (136-145)
[2019-03-21] MEDS: SENOKOT S TAB PO SCH ×2 (09:07→20:55)
[2019-03-21] MEDS: sulfaSALAzine 500 MG TABEC PO SCH ×2 (09:08→20:55)
[2019-03-21] MEDS: METOPROLOL TART 25 MG TABLET PO SCH ×2 (09:08→21:00)
[2019-03-21 10:00] VITALS: BP 175/84
--- NOTE | 2019-03-21 10:46 | NUR ---
Recommend repeat MBSS Cookie Swallow d/t concern for silent aspiration. Addendum: 03/21/[address] [facility] Amended: Links added.
[2019-03-21 14:00] VITALS: BP 160/82
--- NOTE | 2019-03-21 18:37 | IPNPDOC ---
Subjective Date Seen The patient was seen on 03/21/19. Subjective Chief Complaint/HPI -year-old male admitted with pneumonia and failure to thrive. General: Reports: ROS Unobtainable (the patient is oriented principally to self and is not especially communicative today) Objective Physical Examination General Exam: Positive: Mild Distress Eye Exam: Negative: PERRLA, Conjunctiva & lids normal, EOMI, Sclera icteric, Ptosis, Other Eye Symptoms ENT Exam: Positive: Atraumatic, Mucous membr. moist/pink Neck Exam: Positive: Supple, thyromegaly; Negative: JVD Chest Exam: Positive: Clear to auscultation, Normal air movement, Other (bilateral coarse breath sounds) Heart Exam: Positive: Rate Normal, Regular Rhythm, Normal S1, Normal S2 Abdomen Exam: Positive: Normal bowel sounds, Soft (minimal scrotal edema and erythema); Negative: Tenderness Male Exam: Positive: Edema (+Scrotal edema. No tenderness to palpation) Extremity Exam: Negative: Clubbing, Cyanosis, Edema, Normal pulses, Tenderness, Swelling, Other Skin Exam: Positive: Nl turgor and temperature Neuro Exam: Positive: Cranial Nerves 3-12 NL (unable to otherwise fully assess ed due to debility) Psych Exam: Positive: Other (primarily, oriented to self, memory and cognition deficits present) Assessment /Plan Problems (1) Constipation Permanent Comment: Patient has been placed on more aggressive bowel care plan Last Edited By: Krystal Corona MD on Mar 21, 2019 18:33 Status: Acute (2) Pneumonia Permanent Comment: Overall, this appears to be resolving Last Edited By: Krystal Corona MD on Mar 21, 2019 18:33 Status: Acute (3) Acute renal failure Permanent Comment: This appears to have resolved Last Edited By: Krystal Corona MD on Mar 21, 2019 18:34 Status: Resolved (4) Acute urinary retention Permanent Comment: Patient continues with I & O cath bladder draining while we evaluate him. Bladder scan shows retention of up to 300 mL's. We may need to consider placing indwelling catheter. Last Edited By: Krystal Corona MD on Mar 21, 2019 18:36 Status: Acute Plan/VTE VTE Prophylaxis Ordered?: Yes VS, I&O, 24H, Fishbone Vital Signs/I&O Vital Signs Date Time Temp Pulse Resp B/P (MAP) Pulse Ox O2 Delivery O2 Flow Rate FiO2 03/21/19 14:00 97.8 65 26 160/82 (108) 95 I&O- Last 24 Hours up to 6 AM 03/21/19 06:00 Intake Total 470 ml Output Total 500 ml Balance -30 ml Laboratory Data 24H LABS Laboratory Tests 2 03/21/19 05:30: Nucleated Red Blood Cells % (auto) 0.0, Anion Gap 4L, Glomerular Filtration Rate > 60.0, Blood Urea Nitrogen 12, Creatinine 0.76, Sodium Level 145, Potassium Level 3.6, Chloride Level 110H, Carbon Dioxide Level 31, Calcium Level 8.4L CBC/BMP Laboratory Tests 03/21/19 05:30 Red Blood Count 3.97 L, Mean Corpuscular Volume 90.4, Mean Corpuscular Hemoglobin 27.7, Mean Corpuscular Hemoglobin Concent 30.6 L, Red Cell Distribution Width 18.0 H, Calcium Level 8.4 L Microbiology Microbiology 03/15/19 Urine Culture - Final, Complete KRYSTAL CORONA MD Mar 21, 2019 18:37
[2019-03-21] MEDS: TAMSULOSIN 0.4 MG CAP PO SCH (20:56)
[2019-03-21] MEDS: LATANOPROST 0.005% OPHTH SOLN 2.5 ML OD SCH (21:01)
[2019-03-21 22:00] VITALS: BP 150/50
[2019-03-22 02:00] VITALS: BP 140/80
[2019-03-22 06:00] VITALS: BP 160/70
[2019-03-22 06:05] LABS: HEMATOCRIT 38.1 % (42.0-52.0); HEMOGLOBIN 11.6 g/dl (13.5-17.5); MEAN CORPUSCULAR HEMOGLOBIN 27.6 pg (27.0-33.0); MEAN CORPUSCULAR HGB CONC 30.4 g/dl (32.0-36.5); MEAN CORPUSCULAR VOLUME 90.5 fl (80.0-96.0); PLATELET COUNT, AUTOMATED 172 10^3/uL (150-450); RED BLOOD COUNT 4.21 10^6/uL (4.30-6.10); WHITE BLOOD COUNT 7.2 10^3/uL (4.0-10.0)
[2019-03-22 06:30] LABS: BLOOD UREA NITROGEN 11 MG/DL (7-18); CALCIUM LEVEL 8.5 MG/DL (8.8-10.2); CARBON DIOXIDE LEVEL 33 MEQ/L (21-32); CHLORIDE LEVEL 109 MEQ/L (98-107); CREATININE FOR GFR 0.79 MG/DL (0.70-1.30); GLOMERULAR FILTRATION RATE > 60.0 (>35); GLUCOSE, FASTING 114 MG/DL (70-100); POTASSIUM SERUM 3.8 MEQ/L (3.5-5.1); SODIUM LEVEL 146 MEQ/L (136-145)
[2019-03-22] MEDS: METOPROLOL TART 25 MG TABLET PO SCH ×2 (09:00→20:56)
[2019-03-22 10:00] VITALS: BP 150/65
[2019-03-22] MEDS: ACETAMINOPHEN TAB 650MG DOSE (2X325MG) PO PRN (11:16)
[2019-03-22] MEDS: SENOKOT S TAB PO SCH ×2 (11:16→20:55)
[2019-03-22] MEDS: sulfaSALAzine 500 MG TABEC PO SCH ×2 (11:16→20:55)
[2019-03-22] MEDS: MOM 30ML SUSPENSION UDC PO PRN ×2 (11:16→18:00)
[2019-03-22 14:00] VITALS: BP 160/72
--- NOTE | 2019-03-22 15:16 | NUR ---
Recommend continue pureed solids and honey thick liquids by spoon. Full assistance for feeding in upright position and OOB as tolerated. Recommend medications crushed in puree assist. Recommend MD consider repeat Chest X-ray. Pt tolerated thin liquids, nectar thick liquids, pureed solids, and soft solids demonstrating mild-moderate oropharyngeal phase dysphagia characterized by ineffective mastication w/ poor dentition, poor bolus control, premature spillage into bilateral pyriforms, and swallow delay. Pt's safety of PO intake is limited by cognition, positioning, fatigue, and bolus size. Please continue w/ current diet recommendations pending [employer]'s assessment of meal tolerance, education to staff/pt/family on safe feeding strategies, and results of repeat Chest X-Ray. Addendum: 03/22/[address] [facility] Amended: Links added.
--- NOTE | 2019-03-22 17:13 | IPNPDOC ---
Date Seen The patient was seen on 03/22/19. Progress Note SUBJECTIVE: This is a 83-year-old male was admitted with pneumonia and failure to thrive. Current concerns are that the patient may have aspiration. He has also had difficulty with urinary retention. This is apparently chronic. He had had a Dale catheter in the past. He has been undergoing I & O cathing. He had significant residual. Indwelling Dale catheter has been re-placed. OBJECTIVE PHYSICAL EXAMINATION: VITAL SIGNS: Please see below. GENERAL: Frail-appearing, lethargic HEENT: Neck is moderately supple, oral mucosa is tacky CARDIOVASCULAR: Regular rate and rhythm with a normal S1 and S2. I do not appreciate a murmur. RESPIRATORY: Patient has good air movement, but does have occasional coarse breath sounds, no active cough. ABDOMINAL: Abdomen is soft with no central obesity, otherwise benign to exam EXTREMITIES: . Extremities show no peripheral edema, note is made of joint changes consistent with arthritis NEUROLOGICAL: Cranial nerves II through XII are grossly intact to function, otherwise patient is weak and fatigued and does not move much PSYCHOLOGICAL: , Oriented, principally to self LABORATORY DATA, IMAGING STUDIES, MICROBIOLOGY: Please see below. Echocardiogram: The patient did have an echocardiogram back on March 07, showing ejection fraction of 50-55% with biatrial enlargement.Made a moderately severe mitral insufficiency and moderately severe pulmonary hypertension. Pulmonary artery pressures are said to be in the 50s.. DVT prophylaxis ordered?: Y ASSESSMENT AND PLAN: 1. Pneumonia--this appears to be resolving. 2. Acute renal failure--this appears to have resolved. 3. Acute urinary retention--the patient had a history of such with prior placement of indwelling Dale catheter. He was also on Flomax. The Dale catheter has been replaced and patient remains on Flomax. 4. Constipation--the patient had been given milk of magnesia in addition to his other bowel care medications, which he did not receive; we are making sure he receives it today 5. Possible aspiration--april melendrez has expressed concerns regarding his destiny lity to swallow. He is to be reassessed by swallow eval or "cookie swallow". He has had increased O2 requirement, and so we are titrating his oxygen. DISPOSITION: The patient will eventually require placement in [facility] or long-term care.. VS, I&O, 24H, Fishbone Vital Signs/I&O Vital Signs Date Time Temp Pulse Resp B/P (MAP) Pulse Ox O2 Delivery O2 Flow Rate FiO2 03/22/19 14:00 98.2 68 18 160/72 (101) 94 2.0 I&O- Last 24 Hours up to 6 AM 03/22/19 06:00 Intake Total 590 ml Output Total 700 ml Balance -110 ml Laboratory Data 24H LABS Laboratory Tests 2 03/22/19 05:35: Nucleated Red Blood Cells % (auto) 0.0, Anion Gap 4L, Glomerular Filtration Rate > 60.0, Blood Urea Nitrogen 11, Creatinine 0.79, Sodium Level 146H, Potassium Level 3.8, Chloride Level 109H, Carbon Dioxide Level 33H, Calcium Level 8.5L CBC/BMP Laboratory Tests 03/22/19 05:35 Red Blood Count 4.21 L, Mean Corpuscular Volume 90.5, Mean Corpuscular Hemoglobin 27.6, Mean Corpuscular Hemoglobin Concent 30.4 L, Red Cell Distrib ution Width 18.0 H, Calcium Level 8.5 L Microbiology Microbiology 03/15/19 Urine Culture - Final, Complete YESI SANCHEZ MD Mar 22, 2019 17:12
[2019-03-22 18:00] VITALS: BP 155/70
[2019-03-22] MEDS: TAMSULOSIN 0.4 MG CAP PO SCH (20:55)
[2019-03-22] MEDS: LATANOPROST 0.005% OPHTH SOLN 2.5 ML OD SCH (20:56)
[2019-03-22 22:00] VITALS: BP 170/68
[2019-03-23] MEDS: MOM 30ML SUSPENSION UDC PO PRN ×2 (00:46→06:29)
[2019-03-23 02:00] VITALS: BP 164/79
[2019-03-23 06:00] VITALS: BP 140/65
[2019-03-23 06:39] LABS: HEMATOCRIT 38.7 % (42.0-52.0); HEMOGLOBIN 11.7 g/dl (13.5-17.5); MEAN CORPUSCULAR HEMOGLOBIN 27.6 pg (27.0-33.0); MEAN CORPUSCULAR HGB CONC 30.2 g/dl (32.0-36.5); MEAN CORPUSCULAR VOLUME 91.3 fl (80.0-96.0); PLATELET COUNT, AUTOMATED 170 10^3/uL (150-450); RED BLOOD COUNT 4.24 10^6/uL (4.30-6.10); WHITE BLOOD COUNT 7.2 10^3/uL (4.0-10.0)
[2019-03-23 07:01] LABS: BLOOD UREA NITROGEN 12 MG/DL (7-18); CALCIUM LEVEL 8.5 MG/DL (8.8-10.2); CARBON DIOXIDE LEVEL 35 MEQ/L (21-32); CHLORIDE LEVEL 107 MEQ/L (98-107); CREATININE FOR GFR 0.82 MG/DL (0.70-1.30); GLOMERULAR FILTRATION RATE > 60.0 (>35); GLUCOSE, FASTING 107 MG/DL (70-100); SODIUM LEVEL 145 MEQ/L (136-145)
--- NOTE | 2019-03-23 08:52 | REP ---
Examination Requested: Cookie Swallow Reason For Exam: Aspiration The procedure was performed by JASMIN Clinton, under the direct supervision of Dr. Forte. The procedure was performed with [Gloria Hi /Jennifer Kent /Lorraine Dailey] from speech pathology present. 5 ml aliquots of thin, pudding, mixed fruit, soft food, and nectar consistency barium was administered. Flash penetration without aspiration was observed with nectar thick consistency barium. The detailed report of this examination will be provided by speech pathology. 3.1 minutes of fluoroscopy time was utilized for this procedure. Reviewed by JASMIN Pugh 03/22/2019 04:16 P Electronically Signed by Edwin Forte MD 03/23/2019 08:44 A
[2019-03-23 09:04] VITALS: BP 134/74
[2019-03-23] MEDS: sulfaSALAzine 500 MG TABEC PO SCH (09:04)
[2019-03-23] MEDS: SENOKOT S TAB PO SCH (09:04)
[2019-03-23] MEDS: METOPROLOL TART 25 MG TABLET PO SCH (09:04)
--- NOTE | 2019-03-23 09:25 | NUR ---
Recommend upgrade thin liquids via Provale cup only to control for small sips. Continue pureed solids. High pro oatmeal w/ brown sugar OK to increase PO intake as pt safely tolerates this minimally textured option. Pt is dependent for feeding & requires assistance for upright positioning. Assist w/ oral care 3x/day. Addendum: 03/23/[address] [facility] Amended: Links added.
[2019-03-23 10:00] VITALS: BP 140/68
[2019-03-23] MEDS ORDERED: FLEET ENEMA PR PRN (10:45)
[2019-03-23] MEDS ORDERED: ACET1TAB55 PO (12:21)
[2019-03-23] MEDS ORDERED: SENN-52 PO (12:21)
--- NOTE | 2019-03-23 12:56 | DS.PDOC ---
Discharge Summary General Date of Admission Mar 07, 2019 at 21:05 Date of Discharge MARCH 23, 2019 Specialist/Consultants Involve: SAIMA BROWNE MD Discharge Summary PROCEDURES PERFORMED DURING STAY: None. ADMITTING DIAGNOSES: 1. Right lower lobe pneumonia. DISCHARGE DIAGNOSES: 1. Right lower lobe pneumonia resolved-likely due to aspiration, chronic atrial fibrillation, episode of epistaxis, urinary retention, benign prostatic hypertrophy, psoriatic arthritis, new finding of pulmonary hypertension, dysphagia with aspiration COMPLICATIONS/CHIEF COMPLAINT: Pneumonia; Pulmonary Infiltrates. HOSPITAL COURSE: This an 83-year-old male who had had shortness of breath and cough for a couple weeks prior to admission. Upon evaluation in the emergency room he was found to have a right lower lobe infiltrate and [place] 9814. He did not have fever or leukocytosis. He was admitted for treatment of pneumonia. This appeared to have been community-acquired. The patient was admitted to the medical floor. He was placed on empiric antibiotics in the form of ceftriaxone and azithromycin. His coarse breath sounds and cough did improve significantly. His transition to oral agents and completed his antibiotic treatment course on Levaquin. He does not have a residual oxygen requirement. He is intolerant of activity and ongoing physical and occupational therapy are recommended in a intermediate setting. Patient is on chronic anticoagulation with Coumadin for his atrial fibrillation. The patient developed an episode of epistaxis during the hospital stay. His Coumadin was stopped. His bleeding is stopped as well and did not recur. He was evaluated by ENT services and did not require further intervention. Patient has been changed over to Eliquis rather than Coumadin at discharge. In the past the patient had had a chronic indwelling Dale catheter. In the interim it had been removed. Patient had difficulty with urinary retention. He does have underlying prosthetic hypertrophy. Initially the patient was undergoing I & O cathing. He had residuals greater than 300 mL and so indwelling Dale catheter was re-placed. The patient was resumed on his usual therapy of Flomax. The patient exhibited limited swallow ability. The patient underwent swallow evaluation by speech therapy services. He does show signs of aspiration and this may be contributory to development of pneumonia. Recommendations are for pureed solids with nectar thick liquids administered by a volume-limiting cup. He will need supervision and assistance with eating. The patient did have some difficulty with constipation. He was initially poorly responsive to senna. He had an effective bowel movement with fleets enema.. DISCHARGE MEDICATIONS: Please see below. ALLERGIES: Please see below. PHYSICAL EXAMINATION ON DISCHARGE: VITAL SIGNS: Please see below. 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 I do not appreciate a murmur. RESPIRATORY: Patient has good air movement, but does have occasional coarse breath sounds, no active cough. ABDOMINAL: Abdomen is soft with no central obesity, otherwise benign to exam EXTREMITIES: . Extremities show no peripheral edema, note is made of joint changes consistent with arthritis NEUROLOGICAL: Cranial nerves II through XII are grossly intact to function, otherwise patient is weak and fatigued and does not move much PSYCHOLOGICAL: Oriented principally to self LABORATORY DATA: Please see below. ACTIVITY: As tolerated with assistance. DIET: Pureed solids, nectar-thick liquids DISCHARGE PLAN: The patient is otherwise stable for discharge to intermediate. He'll have ongoing physical, occupational and speech therapy services. Again, he is on a dysphagia diet. Medications are as listed below. He will follow up with the medical records tech at his intermediate facility and with his primary care provider Warner Lerma within 2 weeks. DISPOSITION: . DISCHARGE INSTRUCTIONS: DISCHARGE CONDITION: Stable. TIME SPENT ON DISCHARGE: Greater than 40 minutes. Vital Signs/I&Os Vital Signs Date Time Temp Pulse Resp B/P (MAP) Pulse Ox O2 Delivery O2 Flow Rate FiO2 03/23/19 10:00 98.4 64 20 140/68 (92) 91 03/22/19 14:00 2.0 I&O- Last 24 Hours up to 6 AM 03/23/19 06:00 Intake Total 510 ml Output Total 550 ml Balance -40 ml Laboratory Data Labs 24H Laboratory Tests 2 03/23/19 06:19: Nucleated Red Blood Cells % (auto) 0.0, Anion Gap 3L, Glomerular Filtration Rate > 60.0, Blood Urea Nitrogen 12, Creatinine 0.82, Sodium Level 145, Potassium Level 4.0, Chloride Level 107, Carbon Dioxide Level 35H, Calcium Level 8.5L CBC/BMP Laboratory Tests 03/23/19 06:19 Red Blood Count 4.24 L, Mean Corpuscular Volume 91.3, Mean Corpuscular Hemoglobin 27.6, Mean Corpuscular Hemoglobin Concent 30.2 L, Red Cell Distribution Width 18.1 H, Calcium Level 8.5 L Microbiology Microbiology 03/15/19 Urine Culture - Final, Complete Discharge Medications Scheduled Acetaminophen/Pamabrom (Cramp Tablet) 1 Each Tablet, 1 TAB PO QWEEK, (Reported) TAKES ON TUESDAYS FOR LEG CRAMPS Apixaban (Eliquis) 5 Mg Tablet, 5 MG PO BID, (Reported) Brimonidine Tartrate/Timolol (Combigan 0.2%-0.5% Eye Drops) 1 Lora Lora, 1 DROP OD BID, (Reported) Duloxetine HCl (Cymbalta) 20 Mg Cap, 20 MG PO BID, (Reported) Folic Acid (Folic Acid) 400 Mcg Tab, 400 MCG PO DAILY, (Reported) Latanoprost (Xalatan) 0.005 % Lora, 1 DROP OD QHS, (Reported) Metoprolol Tartrate (Metoprolol Tartrate) 25 Mg Tab, 25 MG PO BID, (Reported) Multivitamin (Multivitamins) 1 Each Capsule, 1 CAP PO DAILY, (Reported) Pregabalin (Lyrica) 150 Mg Cap, 150 MG PO BID, (Reported) Sennosides/Docusate Sodium (Senna Plus Tablet) 1 Each Tablet, 1 TAB PO BID Sodium Chloride (Gladis-128) 5% Oint...g., 1 APLCT OD QPM, (Reported) Sulfasalazine (Sulfasalazine) 500 Mg Tab, 500 MG PO BID, (Reported) Tamsulosin HCl (Flomax) 0.4 Mg Cap, 0.4 MG PO QPM, (Reported) Vitamin D (Vitamin D3) 1,000 Unit Tablet, 1,000 UNITS PO DAILY, (Reported) Scheduled PRN Acetaminophen (Acetaminophen) 325 Mg Tablet, 650 MG PO Q6HP PRN for PAIN OR FEV ER Allergies Coded Allergies: egg (Verified Allergy, Intermediate, 12/28/18) ciprofloxacin (Verified Allergy, Mild, HALLUCINATIONS, 03/13/19) YESI SANCHEZ MD Mar 23, 2019 12:56
== END 2019-03-23 13:10 | DRG 178 ==
LOC: M ED 17:03 → M ED INP 21:05 → M MSPAV 03-08 13:24
PROVIDERS: ADMIT Student in an Organized Health Care Education/Training Program; ATTEND Internal Medicine
DX: J69.0 Pneumonitis due to inhalation of food and vomit (principal); N39.0 Urinary tract infection, site not specified; F03.91 Unspecified dementia, unspecified severity, with behavioral disturbance; N17.9 Acute kidney failure, unspecified; R04.0 Epistaxis; I48.2 Chronic atrial fibrillation; N40.0 Benign prostatic hyperplasia without lower urinary tract symptoms; L40.50 Arthropathic psoriasis, unspecified; I27.20 Pulmonary hypertension, unspecified; R13.10 Dysphagia, unspecified; Z79.01 Long term (current) use of anticoagulants; Z79.899 Other long term (current) drug therapy; Z88.8 Allergy status to other drugs, medicaments and biological substances; Z91.012 Allergy to eggs; Z95.0 Presence of cardiac pacemaker; I10 Essential (primary) hypertension; K59.00 Constipation, unspecified; R33.9 Retention of urine, unspecified

== ENCOUNTER → 2019-03-28 | Outpatient (REF) ==
[~2019-03-28] MED LIST changes: +ACET-683 PO; +ACET1TAB55 PO; +MULTCAP PO; +SENN-52 PO; +VITAD1000T PO; +[UNRECOGNIZED DRUG - CODE] PO
[2019-03-28 10:53] LABS: HEMATOCRIT 41.2 % (42.0-52.0); MEAN CORPUSCULAR HEMOGLOBIN 28.2 pg (27.0-33.0); MEAN CORPUSCULAR HGB CONC 29.1 g/dl (32.0-36.5); MEAN CORPUSCULAR VOLUME 96.7 fl (80.0-96.0); PLATELET COUNT, AUTOMATED 150 10^3/uL (150-450); RED BLOOD COUNT 4.26 10^6/uL (4.30-6.10); WHITE BLOOD COUNT 6.7 10^3/uL (4.0-10.0)
[2019-03-28 11:18] LABS: BLOOD UREA NITROGEN 19 MG/DL (7-18); CALCIUM LEVEL 8.4 MG/DL (8.8-10.2); CARBON DIOXIDE LEVEL 37 MEQ/L (21-32); CHLORIDE LEVEL 102 MEQ/L (98-107); CREATININE FOR GFR 0.87 MG/DL (0.70-1.30); GLOMERULAR FILTRATION RATE > 60.0 (>35); GLUCOSE, FASTING 78 MG/DL (70-100); POTASSIUM SERUM 4.8 MEQ/L (3.5-5.1); SODIUM LEVEL 142 MEQ/L (136-145)
--- NOTE | 2019-03-28 16:08 | REP ---
Clinical: Hypoxia. Comparison: 03/15/2019. Findings: Stable cardiomegaly and diffuse chronic interstitial changes are appreciated. Pleuroparenchymal opacities involving the right mid to lower lung zone increased from prior examination suggesting elements of infiltrate and effusion. No pneumothorax. Skeletal structures stable. Impression: Cardiomegaly and chronic changes. Superimposed right lower lobe infiltrate and pleural effusion. Electronically Signed by Rommel lEi MD 03/28/2019 04:00 P
== END ==
LOC: SKLAB2 09:03
PROVIDERS: ATTEND Internal Medicine
DX: R09.02 Hypoxemia (principal); Z87.01 Personal history of pneumonia (recurrent)

== ENCOUNTER → 2019-04-05 | Outpatient (REF) ==
[2019-04-05 07:49] LABS: FREE T4 1.07 NG/DL (0.76-1.46); THYROID STIMULATING HORMONE 5.46 uIU/ML (0.358-3.740)
--- NOTE | 2019-04-05 10:45 | REP ---
Clinical: Pleural effusion. Technique: PA and lateral. Comparison: 03/28/2019. Findings: Right-sided pleuroparenchymal changes and diffuse chronic interstitial changes are again noted and stable. Superimposed bilateral lower lobe infiltrates cannot be excluded. No pneumothorax. Mediastinum and cardiac silhouette are stable. Skeletal structures demonstrate stable osteopenia and degenerative changes. Impression: 1. Stable chronic interstitial changes and right-sided pleuroparenchymal changes which may include underlying acute effusion. 2. Superimposed bilateral lower lobe infiltrates suspected. Electronically Signed by Rommel Eli MD 04/05/2019 10:37 A
== END ==
LOC: SKLAB2 07:00
PROVIDERS: ATTEND Internal Medicine
DX: R94.6 Abnormal results of thyroid function studies (principal)

== ENCOUNTER → 2019-04-10 | Outpatient (REF) ==
[2019-04-10 07:30] LABS: HEMATOCRIT 40.1 % (42.0-52.0); HEMOGLOBIN 11.6 g/dl (13.5-17.5); MEAN CORPUSCULAR HEMOGLOBIN 28.3 pg (27.0-33.0); MEAN CORPUSCULAR HGB CONC 28.9 g/dl (32.0-36.5); MEAN CORPUSCULAR VOLUME 97.8 fl (80.0-96.0); WHITE BLOOD COUNT 5.2 10^3/uL (4.0-10.0)
[2019-04-10 07:59] LABS: ALBUMIN 2.6 GM/DL (3.2-5.2); ALT/SGPT 15 U/L (12-78); BILIRUBIN,TOTAL 0.6 MG/DL (0.2-1.0); BLOOD UREA NITROGEN 21 MG/DL (7-18); CALCIUM LEVEL 8.7 MG/DL (8.8-10.2); CARBON DIOXIDE LEVEL 45 MEQ/L (21-32); CHLORIDE LEVEL 99 MEQ/L (98-107); GLOMERULAR FILTRATION RATE > 60.0 (>35); GLUCOSE, FASTING 91 MG/DL (70-100); POTASSIUM SERUM 4.5 MEQ/L (3.5-5.1); SODIUM LEVEL 144 MEQ/L (136-145); TOTAL PROTEIN 7.4 GM/DL (6.4-8.2)
[2019-04-10 08:02] LABS: PLATELET COUNT, AUTOMATED 80 10^3/uL (150-450)
== END ==
LOC: SKLAB2 07:00
PROVIDERS: ATTEND Internal Medicine
DX: Z79.01 Long term (current) use of anticoagulants (principal); I10 Essential (primary) hypertension; I48.91 Unspecified atrial fibrillation

== ENCOUNTER → 2019-04-11 | Outpatient (REF) | LOC: SKLAB2 10:32 | PROVIDERS: ATTEND Internal Medicine | DX: I50.9 Heart failure, unspecified (principal) ==

== ENCOUNTER → 2019-04-13 | Outpatient (REF) ==
[~2019-04-13] MED LIST changes: +CHOL100029 PO; -ENBR50IN4; +ETAN50PE; -SULF1TAB72; +SULF400T14; -VITAD1000T PO
--- NOTE | 2019-04-13 14:14 | REP ---
PORTABLE CHEST: AP portable view of the chest is performed. COMPARISON: 04/05/2019. Right basilar infiltrate and pleural fluid is essentially unchanged. There is a lesser degree of infiltrate in the left lower lung zone. This is also unchanged. The heart and mediastinum are unchanged. IMPRESSION: Stable exam. Electronically Signed by Edwin Plaza MD 04/15/2019 10:17 A
== END ==
PROVIDERS: ATTEND Internal Medicine
DX: J18.9 Pneumonia, unspecified organism (principal)

== ENCOUNTER → 2019-04-14 | Outpatient (CLI) | payer MEDICARE, OTHER ==
[~2019-04-14] MED LIST changes: -CHOL100029 PO; +ENBR50IN4; -ETAN50PE; +ISOVUE-370 76% 100ML VIAL (Q9967) As Ordered ONE; +SULF1TAB72; -SULF400T14; +VITAD1000T PO
--- NOTE | 2019-04-14 12:21 | REP ---
CT angiography aorta and bilateral lower extremity runoff arteries: History: "To clarify CT angiography order." No clinical history is provided. CT contrast dose: 100 mL of intravenous Isovue 370. Nonvascular CT findings: There is a very small left pleural effusion, a small to moderate right pleural effusion, and there is minimal upper abdominal ascites around the liver. A fecal impaction pattern is seen with formed stool distending the rectum. A Dale catheter is noted in the urinary bladder. There are at least two bladder calculi in the right side of the bladder posteriorly. The largest of these measures 9 mm in greatest diameter. There is an intrarenal calculus centrally in the left renal pelvis. There is extensive left colonic diverticulosis with retained diverticular barium. Right colonic diverticulosis with retained diverticular barium is also seen. There is osteoporotic wedging at the L3 and L2 vertebral bodies and degenerative spondylosis is seen. Bilateral hip osteoarthritis. Vascular CT angiographic findings: The suprarenal and infrarenal abdominal aorta are somewhat tortuous but normal in caliber. Multifocal calcific plaquing is observed mild in degree. There is calcific plaquing at the origin of the celiac axis and SMA origin. These two vessels are patent. The inferior mesenteric artery origin is patent as well. Singular renal arteries are seen. Calcification is seen at the origin and proximal renal artery on the left and in the origin of the right renal artery. No high-grade stenosis is visualized. Common and internal iliac arteries are patent bilaterally. There is symmetrically slow arterial flow and indeed on the initial acquisition, the arteries are not opacified below the level of the distal external iliac arteries. A second acquisition was acquired quickly and this did capture the arteries with intravascular opacification. The common femoral arteries are patent bilaterally. The proximal SFA and profunda femoral arteries are patent. There is some atherosclerotic calcification moderate in degree but no high-grade SFA stenosis is seen on either side. There is heavy calcification in the right popliteal artery with 75% stenosis suspected. Multifocal calcification is seen in the proximal calf runoff arteries and segmental flow with multiple occlusions is suspected. This is bilateral and symmetric. There does appear to be contrast opacification in the anterior and posterior tibial arteries to the distal calf on the left as well as the peroneal artery. On the right there are is evidence of contrast crossing the ankle in the anterior tibial artery. There is subcutaneous edema in the calves bilaterally. Maximal intensity projection images demonstrate heavy multifocal vascular calcification in the distribution of the superficial femoral and profunda artery branches bilaterally. Impression: Extensive essentially diffuse vascular calcification in the arterial tree. No visceral artery occlusion or high-grade stenosis seen. A large calcific plaque is seen producing 75% narrowing of the right popliteal artery. Multifocal essentially diffuse calcification limits visualization of the lumen of the calf runoff vessels but there appears to be patency to the distal calf bilaterally. Right pleural effusion, minimal left pleural effusion and ascites and fecal impaction obstipation pattern are among the nonvascular CT findings. Electronically Signed by Dhaval Hoff MD 04/14/2019 12:42 P
== END ==
LOC: M RAD 10:23
PROVIDERS: ATTEND Internal Medicine
DX: I74.3 Embolism and thrombosis of arteries of the lower extremities (principal); J91.8 Pleural effusion in other conditions classified elsewhere; R18.8 Other ascites; K56.41 Fecal impaction
CPT/HCPCS: 75635; Q9967